=== PATIENT | male | born 1955 | race Caucasian/White ===

== ENCOUNTER 2018-05-26 16:55 | Emergency (ER) | payer OTHER, MEDICAID, SELFPAY ==
[2018-05-26 16:57] VITALS: BP 131/87; PULSE 85; RESP 20; O2SAT 97
--- NOTE | 2018-05-26 17:01 | DI.RAD.S_ITS ---
PROCEDURE: XR CHEST 1V INDICATIONS: chest tightness/soa TECHNIQUE: One view of the chest was acquired. COMPARISON: [facility], CHEST 2 VIEW, 10/19/2017, 10:49. [facility], CHEST 2 VIEW, 12/30/2017, 7:55. FINDINGS: Surgical changes and devices: None. Lungs and pleura: No pleural effusions or pneumothorax. Lungs are clear. Mediastinum: The cardiac contours are within normal limits. The aorta demonstrates calcification and tortuosity. Bones and chest wall: No suspicious bony lesions. Age-appropriate bony degenerative changes are seen. Overlying soft tissues appear unremarkable. IMPRESSION: Portable chest within normal limits. Dictated by: Quincy Peter M.D. on 05/26/2018 at 16:43 Approved by: Quincy Peter M.D. on 05/26/2018 at 16:45
[2018-05-26 17:19] LABS: Add Manual Diff / Slide Review NO; Basophils Percent Auto 0.8 % (0-2); Eosinophils Percent Auto 1.4 % (2-4); Hematocrit 42.6 % (41-53); Hemoglobin 14.8 g/dL (13.5-17.5); Lymphocytes Percent Auto 30.7 % (25-40); Mean Corpuscular HGB Conc 34.7 % (30-36); Mean Corpuscular Hemoglobin 30.8 PG (26-34); Mean Corpuscular Volume 88.8 fL (80-100); Monocytes Percent Auto 9.9 % (3-14); Neutrophils Absolute Auto 3000 /uL (3000-5900); Neutrophils Percent Auto 57.2 % (50-75); Platelet Count 190 X10^3/uL (150-400); Red Cell Distribution Width 14.5 % (11.6-14.8); White Blood Cell Count 5.3 X10^3/uL (4.5-11.0)
[2018-05-26 17:37] LABS: Alanine Aminotransferase 137 IU/L (21-72); Albumin 4.6 g/dL (3.5-5.0); Albumin Globulin Ratio 1.5 (1.0-2.8); Alkaline Phosphatase 37 U/L (38-126); Aspartate Aminotransferase 69 IU/L (17-59); BUN Creatinine Ratio 17.5 (6-22); Bilirubin Total 0.4 mg/dL (0.2-1.3); Blood Urea Nitrogen 14 mg/dL (9-20); Calcium 9.9 mg/dL (8.4-10.2); Carbon Dioxide 27 mmol/L (22-32); Chloride 103 mmol/L (98-107); Creatine Kinase 105 U/L (55-170); Estimated Glomerular Filt Rate > 60.0 mL/min (>60); Glucose 92 mg/dL (80-110); HEMOLYSIS 32 (0-50); Lipase 195 U/L (23-300); Potassium 4.5 mmol/L (3.4-5.1); Sodium 141 mmol/L (137-145); Total Protein 7.6 g/dL (6.3-8.2)
[2018-05-26 17:53] LABS: Troponin I < 0.012 ng/mL (0.01-0.034)
[2018-05-26 18:07] VITALS: BP 130/84; PULSE 84; RESP 18; O2SAT 96
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
[2018-05-26] MEDS: predniSONE 20 MG TABLET 60 MG PO (18:57)
[2018-05-26 19:02] VITALS: BP 136/81; PULSE 80; RESP 23; O2SAT 98
[2018-05-26 19:17] VITALS: BP 135/83
[2018-05-26 19:23] VITALS: BP 136/83; PULSE 82; RESP 15; TEMP 36.6; O2SAT 96
== END 2018-05-26 19:24 | disposition home or self-care (01) ==
PROVIDERS: Emergency Medicine; Emergency Provider Emergency Medicine; Family Provider Family Medicine; PCP Family Medicine
DX: J45.901 Unspecified asthma with (acute) exacerbation (principal)
CPT/HCPCS: 36591; 71045; 80053; 82550; 82553; 83690; 84484; 85025; 93005; 93010; 99283; 99285

== ENCOUNTER 2019-03-15 08:15 | Outpatient (RCR) | payer OTHER, MEDICAID, SELFPAY ==
--- NOTE | 2019-01-25 09:38 | PT.OIE ---
Current Diagnoses Unilateral primary osteoarthritis, unspecified knee (01/25/19) Past Medical History (Last Reviewed 06/02/18 @ 18:23 by Tiff Amaral MD) Flu (Resolved) Pneumonia (Resolved) Pulmonary nodule (Acute) Asthma with exacerbation (Inactive) Past Surgical History (Last Updated 06/02/18 @ 18:24 by Tiff Amaral MD) No pertinent past surgical history (Acute) Provider Visit Care Team Role Provider Type Alva Rogers MD Primary Care Provider Non-Staff Specialty: Medical Address: [address] [place] [address], [id number] Email: Nelson Thomas MD Attending Provider Physician Specialty: Orthopedic Surgery Address: [address] [place] [address], [id number] Email: [email or web address] [facility] Initial Evaluation PT-OP-A Visit Information Start: 01/25/19 08:59 Freq: Status: Active Protocol: Document 01/25/19 08:15 HH (Rec: 01/25/19 09:38 HH [email or web address]) Out-Patient Physical Therapy Visit Information Visit Information Visit Type Initial Evaluation Visit Start Time 08:15 Visit Stop Time 09:00 Total Visit Minutes 45 Visit Number 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 His pain got worse since 2017 and started to receive Hyaluronic acid injection for both knees 3 times every 5 months. He states it is very helpful to control his pain. Pt also partipated outpatient PT in [place] for overall strengthening and balance training but he was d/c early Oct, 2018. Pt's pain usually get worse with getting up from chair, getting up from floor, climbing ladder and descending from stairs. Pt used step over for ascend but step to pattern for decsend. He tends to feel better with ice and inactivity. 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 Prior Treatments and Tests Hyaluronic acid injection ( last shot in oct, 2018) Future Testing and Treatments Planned Hyaluronic acid injection Treatment Goals Patient/Caregiver Goals 1. To be able to get up and down from chair easier without discomfort 2. pain free for functional activities 3. use step over pattern for stair descending 4. Able to walk > 1mile without pain Prior Functional Status Baseline Function- ADL's Independent Baseline Function- Mobility Independent Current Functional Impairments (Reported) Functional Limitations- Mobility/Gait step to gait during stair descending Increased WB on LLE during gait PT-OP-C Subjective Start: 01/25/19 08:59 Freq: Status: Active Protocol: Document 01/25/19 08:15 HH (Rec: 01/25/19 09:11 HH [email or web address]) OP-PT Subjective Patient Comments Patient Comments My knee pain today is actually pretty good compared to most of the days. I am excited to start PT. Patient Questionnaires Lower Extremity Functional Scale LEFS Score 25 LEFS Impairment 60 to 79% Impaired (Score 17- 31) OP-PT Pain Assessment Location Bilateral knee Pain Location Details joint line Intensity 7 Scale Used Numeric (1 - 10) Description Aching Chronic Dull Frequency Frequent Pain Aggravating Factors ADL's Activity Exercise Standing Walking Stair Climbing Lifting Pain Alleviating Factors Cold Inactivity PT-OP-D Balance Start: 01/25/19 08:59 Freq: Status: Active Protocol: Document 01/25/19 08:15 HH (Rec: 01/25/19 09:38 [email or web address]) OP-PT Balance Assessment Sitting Balance Static Sitting Balance Ability Normal Dynamic Sitting Balance Ability Normal Standing Balance Static Standing Balance Ability Normal Dynamic Standing Balance Ability Normal Balance Tests Single Limb Standing Single Limb- Right 13 Single Limb- Left 15 Tandem Tandem Standing 20 Other Other Balance Tests Performed Single leg stance with EC= 2 s tandem with EC = 2 s Howard Fall Scale Copyright Permission Anita HARO, Anita RM, Saulo SJ. Development of a scale to identify the fall- prone patient. Can J Aging 1989;8;366-7. Nikky Howard (2009). Preventing patient falls. (2nd ed). [place]: [place]. PT-OP-E Functional Tests Start: 01/25/19 08:59 Freq: Status: Active Protocol: Document 01/25/19 08:15 HH (Rec: 01/25/19 09:38 [email or web address]) Functional Tests Five Times Sit to Stand Test Score 14 PT-OP-G Mobility & Gait Start: 01/25/19 08:59 Freq: Status: Active Protocol: Document 01/25/19 08:15 HH (Rec: 01/25/19 09:38 [email or web address]) OP Gait Assessment Gait Gait Assistance Required: Independent Assistive Devices Assistive Device None Gait Deviations General Gait Pattern Antalgic Decreased Stride Length Decreased Feet Clearance Wide Based Gait Factors Limiting Gait Function Factors Limiting Gait Function Decreased Activity Tolerance Decreased Strength Limited Range of Motion Pain Poor Balance Comments Gait Comments Monument R step length; increased WB on LLE (harder impact): WBOS Stair Climbing Evaluation Evaluation Level of Assist On Stairs Independent Technique/Endurance Stair Climbing Direction Ascend Stair Climbing Technique Step Over Step Step to Step Comments Stair Climbing Comments ascend= step over descend = step to PT-OP-J Posture/Palpation/Skin Start: 01/25/19 08:59 Freq: Status: Active Protocol: Document 01/25/19 08:15 HH (Rec: 01/25/19 09:38 [email or web address]) Posture Evaluation Position Standing Evaluation View Anterior Weight Distribution Weight Shifted Left Knee Posture (L) Ext. Tibial Torsion (R) Ext. Tibial Torsion (R) Excess Flexion Ankle/Foot Posture (L) Pronated (R) Pronated Palpation Assessment Location Medial knee joint line Palpation Findings Tenderness Palpation Details significant tenderness to touch and pressure and medial joint line PT-OP-K Range of Motion Start: 01/25/19 08:59 Freq: Status: Active Protocol: Document 01/25/19 08:15 HH (Rec: 01/25/19 09:38 [email or web address]) Knee Goniometric Range of Motion Knee Measured in Degrees Right Knee ROM WFL Yes Patient Position Supine Flexion Active (degrees) 120 Flexion Passive (degrees) 130 Extension Active (degrees) 7 Left Knee ROM WFL Yes Patient Position Supine Flexion Active (degrees) 130 Flexion Passive (degrees) 140 Extension Active (degrees) 2 PT-OP-L Special Tests Start: 01/25/19 08:59 Freq: Status: Active Protocol: Document 01/25/19 08:15 HH (Rec: 01/25/19 09:38 [email or web address]) Special Tests Knee Special Tests Apley's Compression Test Results -ve Faustino Test Test Results -ve Varus- 0 Degrees Test Results -ve Valgus- 25 Degrees Test Results +ve on R Varus- 25 Degrees Test Results +ve on R Valgus- 0 Degrees Test Results -ve PT-OP-M Strength Start: 01/25/19 08:59 Freq: Status: Active Protocol: Document 01/25/19 08:15 (Rec: 01/25/19 09:38 [email or web address]) Hip Strength Hip Manual Muscle Testing Right Flexion (L2) 5 Normal Extension (S1) 5 Normal Abduction 5 Normal Adduction 5 Normal Left Flexion (L2) 5 Normal Extension (S1) 4 Good Abduction 4 Good Adduction 4 Good Knee Strength Knee Manual Muscle Testing Right Flexion (S2) 4+ Good+ Extension (L3) 4+ Good+ Left Flexion (S2) 4- Good- Extension (L3) 4- Good- PT-OP-T Assessment and Plan Start: 01/25/19 08:59 Freq: Status: Active Protocol: Document 01/25/19 08:15 (Rec: 01/25/19 09:38 [email or web address]) Physical Therapy Assessment Rehab Potential Rehabilitation Potential Excellent Evaluation Complexity Number of Personal Factors/Comorbidities 1-2 Number of Body Systems Impaired 1-2 Clinical Presentation at Evaluation Stable Impairments Impairments Activity Tolerance Balance Functional Activities Functional Mobility Gait Pain Posture ROM Sensation Soft Tissue Mobility Strength Goals transfers Impairment increased time for sit to stand and floor recovery Halfway Goal (LTG) Pt will be able to complete 5x STS in 10 seconds without UE support and recover from floor independently. 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 LTG Duration 8 weeks Stair climbing Impairment pt uses step to pattern for descend Halfway Goal (LTG) Pt will be able to descend with step over pattern safely and independently. LTG Duration 8 weeks LEFS Impairment low score= 25 (60-79% impairment) Natural Fabricator Goal (LTG) Pt will score 20-39% bracket to improve his overall functional mobility and quality of life such as pain free for sit to stand, standing >1 hour, walk >1 hour etc. LTG Duration 8 weeks Assessment Summary Assessment Pt is a mod complexity due to his chronic B knee pain and balance deficits. Pt's currently does not have too much discomfort/pain due to his Hyaluronic acid injection. However, there's noticeable decreased knee ROM (R>L) and strength (L>R) upon assessment . Pt tends to amb with increase WB on L side along with shorted R step length possibly due to pain. 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 Pt performed 5 x STS = 14s ( average cut off =11.4s), has significant difficult time with eyes closed for balance activities. Pt will benefit from skilled PT to improve his overall knee ROM, B LE strengthening to optimize his functional mobility such as stair climbing and tolerance for walking and standing. Physical Therapy Plan Frequency and Duration Frequency of Treatment 2x/Week Duration of Treatment 8 weeks Plan of Care Start Date 01/25/19 Plan of Care End Date 03/27/19 Therapeutic Interventions Therapeutic Interventions Balance Training Gait Training Home Exercise Program Joint Mobilizations Manual Therapy Neuromuscular Re-education Patient/Caregiver Education Self-Care/Home Management Soft Tissue Mobilization Taping Therapeutic Activities Therapeutic Exercises Modalities Cold Pack/Ice Massage Electric Stimulation Hot Packs Infrared Therapy Ultrasound Next Visit Focus/Plan Next Note Type Treatment Note Next Visit Plan provide HEP start bike/ eliptical B TKE leg press focus on control and strength single leg stance , strengthening , control hip hinge
--- NOTE | 2019-01-25 09:38 | PT.OPPOC ---
Current Diagnoses Unilateral primary osteoarthritis, unspecified knee (01/25/19) Provider Visit Care Team Role Provider Type Alva Rogers MD Primary Care Provider Non-Staff Specialty: Medical Address: [address] [place] [address], [id number] Email: Nelson Thomas MD Attending Provider Physician Specialty: Orthopedic Surgery Address: [address] [place] [address], [id number] Email: [email or web address] Plan Of Care PT-OP-T Assessment and Plan Start: 01/25/19 08:59 Freq: Status: Active Protocol: Document 01/25/19 08:15 HH (Rec: 01/25/19 09:38 HH [email or web address]) Physical Therapy Assessment Rehab Potential Rehabilitation Potential Excellent Evaluation Complexity Number of Personal Factors/Comorbidities 1-2 Number of Body Systems Impaired 1-2 Clinical Presentation at Evaluation Stable Impairments Impairments Activity Tolerance Balance Functional Activities Functional Mobility Gait Pain Posture ROM Sensation Soft Tissue Mobility Strength Goals transfers Impairment increased time for sit to stand and floor recovery Assisted Goal (LTG) Pt will be able to complete 5x STS in 10 seconds without UE support and recover from floor independently. 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 LTG Duration 8 weeks Stair climbing Impairment pt uses step to pattern for descend Operating System Designer Goal (LTG) Pt will be able to descend with step over pattern safely and independently. LTG Duration 8 weeks LEFS Impairment low score= 25 (60-79% impairment) Operating System Designer Goal (LTG) Pt will score 20-39% bracket to improve his overall functional mobility and quality of life such as pain free for sit to stand, standing >1 hour, walk >1 hour etc. LTG Duration 8 weeks Assessment Summary Assessment Pt is a mod complexity due to his chronic B knee pain and balance deficits. Pt's currently does not have too much discomfort/pain due to his Hyaluronic acid injection. However, there's noticeable decreased knee ROM (R>L) and strength (L>R) upon assessment . Pt tends to amb with increase WB on L side along with shorted R step length possibly due to pain. 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 Pt performed 5 x STS = 14s ( average cut off =11.4s), has significant difficult time with eyes closed for balance activities. Pt will benefit from skilled PT to improve his overall knee ROM, B LE strengthening to optimize his functional mobility such as stair climbing and tolerance for walking and standing. Physical Therapy Plan Frequency and Duration Frequency of Treatment 2x/Week Duration of Treatment 8 weeks Plan of Care Start Date 01/25/19 Plan of Care End Date 03/27/19 Therapeutic Interventions Therapeutic Interventions Balance Training Gait Training Home Exercise Program Joint Mobilizations Manual Therapy Neuromuscular Re-education Patient/Caregiver Education Self-Care/Home Management Soft Tissue Mobilization Taping Therapeutic Activities Therapeutic Exercises Modalities Cold Pack/Ice Massage Electric Stimulation Hot Packs Infrared Therapy Ultrasound Next Visit Focus/Plan Next Note Type Treatment Note Next Visit Plan provide HEP start bike/ eliptical B TKE leg press focus on control and strength single leg stance , strengthening , control hip hinge Plan of Care Dates Plan of Care Start Date 01/25/19 Plan of Care End Date 03/27/19 Please Sign and Return: I have reviewed this Plan of Care and certify that the skilled therapy services above are required to meet the patient?s needs. Physician Signature Date Printed Name and Credentials Clinical Instructor Signature Printed Name and Credentials
--- NOTE | 2019-01-27 12:58 | PT.OTN ---
Current Diagnoses Unilateral primary osteoarthritis, unspecified knee (01/27/19) Physical Therapy Treatment Note PT-OP-A Visit Information Start: 01/25/19 08:59 Freq: Status: Active Protocol: Document 01/27/19 12:57 EA (Rec: 01/27/19 12:58 EA [id number]) Out-Patient Physical Therapy Visit Information Visit Information Visit Type Treatment Note Visit Start Time 12:15 Visit Stop Time 13:00 Total Visit Minutes 45 Visit Number 2 Number of OTOLARYNGOLOGY REP Visits 0 PT-OP-B Current Condition Start: 01/25/19 08:59 Freq: Status: Active Protocol: Document 01/25/19 08:15 HH (Rec: 01/25/19 09:11 HH [email or web address]) Current Condition History of Current Condition Onset Date >10 years ago Current Complaints B knee pain, impaired gait, decreased activity tolerance History of Current Condition Pt presents to clinic with c/o chronic B knee pain due to OA more than 10 years ago. His pain got worse since 2016 and started to receive Hyaluronic acid injection for both knees 3 times every 5 months. He states it is very helpful to control his pain. Pt also partipated outpatient PT in [place] for overall strengthening and balance training but he was d/c early Oct, 2018. Pt's pain usually get worse with getting up from chair, getting up from floor, climbing ladder and descending from stairs. Pt used step over for ascend but step to pattern for decsend. He tends to feel better with ice and inactivity. 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 Prior Treatments and Tests Hyaluronic acid injection ( last shot in oct, 2018) Future Testing and Treatments Planned Hyaluronic acid injection Treatment Goals Patient/Caregiver Goals 1. To be able to get up and down from chair easier without discomfort 2. pain free for functional activities 3. use step over pattern for stair descending 4. Able to walk > 1mile without pain Prior Functional Status Baseline Function- ADL's Independent Baseline Function- Mobility Independent Current Functional Impairments (Reported) Functional Limitations- Mobility/Gait step to gait during stair descending Increased WB on LLE during gait PT-OP-C Subjective Start: 01/25/19 08:59 Freq: Status: Active Protocol: Document 01/27/19 12:45 EA (Rec: 01/27/19 12:57 EA [id number]) OP-PT Subjective Patient Comments Patient Comments This is one of my bad days states unable to sleep last due to leg cramps. PT-OP-D Balance Start: 01/25/19 08:59 Freq: Status: Active Protocol: Document 01/25/19 08:15 HH (Rec: 01/25/19 09:38 HH [email or web address]) OP-PT Balance Assessment Sitting Balance Static Sitting Balance Ability Normal Dynamic Sitting Balance Ability Normal Standing Balance Static Standing Balance Ability Normal Dynamic Standing Balance Ability Normal Balance Tests Single Limb Standing Single Limb- Right 13 Single Limb- Left 15 Tandem Tandem Standing 20 Other Other Balance Tests Performed Single leg stance with EC= 2 s tandem with EC = 2 s Howard Fall Scale Copyright Permission Anita HARO, Anita RM, Saulo SJ. Development of a scale to identify the fall- prone patient. Can J Aging 1989;8;366-7. Nikky Howard (2009). Preventing patient falls. (2nd ed). [place]: [place]. PT-OP-E Functional Tests Start: 01/25/19 08:59 Freq: Status: Active Protocol: Document 01/25/19 08:15 HH (Rec: 01/25/19 09:38 HH [email or web address]) Functional Tests Five Times Sit to Stand Test Score 14 PT-OP-G Mobility & Gait Start: 01/25/19 08:59 Freq: Status: Active Protocol: Document 01/25/19 08:15 HH (Rec: 01/25/19 09:38 [email or web address]) OP Gait Assessment Gait Gait Assistance Required: Independent Assistive Devices Assistive Device None Gait Deviations General Gait Pattern Antalgic Decreased Stride Length Decreased Feet Clearance Wide Based Gait Factors Limiting Gait Function Factors Limiting Gait Function Decreased Activity Tolerance Decreased Strength Limited Range of Motion Pain Poor Balance Comments Gait Comments Stewart R step length; increased WB on LLE (harder impact): WBOS Stair Climbing Evaluation Evaluation Level of Assist On Stairs Independent Technique/Endurance Stair Climbing Direction Ascend Stair Climbing Technique Step Over Step Step to Step Comments Stair Climbing Comments ascend= step over descend = step to PT-OP-J Posture/Palpation/Skin Start: 01/25/19 08:59 Freq: Status: Active Protocol: Document 01/25/19 08:15 HH (Rec: 01/25/19 09:38 HH [email or web address]) Posture Evaluation Position Standing Evaluation View Anterior Weight Distribution Weight Shifted Left Knee Posture (L) Ext. Tibial Torsion (R) Ext. Tibial Torsion (R) Excess Flexion Ankle/Foot Posture (L) Pronated (R) Pronated Palpation Assessment Location Medial knee joint line Palpation Findings Tenderness Palpation Details significant tenderness to touch and pressure and medial joint line PT-OP-K Range of Motion Start: 01/25/19 08:59 Freq: Status: Active Protocol: Document 01/25/19 08:15 HH (Rec: 01/25/19 09:38 HH [email or web address]) Knee Goniometric Range of Motion Knee Measured in Degrees Right Knee ROM WFL Yes Patient Position Supine Flexion Active (degrees) 120 Flexion Passive (degrees) 130 Extension Active (degrees) 7 Left Knee ROM WFL Yes Patient Position Supine Flexion Active (degrees) 130 Flexion Passive (degrees) 140 Extension Active (degrees) 2 PT-OP-L Special Tests Start: 01/25/19 08:59 Freq: Status: Active Protocol: Document 01/25/19 08:15 HH (Rec: 01/25/19 09:38 HH [email or web address]) Special Tests Knee Special Tests Apley's Compression Test Results -ve Faustino Test Test Results -ve Varus- 0 Degrees Test Results -ve Valgus- 25 Degrees Test Results +ve on R Varus- 25 Degrees Test Results +ve on R Valgus- 0 Degrees Test Results -ve PT-OP-M Strength Start: 01/25/19 08:59 Freq: Status: Active Protocol: Document 01/25/19 08:15 HH (Rec: 01/25/19 09:38 HH [email or web address]) Hip Strength Hip Manual Muscle Testing Right Flexion (L2) 5 Normal Extension (S1) 5 Normal Abduction 5 Normal Adduction 5 Normal Left Flexion (L2) 5 Normal Extension (S1) 4 Good Abduction 4 Good Adduction 4 Good Knee Strength Knee Manual Muscle Testing Right Flexion (S2) 4+ Good+ Extension (L3) 4+ Good+ Left Flexion (S2) 4- Good- Extension (L3) 4- Good- PT-OP-Q Treatments Start: 01/25/19 08:59 Freq: Status: Active Protocol: Document 01/27/19 12:45 EA (Rec: 01/27/19 12:57 EA [id number]) Cardio Equipment Recumbent Elliptical (Ailvxing net) Duration (Minutes) 6 Resistance 3 Gym Equipment Shuttle Recovery Unilateral Squats Resistance 2 cords Shuttle Recovery Platform Stable Reps/Time x 12 reps x 2 set Bilateral Squats Details pain free range Resistance 4 cords Shuttle Recovery Platform Stable Reps/Time x 15 reps x 2 Therapeutic Exercises Supine Exercises 1 Supine Exercise Name hamstring stretch Side bilateral Reps/Minutes x 15 SH Sidelying Exercises 1 Sidelying Exercise Name qudas stretch Side bilateral Reps/Minutes x 15SH Standing Exercises 3 Standing Exercise Name 4 stairs descent and step back with both hand support Side right Reps/Minutes x 10 reps Comments left d/c due to pain 2 Standing Exercise Name terminal knee ext Side bilateral Equipment Used Lv 4 Reps/Minutes x 10 reps 1 Standing Exercise Name wall squats Side bilateral Reps/Minutes x 10 reps Self-Care/Home Management Treatment Education Patient Education Home Exercise Program Joint Protection Pain Management Other Education Home exercises given and educated with safety PT-OP-R Modalities Start: 01/25/19 08:59 Freq: Status: Active Protocol: Document 01/27/19 12:45 EA (Rec: 01/27/19 12:57 EA [email or web address]) Hot Pack/Cold Pack Treatment Cold Pack Patient Position Hooklying Treatment Duration (minutes) 15 Patient Tolerance Fair PT-OP-T Assessment and Plan Start: 01/25/19 08:59 Freq: Status: Active Protocol: Document 01/27/19 12:45 EA (Rec: 01/27/19 12:57 EA [id number]) Physical Therapy Assessment Assessment Summary Assessment Pt requires cues with squats and leg presses as both feet tends to move laterally. Patient shows decreased tolerance to all exercises and requires frequent rests. Physical Therapy Plan Next Visit Focus/Plan Next Note Type Treatment Note
--- NOTE | 2019-02-08 09:17 | PT.OTN ---
Current Diagnoses Unilateral primary osteoarthritis, unspecified knee (02/08/19) Physical Therapy Treatment Note PT-OP-A Visit Information Start: 01/25/19 08:59 Freq: Status: Active Protocol: Document 02/08/19 08:15 HH (Rec: 02/08/19 09:17 [email or web address]) Out-Patient Physical Therapy Visit Information Visit Information Visit Type Treatment Note Visit Start Time 08:15 Visit Stop Time 09:00 Total Visit Minutes 45 Visit Number 3 Number of MODULAR HOME CREW MEMBER Visits 0 PT-OP-B Current Condition Start: 01/25/19 08:59 Freq: Status: Active Protocol: Document 01/25/19 08:15 HH (Rec: 01/25/19 09:11 HH [email or web address]) Current Condition History of Current Condition Onset Date >10 years ago Current Complaints B knee pain, impaired gait, decreased activity tolerance History of Current Condition Pt presents to clinic with c/o chronic B knee pain due to OA more than 10 years ago. His pain got worse since 2016 and started to receive Hyaluronic acid injection for both knees 3 times every 5 months. He states it is very helpful to control his pain. Pt also partipated outpatient PT in [place] for overall strengthening and balance training but he was d/c early Oct, 2018. Pt's pain usually get worse with getting up from chair, getting up from floor, climbing ladder and descending from stairs. Pt used step over for ascend but step to pattern for decsend. He tends to feel better with ice and inactivity. 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 Prior Treatments and Tests Hyaluronic acid injection ( last shot in oct, 2018) Future Testing and Treatments Planned Hyaluronic acid injection Treatment Goals Patient/Caregiver Goals 1. To be able to get up and down from chair easier without discomfort 2. pain free for functional activities 3. use step over pattern for stair descending 4. Able to walk > 1mile without pain Prior Functional Status Baseline Function- ADL's Independent Baseline Function- Mobility Independent Current Functional Impairments (Reported) Functional Limitations- Mobility/Gait step to gait during stair descending Increased WB on LLE during gait PT-OP-C Subjective Start: 01/25/19 08:59 Freq: Status: Active Protocol: Document 02/08/19 08:15 HH (Rec: 02/08/19 09:17 [email or web address]) OP-PT Subjective Patient Comments Patient Comments The past couple days was bad. Working 12-15 hours a day makes my knee hurt. PT-OP-D Balance Start: 01/25/19 08:59 Freq: Status: Active Protocol: Document 01/25/19 08:15 HH (Rec: 01/25/19 09:38 HH [email or web address]) OP-PT Balance Assessment Sitting Balance Static Sitting Balance Ability Normal Dynamic Sitting Balance Ability Normal Standing Balance Static Standing Balance Ability Normal Dynamic Standing Balance Ability Normal Balance Tests Single Limb Standing Single Limb- Right 13 Single Limb- Left 15 Tandem Tandem Standing 20 Other Other Balance Tests Performed Single leg stance with EC= 2 s tandem with EC = 2 s Howard Fall Scale Copyright Permission Anita HARO, Anita RM, Saulo SJ. Development of a scale to identify the fall- prone patient. Can J Aging 1989;8;366-7. Nikky Howard (2009). Preventing patient falls. (2nd ed). [place]: [place]. PT-OP-E Functional Tests Start: 01/25/19 08:59 Freq: Status: Active Protocol: Document 01/25/19 08:15 HH (Rec: 01/25/19 09:38 HH [email or web address]) Functional Tests Five Times Sit to Stand Test Score 14 PT-OP-G Mobility & Gait Start: 01/25/19 08:59 Freq: Status: Active Protocol: Document 01/25/19 08:15 HH (Rec: 01/25/19 09:38 [email or web address]) OP Gait Assessment Gait Gait Assistance Required: Independent Assistive Devices Assistive Device None Gait Deviations General Gait Pattern Antalgic Decreased Stride Length Decreased Feet Clearance Wide Based Gait Factors Limiting Gait Function Factors Limiting Gait Function Decreased Activity Tolerance Decreased Strength Limited Range of Motion Pain Poor Balance Comments Gait Comments [place] R step length; increased WB on LLE (harder impact): WBOS Stair Climbing Evaluation Evaluation Level of Assist On Stairs Independent Technique/Endurance Stair Climbing Direction Ascend Stair Climbing Technique Step Over Step Step to Step Comments Stair Climbing Comments ascend= step over descend = step to PT-OP-J Posture/Palpation/Skin Start: 01/25/19 08:59 Freq: Status: Active Protocol: Document 01/25/19 08:15 HH (Rec: 01/25/19 09:38 HH [email or web address]) Posture Evaluation Position Standing Evaluation View Anterior Weight Distribution Weight Shifted Left Knee Posture (L) Ext. Tibial Torsion (R) Ext. Tibial Torsion (R) Excess Flexion Ankle/Foot Posture (L) Pronated (R) Pronated Palpation Assessment Location Medial knee joint line Palpation Findings Tenderness Palpation Details significant tenderness to touch and pressure and medial joint line PT-OP-K Range of Motion Start: 01/25/19 08:59 Freq: Status: Active Protocol: Document 01/25/19 08:15 HH (Rec: 01/25/19 09:38 [email or web address]) Knee Goniometric Range of Motion Knee Measured in Degrees Right Knee ROM WFL Yes Patient Position Supine Flexion Active (degrees) 120 Flexion Passive (degrees) 130 Extension Active (degrees) 7 Left Knee ROM WFL Yes Patient Position Supine Flexion Active (degrees) 130 Flexion Passive (degrees) 140 Extension Active (degrees) 2 PT-OP-L Special Tests Start: 01/25/19 08:59 Freq: Status: Active Protocol: Document 01/25/19 08:15 HH (Rec: 01/25/19 09:38 [email or web address]) Special Tests Knee Special Tests Apley's Compression Test Results -ve Faustino Test Test Results -ve Varus- 0 Degrees Test Results -ve Valgus- 25 Degrees Test Results +ve on R Varus- 25 Degrees Test Results +ve on R Valgus- 0 Degrees Test Results -ve PT-OP-M Strength Start: 01/25/19 08:59 Freq: Status: Active Protocol: Document 01/25/19 08:15 HH (Rec: 01/25/19 09:38 [email or web address]) Hip Strength Hip Manual Muscle Testing Right Flexion (L2) 5 Normal Extension (S1) 5 Normal Abduction 5 Normal Adduction 5 Normal Left Flexion (L2) 5 Normal Extension (S1) 4 Good Abduction 4 Good Adduction 4 Good Knee Strength Knee Manual Muscle Testing Right Flexion (S2) 4+ Good+ Extension (L3) 4+ Good+ Left Flexion (S2) 4- Good- Extension (L3) 4- Good- PT-OP-Q Treatments Start: 01/25/19 08:59 Freq: Status: Active Protocol: Document 02/08/19 08:15 HH (Rec: 02/08/19 09:17 HH [email or web address]) Gym Equipment Shuttle Recovery bilateral squats (feet at center) Resistance 3 cords Shuttle Recovery Platform Stable Reps/Time 15 reps x 2 Unilateral Squats Resistance 2 cords Shuttle Recovery Platform Stable Reps/Time x 12 reps x 2 set Bilateral Squats Details pain free range (feet towards top of platform) Resistance 3 cords Shuttle Recovery Platform Stable Reps/Time 15 reps x 2 Therapeutic Exercises Supine Exercises hip ER and tibial IR Side bilateral Equipment Used green band Reps/Minutes 8 mins Comments faciltiate hip ER Manual Therapy Treatment Joint Mobilizations PA mob Grade III Body Position Sitting Reps/Duration 5 mins B knee distraction Grade III Body Position Sitting Reps/Duration 5 mins Self-Care/Home Management Treatment Education Patient Education Home Exercise Program Joint Protection Pain Management Other Education HEP hip ER in supine Home exercises given and educated with safety PT-OP-R Modalities Start: 01/25/19 08:59 Freq: Status: Active Protocol: Document 01/27/19 12:45 EA (Rec: 01/27/19 12:57 EA [id number]) Hot Pack/Cold Pack Treatment Cold Pack Patient Position Hooklying Treatment Duration (minutes) 15 Patient Tolerance Fair PT-OP-T Assessment and Plan Start: 01/25/19 08:59 Freq: Status: Active Protocol: Document 02/08/19 08:15 HH (Rec: 02/08/19 09:17 HH [email or web address]) Physical Therapy Assessment Goals transfers Impairment increased time for sit to stand and floor recovery Correction Goal (LTG) Pt will be able to complete 5x STS in 10 seconds without UE support and recover from floor independently. 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 LTG Duration 8 weeks Stair climbing Impairment pt uses step to pattern for descend Correction Goal (LTG) Pt will be able to descend with step over pattern safely and independently. LTG Duration 8 weeks LEFS Impairment low score= 25 (60-79% impairment) Correction Goal (LTG) Pt will score 20-39% bracket to improve his overall functional mobility and quality of life such as pain free for sit to stand, standing >1 hour, walk >1 hour etc. LTG Duration 8 weeks Assessment Summary Assessment Pt denies pain during joint mob. pt was able to stand up from regular chair without discomfort but c/o pain during shuttle leg press with 3 cords (75#) which is somewhat inconsistent. He also often request for rest/ restroom break due to SOB/ reported pain. Educated pt the importance of increasing physical activities in pain free range for weight loss. Pt also states I will eventually get a surgery. Physical Therapy Plan Next Visit Focus/Plan Next Note Type Treatment Note Next Visit Plan pain free range of LLE strengthening <90-100 degrees bike/ eliptical ankle df, big toe df hip er, abductor stregnthening
--- NOTE | 2019-02-22 11:31 | PT.OTN ---
Current Diagnoses Unilateral primary osteoarthritis, unspecified knee (02/22/19) Physical Therapy Treatment Note PT-OP-A Visit Information Start: 01/25/19 08:59 Freq: Status: Active Protocol: Document 02/22/19 08:15 HH (Rec: 02/22/19 11:31 [email or web address]) Out-Patient Physical Therapy Visit Information Visit Information Visit Type Treatment Note Visit Start Time 08:15 Visit Stop Time 09:00 Total Visit Minutes 45 Visit Number 4 Number of SALES PROMOTION MANAGER Visits 0 PT-OP-B Current Condition Start: 01/25/19 08:59 Freq: Status: Active Protocol: Document 01/25/19 08:15 HH (Rec: 01/25/19 09:11 [email or web address]) Current Condition History of Current Condition Onset Date >10 years ago Current Complaints B knee pain, impaired gait, decreased activity tolerance History of Current Condition Pt presents to clinic with c/o chronic B knee pain due to OA more than 10 years ago. His pain got worse since 2016 and started to receive Hyaluronic acid injection for both knees 3 times every 5 months. He states it is very helpful to control his pain. Pt also partipated outpatient PT in [place] for overall strengthening and balance training but he was d/c early Oct, 2018. Pt's pain usually get worse with getting up from chair, getting up from floor, climbing ladder and descending from stairs. Pt used step over for ascend but step to pattern for decsend. He tends to feel better with ice and inactivity. 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 Prior Treatments and Tests Hyaluronic acid injection ( last shot in oct, 2018) Future Testing and Treatments Planned Hyaluronic acid injection Treatment Goals Patient/Caregiver Goals 1. To be able to get up and down from chair easier without discomfort 2. pain free for functional activities 3. use step over pattern for stair descending 4. Able to walk > 1mile without pain Prior Functional Status Baseline Function- ADL's Independent Baseline Function- Mobility Independent Current Functional Impairments (Reported) Functional Limitations- Mobility/Gait step to gait during stair descending Increased WB on LLE during gait PT-OP-C Subjective Start: 01/25/19 08:59 Freq: Status: Active Protocol: Document 02/22/19 08:15 HH (Rec: 02/22/19 11:31 [email or web address]) OP-PT Subjective Patient Comments Patient Comments It's been the same and my pain gets aggravated easily after working. I;ve been wearing my comfort shoes more often lately. PT-OP-D Balance Start: 01/25/19 08:59 Freq: Status: Active Protocol: Document 01/25/19 08:15 HH (Rec: 01/25/19 09:38 HH [email or web address]) OP-PT Balance Assessment Sitting Balance Static Sitting Balance Ability Normal Dynamic Sitting Balance Ability Normal Standing Balance Static Standing Balance Ability Normal Dynamic Standing Balance Ability Normal Balance Tests Single Limb Standing Single Limb- Right 13 Single Limb- Left 15 Tandem Tandem Standing 20 Other Other Balance Tests Performed Single leg stance with EC= 2 s tandem with EC = 2 s Howard Fall Scale Copyright Permission Anita HARO, Anita RM, Saulo SJ. Development of a scale to identify the fall- prone patient. Can J Aging 1989;8;366-7. Nikky Howard (2009). Preventing patient falls. (2nd ed). [place]: [place]. PT-OP-E Functional Tests Start: 01/25/19 08:59 Freq: Status: Active Protocol: Document 01/25/19 08:15 HH (Rec: 01/25/19 09:38 [email or web address]) Functional Tests Five Times Sit to Stand Test Score 14 PT-OP-G Mobility & Gait Start: 01/25/19 08:59 Freq: Status: Active Protocol: Document 01/25/19 08:15 HH (Rec: 01/25/19 09:38 [email or web address]) OP Gait Assessment Gait Gait Assistance Required: Independent Assistive Devices Assistive Device None Gait Deviations General Gait Pattern Antalgic Decreased Stride Length Decreased Feet Clearance Wide Based Gait Factors Limiting Gait Function Factors Limiting Gait Function Decreased Activity Tolerance Decreased Strength Limited Range of Motion Pain Poor Balance Comments Gait Comments [place] R step length; increased WB on LLE (harder impact): WBOS Stair Climbing Evaluation Evaluation Level of Assist On Stairs Independent Technique/Endurance Stair Climbing Direction Ascend Stair Climbing Technique Step Over Step Step to Step Comments Stair Climbing Comments ascend= step over descend = step to PT-OP-J Posture/Palpation/Skin Start: 01/25/19 08:59 Freq: Status: Active Protocol: Document 01/25/19 08:15 HH (Rec: 01/25/19 09:38 HH [email or web address]) Posture Evaluation Position Standing Evaluation View Anterior Weight Distribution Weight Shifted Left Knee Posture (L) Ext. Tibial Torsion (R) Ext. Tibial Torsion (R) Excess Flexion Ankle/Foot Posture (L) Pronated (R) Pronated Palpation Assessment Location Medial knee joint line Palpation Findings Tenderness Palpation Details significant tenderness to touch and pressure and medial joint line PT-OP-K Range of Motion Start: 01/25/19 08:59 Freq: Status: Active Protocol: Document 01/25/19 08:15 HH (Rec: 01/25/19 09:38 [email or web address]) Knee Goniometric Range of Motion Knee Measured in Degrees Right Knee ROM WFL Yes Patient Position Supine Flexion Active (degrees) 120 Flexion Passive (degrees) 130 Extension Active (degrees) 7 Left Knee ROM WFL Yes Patient Position Supine Flexion Active (degrees) 130 Flexion Passive (degrees) 140 Extension Active (degrees) 2 PT-OP-L Special Tests Start: 01/25/19 08:59 Freq: Status: Active Protocol: Document 01/25/19 08:15 HH (Rec: 01/25/19 09:38 [email or web address]) Special Tests Knee Special Tests Apley's Compression Test Results -ve Faustino Test Test Results -ve Varus- 0 Degrees Test Results -ve Valgus- 25 Degrees Test Results +ve on R Varus- 25 Degrees Test Results +ve on R Valgus- 0 Degrees Test Results -ve PT-OP-M Strength Start: 01/25/19 08:59 Freq: Status: Active Protocol: Document 01/25/19 08:15 HH (Rec: 01/25/19 09:38 [email or web address]) Hip Strength Hip Manual Muscle Testing Right Flexion (L2) 5 Normal Extension (S1) 5 Normal Abduction 5 Normal Adduction 5 Normal Left Flexion (L2) 5 Normal Extension (S1) 4 Good Abduction 4 Good Adduction 4 Good Knee Strength Knee Manual Muscle Testing Right Flexion (S2) 4+ Good+ Extension (L3) 4+ Good+ Left Flexion (S2) 4- Good- Extension (L3) 4- Good- PT-OP-Q Treatments Start: 01/25/19 08:59 Freq: Status: Active Protocol: Document 02/22/19 08:15 HH (Rec: 02/22/19 11:31 [email or web address]) Cardio Equipment Recumbent Stepper (Sci-Fit) Duration (Minutes) 5 Resistance 5 Recumbent Bicycle Duration (Minutes) 5 Resistance 5 Gym Equipment Cable Column (Body Solid) unilateral knee ext Resistance 20# Reps/Time 10 secs hold x 5 reps x 2 sets B knee ext Resistance 40# Reps/Time 10 secs hold x 5 reps x 2 sets Shuttle Recovery bilateral squats (feet at center) Resistance 3 cords Shuttle Recovery Platform Stable Reps/Time 15 reps x 2 Therapeutic Exercises Standing Exercises single leg stance Side bilateral Reps/Minutes 10 x 2 sets Comments L: 5 seconds, R: 3-5 seconds iso wall squat Side bilateral Reps/Minutes 20 s x 2 Comments knee angle at 120-140 degrees standing lunges on table Side bilateral Reps/Minutes 10 x 2 Comments lunges on table, knee drives pass toes PT-OP-R Modalities Start: 01/25/19 08:59 Freq: Status: Active Protocol: Document 01/27/19 12:45 EA (Rec: 01/27/19 12:57 EA [email or web address]) Hot Pack/Cold Pack Treatment Cold Pack Patient Position Hooklying Treatment Duration (minutes) 15 Patient Tolerance Fair PT-OP-T Assessment and Plan Start: 01/25/19 08:59 Freq: Status: Active Protocol: Document 02/22/19 08:15 HH (Rec: 02/22/19 11:31 HH [email or web address]) Physical Therapy Assessment Goals transfers Impairment increased time for sit to stand and floor recovery Mcc Goal (LTG) Pt will be able to complete 5x STS in 10 seconds without UE support and recover from floor independently. 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 LTG Duration 8 weeks Stair climbing Impairment pt uses step to pattern for descend Operations Manager Goal (LTG) Pt will be able to descend with step over pattern safely and independently. LTG Duration 8 weeks LEFS Impairment low score= 25 (60-79% impairment) Mcc Goal (LTG) Pt will score 20-39% bracket to improve his overall functional mobility and quality of life such as pain free for sit to stand, standing >1 hour, walk >1 hour etc. LTG Duration 8 weeks Progress Towards Goals Progress Towards Goals Slow Progress due to Activity Tolerance Slow Progress due to Noncompliance Assessment Summary Assessment Pt has not been session for 2 weeks. Arron session okay today without major c/o increase in pain. He was able to arron longer without requesting for rest. Focused on iso strengthening of knee extensors with iso wall squat and cable knee extension. Pt felt good with forward lunge on table for ROM exercise. Physical Therapy Plan Next Visit Focus/Plan Next Note Type Treatment Note Next Visit Plan pain free range of LLE ISO strengthening <90-100 degrees bike/ eliptical ankle df, big toe df hip er, abductor stregnthening
--- NOTE | 2019-03-01 12:16 | PT.OTN ---
Current Diagnoses Unilateral primary osteoarthritis, unspecified knee (03/01/19) Physical Therapy Treatment Note PT-OP-A Visit Information Start: 01/25/19 08:59 Freq: Status: Active Protocol: Document 03/01/19 08:15 HH (Rec: 03/01/19 12:16 [email or web address]) Out-Patient Physical Therapy Visit Information Visit Information Visit Type Treatment Note Visit Start Time 08:15 Visit Stop Time 09:00 Total Visit Minutes 45 Visit Number 5 Number of MILLINERY DESIGNER Visits 0 PT-OP-B Current Condition Start: 01/25/19 08:59 Freq: Status: Active Protocol: Document 01/25/19 08:15 HH (Rec: 01/25/19 09:11 [email or web address]) Current Condition History of Current Condition Onset Date >10 years ago Current Complaints B knee pain, impaired gait, decreased activity tolerance History of Current Condition Pt presents to clinic with c/o chronic B knee pain due to OA more than 10 years ago. His pain got worse since 2016 and started to receive Hyaluronic acid injection for both knees 3 times every 5 months. He states it is very helpful to control his pain. Pt also partipated outpatient PT in [place] for overall strengthening and balance training but he was d/c early Oct, 2018. Pt's pain usually get worse with getting up from chair, getting up from floor, climbing ladder and descending from stairs. Pt used step over for ascend but step to pattern for decsend. He tends to feel better with ice and inactivity. 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 Prior Treatments and Tests Hyaluronic acid injection ( last shot in oct, 2018) Future Testing and Treatments Planned Hyaluronic acid injection Treatment Goals Patient/Caregiver Goals 1. To be able to get up and down from chair easier without discomfort 2. pain free for functional activities 3. use step over pattern for stair descending 4. Able to walk > 1mile without pain Prior Functional Status Baseline Function- ADL's Independent Baseline Function- Mobility Independent Current Functional Impairments (Reported) Functional Limitations- Mobility/Gait step to gait during stair descending Increased WB on LLE during gait PT-OP-C Subjective Start: 01/25/19 08:59 Freq: Status: Active Protocol: Document 03/01/19 08:15 HH (Rec: 03/01/19 12:16 [email or web address]) OP-PT Subjective Patient Comments Patient Comments Its been pretty good lately and doesnt hurt so much for my knees. Patient Reported Progress Improving PT-OP-D Balance Start: 01/25/19 08:59 Freq: Status: Active Protocol: Document 01/25/19 08:15 HH (Rec: 01/25/19 09:38 [email or web address]) OP-PT Balance Assessment Sitting Balance Static Sitting Balance Ability Normal Dynamic Sitting Balance Ability Normal Standing Balance Static Standing Balance Ability Normal Dynamic Standing Balance Ability Normal Balance Tests Single Limb Standing Single Limb- Right 13 Single Limb- Left 15 Tandem Tandem Standing 20 Other Other Balance Tests Performed Single leg stance with EC= 2 s tandem with EC = 2 s Howard Fall Scale Copyright Permission Anita HARO, Anita RM, Saulo SJ. Development of a scale to identify the fall- prone patient. Can J Aging 1989;8;366-7. Nikky Howard (2009). Preventing patient falls. (2nd ed). [place]: [place]. PT-OP-E Functional Tests Start: 01/25/19 08:59 Freq: Status: Active Protocol: Document 01/25/19 08:15 HH (Rec: 01/25/19 09:38 [email or web address]) Functional Tests Five Times Sit to Stand Test Score 14 PT-OP-G Mobility & Gait Start: 01/25/19 08:59 Freq: Status: Active Protocol: Document 01/25/19 08:15 HH (Rec: 01/25/19 09:38 [email or web address]) OP Gait Assessment Gait Gait Assistance Required: Independent Assistive Devices Assistive Device None Gait Deviations General Gait Pattern Antalgic Decreased Stride Length Decreased Feet Clearance Wide Based Gait Factors Limiting Gait Function Factors Limiting Gait Function Decreased Activity Tolerance Decreased Strength Limited Range of Motion Pain Poor Balance Comments Gait Comments [place] R step length; increased WB on LLE (harder impact): WBOS Stair Climbing Evaluation Evaluation Level of Assist On Stairs Independent Technique/Endurance Stair Climbing Direction Ascend Stair Climbing Technique Step Over Step Step to Step Comments Stair Climbing Comments ascend= step over descend = step to PT-OP-J Posture/Palpation/Skin Start: 01/25/19 08:59 Freq: Status: Active Protocol: Document 01/25/19 08:15 HH (Rec: 01/25/19 09:38 HH [email or web address]) Posture Evaluation Position Standing Evaluation View Anterior Weight Distribution Weight Shifted Left Knee Posture (L) Ext. Tibial Torsion (R) Ext. Tibial Torsion (R) Excess Flexion Ankle/Foot Posture (L) Pronated (R) Pronated Palpation Assessment Location Medial knee joint line Palpation Findings Tenderness Palpation Details significant tenderness to touch and pressure and medial joint line PT-OP-K Range of Motion Start: 01/25/19 08:59 Freq: Status: Active Protocol: Document 01/25/19 08:15 HH (Rec: 01/25/19 09:38 [email or web address]) Knee Goniometric Range of Motion Knee Measured in Degrees Right Knee ROM WFL Yes Patient Position Supine Flexion Active (degrees) 120 Flexion Passive (degrees) 130 Extension Active (degrees) 7 Left Knee ROM WFL Yes Patient Position Supine Flexion Active (degrees) 130 Flexion Passive (degrees) 140 Extension Active (degrees) 2 PT-OP-L Special Tests Start: 01/25/19 08:59 Freq: Status: Active Protocol: Document 01/25/19 08:15 HH (Rec: 01/25/19 09:38 [email or web address]) Special Tests Knee Special Tests Apley's Compression Test Results -ve Faustino Test Test Results -ve Varus- 0 Degrees Test Results -ve Valgus- 25 Degrees Test Results +ve on R Varus- 25 Degrees Test Results +ve on R Valgus- 0 Degrees Test Results -ve PT-OP-M Strength Start: 01/25/19 08:59 Freq: Status: Active Protocol: Document 01/25/19 08:15 HH (Rec: 01/25/19 09:38 [email or web address]) Hip Strength Hip Manual Muscle Testing Right Flexion (L2) 5 Normal Extension (S1) 5 Normal Abduction 5 Normal Adduction 5 Normal Left Flexion (L2) 5 Normal Extension (S1) 4 Good Abduction 4 Good Adduction 4 Good Knee Strength Knee Manual Muscle Testing Right Flexion (S2) 4+ Good+ Extension (L3) 4+ Good+ Left Flexion (S2) 4- Good- Extension (L3) 4- Good- PT-OP-Q Treatments Start: 01/25/19 08:59 Freq: Status: Active Protocol: Document 03/01/19 08:15 HH (Rec: 03/01/19 12:16 HH [email or web address]) Cardio Equipment Recumbent Stepper (Sci-Fit) Duration (Minutes) 5 Resistance 5 Recumbent Bicycle Duration (Minutes) 5 Resistance 5 Gym Equipment Cable Column (Body Solid) unilateral knee ext Resistance 30# Reps/Time 5 secs hold x 5 reps x 2 sets B knee ext Resistance 50# Reps/Time 5 secs hold x 5 reps x 2 sets Shuttle Recovery bilateral squats (feet at center) Details center Resistance 150# Shuttle Recovery Platform Stable Reps/Time 10 x2, heels push off Bilateral Squats Details pain free range (feet towards top of platform) Resistance 150# Shuttle Recovery Platform Stable Reps/Time 10 x2 forefoot push off Therapeutic Exercises Standing Exercises hurdles walk Side bilateral Equipment Used 5inch hurdles, Reps/Minutes 8 laps within //bar hurdles Side bilateral Equipment Used 5inch hurdles, green and blue foam Reps/Minutes 8 laps within //bar single leg stance Side bilateral Reps/Minutes 10 x 2 sets Comments L: 5 seconds, R: 3-5 seconds standing lunges on table Side bilateral Reps/Minutes 10 x 2 Comments lunges on table, knee drives pass toes PT-OP-R Modalities Start: 01/25/19 08:59 Freq: Status: Active Protocol: Document 01/27/19 12:45 EA (Rec: 01/27/19 12:57 EA [email or web address]) Hot Pack/Cold Pack Treatment Cold Pack Patient Position Hooklying Treatment Duration (minutes) 15 Patient Tolerance Fair PT-OP-T Assessment and Plan Start: 01/25/19 08:59 Freq: Status: Active Protocol: Document 03/01/19 08:15 HH (Rec: 03/01/19 12:16 HH [email or web address]) Physical Therapy Assessment Goals transfers Impairment increased time for sit to stand and floor recovery Long-Term Goal (LTG) Pt will be able to complete 5x STS in 10 seconds without UE support and recover from floor independently. 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 LTG Duration 8 weeks Stair climbing Impairment pt uses step to pattern for descend Long-Term Goal (LTG) Pt will be able to descend with step over pattern safely and independently. LTG Duration 8 weeks LEFS Impairment low score= 25 (60-79% impairment) Long-Term Goal (LTG) Pt will score 20-39% bracket to improve his overall functional mobility and quality of life such as pain free for sit to stand, standing >1 hour, walk >1 hour etc. LTG Duration 8 weeks Assessment Summary Assessment Pt progressed well over the past week. Able to reach 150# for leg press today, improved single leg balance for hurdles walk with decreased c/o. Physical Therapy Plan Next Visit Focus/Plan Next Note Type Treatment Note Next Visit Plan single leg strengthening and balance pain free range of LLE strengthening <90-100 degrees bike/ eliptical ankle df, big toe df hip er, abductor stregnthening
--- NOTE | 2019-03-08 12:11 | PT.OTN ---
Current Diagnoses Unilateral primary osteoarthritis, unspecified knee (03/08/19) Physical Therapy Treatment Note PT-OP-A Visit Information Start: 01/25/19 08:59 Freq: Status: Active Protocol: Document 03/08/19 08:15 HH (Rec: 03/08/19 12:10 [email or web address]) Out-Patient Physical Therapy Visit Information Visit Information Visit Type Treatment Note Visit Start Time 08:15 Visit Stop Time 09:00 Total Visit Minutes 45 Visit Number 6 Number of JAILER CHIEF Visits 0 PT-OP-B Current Condition Start: 01/25/19 08:59 Freq: Status: Active Protocol: Document 01/25/19 08:15 HH (Rec: 01/25/19 09:11 [email or web address]) Current Condition History of Current Condition Onset Date >10 years ago Current Complaints B knee pain, impaired gait, decreased activity tolerance History of Current Condition Pt presents to clinic with c/o chronic B knee pain due to OA more than 10 years ago. His pain got worse since 2016 and started to receive Hyaluronic acid injection for both knees 3 times every 5 months. He states it is very helpful to control his pain. Pt also partipated outpatient PT in [place] for overall strengthening and balance training but he was d/c early Oct, 2018. Pt's pain usually get worse with getting up from chair, getting up from floor, climbing ladder and descending from stairs. Pt used step over for ascend but step to pattern for decsend. He tends to feel better with ice and inactivity. 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 Prior Treatments and Tests Hyaluronic acid injection ( last shot in oct, 2018) Future Testing and Treatments Planned Hyaluronic acid injection Treatment Goals Patient/Caregiver Goals 1. To be able to get up and down from chair easier without discomfort 2. pain free for functional activities 3. use step over pattern for stair descending 4. Able to walk > 1mile without pain Prior Functional Status Baseline Function- ADL's Independent Baseline Function- Mobility Independent Current Functional Impairments (Reported) Functional Limitations- Mobility/Gait step to gait during stair descending Increased WB on LLE during gait PT-OP-C Subjective Start: 01/25/19 08:59 Freq: Status: Active Protocol: Document 03/08/19 08:15 HH (Rec: 03/08/19 12:10 [email or web address]) OP-PT Subjective Patient Comments Patient Comments Im a littel bit stiff after staying on the boat a lot last week. But overall less pain and getting better Patient Reported Progress Improving PT-OP-D Balance Start: 01/25/19 08:59 Freq: Status: Active Protocol: Document 01/25/19 08:15 HH (Rec: 01/25/19 09:38 [email or web address]) OP-PT Balance Assessment Sitting Balance Static Sitting Balance Ability Normal Dynamic Sitting Balance Ability Normal Standing Balance Static Standing Balance Ability Normal Dynamic Standing Balance Ability Normal Balance Tests Single Limb Standing Single Limb- Right 13 Single Limb- Left 15 Tandem Tandem Standing 20 Other Other Balance Tests Performed Single leg stance with EC= 2 s tandem with EC = 2 s Howard Fall Scale Copyright Permission PT-OP-E Functional Tests Start: 01/25/19 08:59 Freq: Status: Active Protocol: Document 01/25/19 08:15 HH (Rec: 01/25/19 09:38 [email or web address]) Functional Tests Five Times Sit to Stand Test Score 14 PT-OP-G Mobility & Gait Start: 01/25/19 08:59 Freq: Status: Active Protocol: Document 01/25/19 08:15 HH (Rec: 01/25/19 09:38 [email or web address]) OP Gait Assessment Gait Gait Assistance Required: Independent Assistive Devices Assistive Device None Gait Deviations General Gait Pattern Antalgic Decreased Stride Length Decreased Feet Clearance Wide Based Gait Factors Limiting Gait Function Factors Limiting Gait Function Decreased Activity Tolerance Decreased Strength Limited Range of Motion Pain Poor Balance Comments Gait Comments [place] R step length; increased WB on LLE (harder impact): WBOS Stair Climbing Evaluation Evaluation Level of Assist On Stairs Independent Technique/Endurance Stair Climbing Direction Ascend Stair Climbing Technique Step Over Step Step to Step Comments Stair Climbing Comments ascend= step over descend = step to PT-OP-J Posture/Palpation/Skin Start: 01/25/19 08:59 Freq: Status: Active Protocol: Document 01/25/19 08:15 HH (Rec: 01/25/19 09:38 [email or web address]) Posture Evaluation Position Standing Evaluation View Anterior Weight Distribution Weight Shifted Left Knee Posture (L) Ext. Tibial Torsion (R) Ext. Tibial Torsion (R) Excess Flexion Ankle/Foot Posture (L) Pronated (R) Pronated Palpation Assessment Location Medial knee joint line Palpation Findings Tenderness Palpation Details significant tenderness to touch and pressure and medial joint line PT-OP-K Range of Motion Start: 01/25/19 08:59 Freq: Status: Active Protocol: Document 01/25/19 08:15 HH (Rec: 01/25/19 09:38 HH [email or web address]) Knee Goniometric Range of Motion Knee Right Knee ROM WFL Yes Patient Position Supine Flexion Active (degrees) 120 Flexion Passive (degrees) 130 Extension Active (degrees) 7 Left Knee ROM WFL Yes Patient Position Supine Flexion Active (degrees) 130 Flexion Passive (degrees) 140 Extension Active (degrees) 2 PT-OP-L Special Tests Start: 01/25/19 08:59 Freq: Status: Active Protocol: Document 01/25/19 08:15 HH (Rec: 01/25/19 09:38 [email or web address]) Special Tests Knee Special Tests Apley's Compression Test Results -ve Faustino Test Test Results -ve Varus- 0 Degrees Test Results -ve Valgus- 25 Degrees Test Results +ve on R Varus- 25 Degrees Test Results +ve on R Valgus- 0 Degrees Test Results -ve PT-OP-M Strength Start: 01/25/19 08:59 Freq: Status: Active Protocol: Document 01/25/19 08:15 HH (Rec: 01/25/19 09:38 [email or web address]) Hip Strength Hip Manual Muscle Testing Right Flexion (L2) 5 Normal Extension (S1) 5 Normal Abduction 5 Normal Adduction 5 Normal Left Flexion (L2) 5 Normal Extension (S1) 4 Good Abduction 4 Good Adduction 4 Good Knee Strength Knee Manual Muscle Testing Right Flexion (S2) 4+ Good+ Extension (L3) 4+ Good+ Left Flexion (S2) 4- Good- Extension (L3) 4- Good- PT-OP-Q Treatments Start: 01/25/19 08:59 Freq: Status: Active Protocol: Document 03/08/19 08:15 HH (Rec: 03/08/19 12:10 HH [email or web address]) Cardio Equipment Recumbent Stepper (Sci-Fit) Duration (Minutes) 8 Resistance 5 Recumbent Bicycle Duration (Minutes) 5 Resistance 5 Bicycle (Upright) Duration (Minutes) 5 Resistance 8 Gym Equipment Shuttle Recovery bilateral squats (feet at center) Details center Resistance 187# Shuttle Recovery Platform Stable Reps/Time 10 x2, heels push off Bilateral Squats Details pain free range (feet towards top of platform) Resistance 187# Shuttle Recovery Platform Stable Reps/Time 10 x2 forefoot push off Therapeutic Exercises Standing Exercises calf raise Side bilateral Equipment Used on stair Reps/Minutes 8 x2 Comments full range hurdles walk Side bilateral Equipment Used 5inch hurdles, Reps/Minutes 5 laps Comments center of the room, no UE support hurdles Standing Exercise Name side step Side bilateral Equipment Used 5inch hurdles, green and blue foam Reps/Minutes 5 laps Comments center of the room, no UE support single leg stance Side bilateral Reps/Minutes 10 x 2 sets Comments L: 5 seconds, R: 5 seconds standing lunges on table Side bilateral Reps/Minutes 10 x 2 Comments lunges on table, knee drives pass toes Self-Care/Home Management Treatment Education Patient Education Pain Management Other Education education on injection need for pain management PT-OP-R Modalities Start: 01/25/19 08:59 Freq: Status: Active Protocol: Document 01/27/19 12:45 EA (Rec: 01/27/19 12:57 EA [id number]) Hot Pack/Cold Pack Treatment Cold Pack Patient Position Hooklying Treatment Duration (minutes) 15 Patient Tolerance Fair PT-OP-T Assessment and Plan Start: 01/25/19 08:59 Freq: Status: Active Protocol: Document 03/08/19 08:15 HH (Rec: 03/08/19 12:10 HH [email or web address]) Physical Therapy Assessment Goals transfers Impairment increased time for sit to stand and floor recovery Entomology Teacher Goal (LTG) Pt will be able to complete 5x STS in 10 seconds without UE support and recover from floor independently. 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 LTG Duration 8 weeks Stair climbing Impairment pt uses step to pattern for descend Entomology Teacher Goal (LTG) Pt will be able to descend with step over pattern safely and independently. LTG Duration 8 weeks LEFS Impairment low score= 25 (60-79% impairment) Entomology Teacher Goal (LTG) Pt will score 20-39% bracket to improve his overall functional mobility and quality of life such as pain free for sit to stand, standing >1 hour, walk >1 hour etc. LTG Duration 8 weeks Assessment Summary Assessment Pt cont progress with improve B LE strength up to #187 for leg press. Improved single leg balance today who is able to perform hurdles in the middle of the open area without support. Educated to put steroid injection for B knee pain since he has been improving. Physical Therapy Plan Next Visit Focus/Plan Next Note Type Treatment Note Next Visit Plan single leg strengthening and balance pain free range of LLE strengthening <90-100 degrees bike/ eliptical ankle df, big toe df hip er, abductor stregnthening
--- NOTE | 2019-03-15 10:31 | PT.OTN ---
Current Diagnoses Unilateral primary osteoarthritis, unspecified knee (03/15/19) Physical Therapy Treatment Note PT-OP-A Visit Information Start: 01/25/19 08:59 Freq: Status: Active Protocol: Document 03/15/19 08:58 EA (Rec: 03/15/19 09:04 EA [id number]) Out-Patient Physical Therapy Visit Information Visit Information Visit Type Treatment Note Visit Start Time 08:30 Visit Stop Time 09:10 Total Visit Minutes 40 Visit Number 7 Number of TESTER ROCKET ENGINE Visits 0 PT-OP-B Current Condition Start: 01/25/19 08:59 Freq: Status: Active Protocol: Document 01/25/19 08:15 HH (Rec: 01/25/19 09:11 HH [email or web address]) Current Condition History of Current Condition Onset Date >10 years ago Current Complaints B knee pain, impaired gait, decreased activity tolerance History of Current Condition Pt presents to clinic with c/o chronic B knee pain due to OA more than 10 years ago. His pain got worse since 2016 and started to receive Hyaluronic acid injection for both knees 3 times every 5 months. He states it is very helpful to control his pain. Pt also partipated outpatient PT in [place] for overall strengthening and balance training but he was d/c early Oct, 2018. Pt's pain usually get worse with getting up from chair, getting up from floor, climbing ladder and descending from stairs. Pt used step over for ascend but step to pattern for decsend. He tends to feel better with ice and inactivity. 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 Prior Treatments and Tests Hyaluronic acid injection ( last shot in oct, 2018) Future Testing and Treatments Planned Hyaluronic acid injection Treatment Goals Patient/Caregiver Goals 1. To be able to get up and down from chair easier without discomfort 2. pain free for functional activities 3. use step over pattern for stair descending 4. Able to walk > 1mile without pain Prior Functional Status Baseline Function- ADL's Independent Baseline Function- Mobility Independent Current Functional Impairments (Reported) Functional Limitations- Mobility/Gait step to gait during stair descending Increased WB on LLE during gait PT-OP-C Subjective Start: 01/25/19 08:59 Freq: Status: Active Protocol: Document 03/15/19 08:58 EA (Rec: 03/15/19 09:04 EA [id number]) OP-PT Subjective Patient Comments Patient Comments Pt reports able to work on his knees; states feels injection and PT is working. Patient Reported Progress Improving PT-OP-D Balance Start: 01/25/19 08:59 Freq: Status: Active Protocol: Document 01/25/19 08:15 HH (Rec: 01/25/19 09:38 [email or web address]) OP-PT Balance Assessment Sitting Balance Static Sitting Balance Ability Normal Dynamic Sitting Balance Ability Normal Standing Balance Static Standing Balance Ability Normal Dynamic Standing Balance Ability Normal Balance Tests Single Limb Standing Single Limb- Right 13 Single Limb- Left 15 Tandem Tandem Standing 20 Other Other Balance Tests Performed Single leg stance with EC= 2 s tandem with EC = 2 s Howard Fall Scale Copyright Permission PT-OP-E Functional Tests Start: 01/25/19 08:59 Freq: Status: Active Protocol: Document 01/25/19 08:15 HH (Rec: 01/25/19 09:38 [email or web address]) Functional Tests Five Times Sit to Stand Test Score 14 PT-OP-G Mobility & Gait Start: 01/25/19 08:59 Freq: Status: Active Protocol: Document 01/25/19 08:15 HH (Rec: 01/25/19 09:38 [email or web address]) OP Gait Assessment Gait Gait Assistance Required: Independent Assistive Devices Assistive Device None Gait Deviations General Gait Pattern Antalgic Decreased Stride Length Decreased Feet Clearance Wide Based Gait Factors Limiting Gait Function Factors Limiting Gait Function Decreased Activity Tolerance Decreased Strength Limited Range of Motion Pain Poor Balance Comments Gait Comments [place] R step length; increased WB on LLE (harder impact): WBOS Stair Climbing Evaluation Evaluation Level of Assist On Stairs Independent Technique/Endurance Stair Climbing Direction Ascend Stair Climbing Technique Step Over Step Step to Step Comments Stair Climbing Comments ascend= step over descend = step to PT-OP-J Posture/Palpation/Skin Start: 01/25/19 08:59 Freq: Status: Active Protocol: Document 01/25/19 08:15 HH (Rec: 01/25/19 09:38 [email or web address]) Posture Evaluation Position Standing Evaluation View Anterior Weight Distribution Weight Shifted Left Knee Posture (L) Ext. Tibial Torsion (R) Ext. Tibial Torsion (R) Excess Flexion Ankle/Foot Posture (L) Pronated (R) Pronated Palpation Assessment Location Medial knee joint line Palpation Findings Tenderness Palpation Details significant tenderness to touch and pressure and medial joint line PT-OP-K Range of Motion Start: 01/25/19 08:59 Freq: Status: Active Protocol: Document 01/25/19 08:15 HH (Rec: 01/25/19 09:38 HH [email or web address]) Knee Goniometric Range of Motion Knee Right Knee ROM WFL Yes Patient Position Supine Flexion Active (degrees) 120 Flexion Passive (degrees) 130 Extension Active (degrees) 7 Left Knee ROM WFL Yes Patient Position Supine Flexion Active (degrees) 130 Flexion Passive (degrees) 140 Extension Active (degrees) 2 PT-OP-L Special Tests Start: 01/25/19 08:59 Freq: Status: Active Protocol: Document 01/25/19 08:15 HH (Rec: 01/25/19 09:38 HH [email or web address]) Special Tests Knee Special Tests Apley's Compression Test Results -ve Faustino Test Test Results -ve Varus- 0 Degrees Test Results -ve Valgus- 25 Degrees Test Results +ve on R Varus- 25 Degrees Test Results +ve on R Valgus- 0 Degrees Test Results -ve PT-OP-M Strength Start: 01/25/19 08:59 Freq: Status: Active Protocol: Document 01/25/19 08:15 HH (Rec: 01/25/19 09:38 HH [email or web address]) Hip Strength Hip Manual Muscle Testing Right Flexion (L2) 5 Normal Extension (S1) 5 Normal Abduction 5 Normal Adduction 5 Normal Left Flexion (L2) 5 Normal Extension (S1) 4 Good Abduction 4 Good Adduction 4 Good Knee Strength Knee Manual Muscle Testing Right Flexion (S2) 4+ Good+ Extension (L3) 4+ Good+ Left Flexion (S2) 4- Good- Extension (L3) 4- Good- PT-OP-Q Treatments Start: 01/25/19 08:59 Freq: Status: Active Protocol: Document 03/15/19 08:58 EA (Rec: 03/15/19 09:04 EA [id number]) Cardio Equipment Recumbent Bicycle Duration (Minutes) 5 Resistance 5 Gym Equipment Cable Column (Body Solid) unilateral knee ext Resistance 75# Reps/Time 5 secs hold x 5 reps x 2 sets B knee ext Resistance 50# Reps/Time 5 secs hold x 5 reps x 2 sets Shuttle Recovery Bilateral Heel Raises Resistance 75# Reps/Time 15 reps x 2 bilateral squats (feet at center) Details center Resistance 175# Shuttle Recovery Platform Stable Reps/Time 10 x2, heels push off Therapeutic Exercises Supine Exercises hip ER and tibial IR Side bilateral 1 Supine Exercise Name Ham[place]ring and quads stretch Reps/Minutes x 15SH x 2 reps Standing Exercises hurdles Standing Exercise Name side step Side bilateral Equipment Used 5inch hurdles, green and blue foam Reps/Minutes 5 laps Comments center of the room, no UE support single leg stance Side bilateral Reps/Minutes 10 x 2 sets Comments L: 5 seconds, R: 5 seconds standing lunges on table Side bilateral Reps/Minutes 10 x 2 Comments lunges on table, knee drives pass toes PT-OP-R Modalities Start: 01/25/19 08:59 Freq: Status: Active Protocol: Document 03/15/19 08:58 EA (Rec: 03/15/19 09:04 EA [email or web address]) Hot Pack/Cold Pack Treatment Cold Pack Location both knees and left ankle Patient Position Hooklying Treatment Duration (minutes) 15 Patient Tolerance Fair PT-OP-T Assessment and Plan Start: 01/25/19 08:59 Freq: Status: Active Protocol: Document 03/15/19 08:58 EA (Rec: 03/15/19 09:04 EA [id number]) Physical Therapy Assessment Assessment Summary Assessment Tolerated treatment well. Physical Therapy Plan Next Visit Focus/Plan Next Note Type Treatment Note Next Visit Plan single leg strengthening and balance pain free range of LLE strengthening <90-100 degrees bike/ eliptical ankle df, big toe df hip er, abductor stregnthening
--- NOTE | 2019-05-10 14:13 | PT.OPDS ---
Current Diagnoses Unilateral primary osteoarthritis, unspecified knee (03/15/19) Provider Visit Care Team Role Provider Type Alva Rogers MD Primary Care Provider Non-Staff Specialty: Medical Address: [place], [address] Email: Nelson Thomas MD Attending Provider Physician Specialty: Orthopedic Surgery Address: [address] [place] [address], [id number] Email: [email or web address] Visit Number Visit Number 7 Discharge Summary PT-OP-B Current Condition Start: 01/25/19 08:59 Freq: Status: Active Protocol: Document 01/25/19 08:15 HH (Rec: 01/25/19 09:11 [email or web address]) Current Condition History of Current Condition Onset Date >10 years ago Current Complaints B knee pain, impaired gait, decreased activity tolerance History of Current Condition Pt presents to clinic with c/o chronic B knee pain due to OA more than 10 years ago. His pain got worse since 2016 and started to receive Hyaluronic acid injection for both knees 3 times every 5 months. He states it is very helpful to control his pain. Pt also partipated outpatient PT in [place] for overall strengthening and balance training but he was d/c early Oct, 2018. Pt's pain usually get worse with getting up from chair, getting up from floor, climbing ladder and descending from stairs. Pt used step over for ascend but step to pattern for decsend. He tends to feel better with ice and inactivity. 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 Prior Treatments and Tests Hyaluronic acid injection ( last shot in oct, 2018) Future Testing and Treatments Planned Hyaluronic acid injection Treatment Goals Patient/Caregiver Goals 1. To be able to get up and down from chair easier without discomfort 2. pain free for functional activities 3. use step over pattern for stair descending 4. Able to walk > 1mile without pain Prior Functional Status Baseline Function- ADL's Independent Baseline Function- Mobility Independent Current Functional Impairments (Reported) Functional Limitations- Mobility/Gait step to gait during stair descending Increased WB on LLE during gait PT-OP-C Subjective Start: 01/25/19 08:59 Freq: Status: Active Protocol: Document 03/15/19 08:58 EA (Rec: 03/15/19 09:04 EA [email or web address]) OP-PT Subjective Patient Comments Patient Comments Pt reports able to work on his knees; states feels injection and PT is working. Patient Reported Progress Improving PT-OP-D Balance Start: 01/25/19 08:59 Freq: Status: Active Protocol: Document 01/25/19 08:15 HH (Rec: 01/25/19 09:38 HH [email or web address]) OP-PT Balance Assessment Sitting Balance Static Sitting Balance Ability Normal Dynamic Sitting Balance Ability Normal Standing Balance Static Standing Balance Ability Normal Dynamic Standing Balance Ability Normal Balance Tests Single Limb Standing Single Limb- Right 13 Single Limb- Left 15 Tandem Tandem Standing 20 Other Other Balance Tests Performed Single leg stance with EC= 2 s tandem with EC = 2 s Howard Fall Scale Copyright Permission PT-OP-E Functional Tests Start: 01/25/19 08:59 Freq: Status: Active Protocol: Document 01/25/19 08:15 HH (Rec: 01/25/19 09:38 HH [email or web address]) Functional Tests Five Times Sit to Stand Test Score 14 PT-OP-G Mobility & Gait Start: 01/25/19 08:59 Freq: Status: Active Protocol: Document 01/25/19 08:15 HH (Rec: 01/25/19 09:38 HH [email or web address]) OP Gait Assessment Gait Gait Assistance Required: Independent Assistive Devices Assistive Device None Gait Deviations General Gait Pattern Antalgic Decreased Stride Length Decreased Feet Clearance Wide Based Gait Factors Limiting Gait Function Factors Limiting Gait Function Decreased Activity Tolerance Decreased Strength Limited Range of Motion Pain Poor Balance Comments Gait Comments [place] R step length; increased WB on LLE (harder impact): WBOS Stair Climbing Evaluation Evaluation Level of Assist On Stairs Independent Technique/Endurance Stair Climbing Direction Ascend Stair Climbing Technique Step Over Step Step to Step Comments Stair Climbing Comments ascend= step over descend = step to PT-OP-J Posture/Palpation/Skin Start: 01/25/19 08:59 Freq: Status: Active Protocol: Document 01/25/19 08:15 HH (Rec: 01/25/19 09:38 HH [email or web address]) Posture Evaluation Position Standing Evaluation View Anterior Weight Distribution Weight Shifted Left Knee Posture (L) Ext. Tibial Torsion (R) Ext. Tibial Torsion (R) Excess Flexion Ankle/Foot Posture (L) Pronated (R) Pronated Palpation Assessment Location Medial knee joint line Palpation Findings Tenderness Palpation Details significant tenderness to touch and pressure and medial joint line PT-OP-K Range of Motion Start: 01/25/19 08:59 Freq: Status: Active Protocol: Document 01/25/19 08:15 HH (Rec: 01/25/19 09:38 [email or web address]) Knee Goniometric Range of Motion Knee Right Knee ROM WFL Yes Patient Position Supine Flexion Active (degrees) 120 Flexion Passive (degrees) 130 Extension Active (degrees) 7 Left Knee ROM WFL Yes Patient Position Supine Flexion Active (degrees) 130 Flexion Passive (degrees) 140 Extension Active (degrees) 2 PT-OP-L Special Tests Start: 01/25/19 08:59 Freq: Status: Active Protocol: Document 01/25/19 08:15 HH (Rec: 01/25/19 09:38 [email or web address]) Special Tests Knee Special Tests Apley's Compression Test Results -ve Faustino Test Test Results -ve Varus- 0 Degrees Test Results -ve Valgus- 25 Degrees Test Results +ve on R Varus- 25 Degrees Test Results +ve on R Valgus- 0 Degrees Test Results -ve PT-OP-M Strength Start: 01/25/19 08:59 Freq: Status: Active Protocol: Document 01/25/19 08:15 HH (Rec: 01/25/19 09:38 [email or web address]) Hip Strength Hip Manual Muscle Testing Right Flexion (L2) 5 Normal Extension (S1) 5 Normal Abduction 5 Normal Adduction 5 Normal Left Flexion (L2) 5 Normal Extension (S1) 4 Good Abduction 4 Good Adduction 4 Good Knee Strength Knee Manual Muscle Testing Right Flexion (S2) 4+ Good+ Extension (L3) 4+ Good+ Left Flexion (S2) 4- Good- Extension (L3) 4- Good- PT-OP-T Assessment and Plan Start: 01/25/19 08:59 Freq: Status: Active Protocol: Document 05/10/19 14:11 HH (Rec: 05/10/19 14:13 [email or web address]) Physical Therapy Plan Discharge Physical Therapy Discharge Reasons No Longer Attending PT Discharge Comments Pt has not attended PT since late February but he was progressing very well and returned to [facility]. Attempted to reach out to pt regarding D/C but unsuccessful. D/C from PT today.
== END 2019-05-13 11:08 | disposition home or self-care (01) ==
LOC: PHYS 08:15
PROVIDERS: PCP Family Medicine; Visit Provider Orthopaedic Surgery
DX: M17.10 Unilateral primary osteoarthritis, unspecified knee (principal)
CPT/HCPCS: 97010; 97110; 97140; 97162; 97535

== ENCOUNTER 2019-04-28 17:19 | Emergency (ER) | payer OTHER, MEDICAID, SELFPAY ==
[2019-04-28 17:34] VITALS: BP 164/101; PULSE 90; RESP 20; TEMP 37.3; O2SAT 97; BMI 37.2
[2019-04-28 18:16] LABS: Add Manual Diff / Slide Review NO; Basophils Absolute Auto 100 /uL (0-100); Basophils Percent Auto 0.7 % (0-2); Eosinophils Absolute Auto 200 /uL (0-450); Eosinophils Percent Auto 2.6 % (2-4); Hematocrit 40.7 % (41-53); Lymphocytes Absolute Auto 1500 /uL (1100-4500); Lymphocytes Percent Auto 18.2 % (25-40); Mean Corpuscular HGB Conc 34.4 % (30-36); Mean Corpuscular Volume 90.2 fL (80-100); Monocytes Absolute Auto 800 /uL (0-900); Neutrophils Absolute Auto 5800 /uL (1500-7000); Neutrophils Percent Auto 68.5 % (50-75); Platelet Count 226 X10^3/uL (150-400); Red Blood Cell Count 4.51 X10^6/uL (4.5-5.9); Red Cell Distribution Width 13.3 % (11.6-14.8); White Blood Cell Count 8.5 X10^3/uL (4.5-11.0)
[2019-04-28 18:21] LABS: Prothrombin Time 11.6 SECONDS (10.1-12.7)
[2019-04-28 18:23] LABS: Alanine Aminotransferase 67 IU/L (21-72); Albumin 4.4 g/dL (3.5-5.0); Albumin Globulin Ratio 1.2 (1.0-2.8); Alkaline Phosphatase 46 U/L (38-126); Aspartate Aminotransferase 42 IU/L (17-59); BUN Creatinine Ratio 17.1 (6-22); Bilirubin Total 0.5 mg/dL (0.2-1.3); Blood Urea Nitrogen 12 mg/dL (9-20); Calcium 9.5 mg/dL (8.4-10.2); Carbon Dioxide 27 mmol/L (22-32); Chloride 100 mmol/L (98-107); Estimated Glomerular Filt Rate > 60.0 mL/min (>60); Globulin 3.6 g/dL (1.7-4.1); Glucose 102 mg/dL (80-110); HEMOLYSIS < 15 (0-50); Lipase 106 U/L (23-300); Potassium 4.4 mmol/L (3.4-5.1); Sodium 136 mmol/L (137-145)
[2019-04-28 18:24] LABS: PTT Partial Thromboplastin Tim 29 SECONDS (26.4-36.2)
--- NOTE | 2019-04-28 19:22 | ED_ITS ---
HPI - Abdominal Pain General Chief Complaint: Abdominal Pain Stated Complaint: stomach pain Time Seen by Provider: 04/28/19 19:17 Source: patient Mode of arrival: ambulatory Limitations: no limitations History of Present Illness HPI narrative: 63-year-old male here for evaluation of left lower quadrant abdominal pain. Patient states that has been going on for the past couple days but is really worsened over the past several hours. He states that it is left lower quadrant and suprapubic. He states that it has episodes where it becomes more intense with a cramping sensation in then seems to ease off somewhat. No urinary symptoms. No change in bowel movements. No diarrhea. No vomiting. He states he has had diverticulitis in the past but that was approximately 15 years ago. He states this feels somewhat like that. Has had some subjective low- grade fevers. Has not tried anything for symptoms prior to arrival patient also states that he has had a cough for approximately 1 week which seems to make his symptoms worse. Related Data Home Medications Medication Instructions Recorded Confirmed albuterol sulfate [Proventil HFA] 1 puff INH PRN PRN #0 10/19/17 05/26/18 lisinopril 20 mg PO DAILY #0 10/19/17 04/28/19 gabapentin 800 mg PO TID 05/26/18 04/28/19 fluticasone propionate 1 spray INTRANASAL DAILY PRN 04/28/19 04/28/19 meloxicam 15 mg PO DAILY 04/28/19 04/28/19 Previous Rx's Medication Instructions Recorded ipratropium-albuterol [Combivent 1 puff INHALATION Q6H #4 gram 05/26/18 Respimat] ciprofloxacin HCl 500 mg PO BID 10 Days #20 tab 04/28/19 metronidazole [Flagyl] 500 mg PO TID 10 Days #30 tab 04/28/19 Allergies Allergy/AdvReac Type Severity Reaction Status Date / Time Opioids - Morphine Analogues Allergy Intermediate Unverified 12/30/17 12:50 [OPIOIDS - MORPHINE ANALOGUES] tramadol [TRAMADOL] Allergy Intermediate Unverified 12/30/17 12:50 Review of Systems Constitutional Reports fever(s) Cardiovascular Denies chest pain and Denies dyspnea Respiratory Reports cough and Denies dyspnea Gastrointestinal Gastrointestinal: Reports abdominal pain, Denies change in stool character, Reports nausea and Denies vomiting Genitourinary Denies dysuria Musculoskeletal Denies myalgias and Denies arthralgias Integumentary/Breasts Denies lesions, Denies new lesions and Denies rash Neurologic Denies behavioral changes Psychiatric Denies behavioral changes Hematologic/Lymphatic Denies easy bleeding and Denies easy bruising Allergic/Immunologic Denies urticaria [facility] Medical History (Updated 04/29/19 @ 02:34 by Jose Espinoza DO) Flu (Resolved) Pneumonia (Resolved) Pulmonary nodule (Acute) Diverticulitis (Acute) Asthma with exacerbation (Inactive) Surgical History (Updated 06/02/18 @ 18:24 by Tiff Amaral MD) No pertinent past surgical history (Acute) Social History Smoking Status: Former smoker Social History Smoking Status: Former smoker Exam Initial Vital Signs Initial Vital Signs: Vital Signs Temperature 99.1 F 04/28/19 17:34 Pulse Rate 90 04/28/19 17:34 Respiratory Rate 20 04/28/19 17:34 Blood Pressure 164/101 H 04/28/19 17:34 Pulse Oximetry 97 04/28/19 17:34 Const General: cooperative, well developed, well groomed and No acute distress Orientation: alert and awake HENTN Head: normal to inspection and normocephalic Resp Effort & Inspection: normal respiratory effort Auscultation: clear to auscultation bilaterally Cardio Rate: regular rate Rhythm: regular rhythm GI Inspection: non-distended Palpation: soft, No firm and tender (Left lower quadrant suprapubic) Back/Spine/Pelvis Back: No CVA tenderness Skin Lesions: no lesions Rashes: no rashes Neuro General: alert and awake Cognition: normal cognition Speech: speech normal Extrem General: normal to inspection and capillary refill normal Psych Appearance: grossly normal and well kempt Course Orders Ordered: ED Orders 04/28/19 18:00 Complete Blood Count AUTO DIFF Stat Comprehensive Metabolic Panel Stat Lipase Stat Partial Thromboplastin Time Stat Prothrombin Time INR Stat 04/28/19 19:23 CT abdomen pelvis w con Stat XR chest 1V Stat Discontinued Medications Sodium Chloride (Normal Saline 0.9%) 1,000 mls @ 1,000 mls/hr IV BOLUS ONE Stop: 04/28/19 20:21 Last Infusion: 04/28/19 21:34 Dose: 0 mls/hr Admin: 04/28/19 20:12 Dose: 1,000 mls/hr Ceftriaxone Sodium/Dextrose (Rocephin) 2 gm in 50 mls @ 100 mls/hr IV NOW ONE Stop: 04/28/19 20:57 Last Infusion: 04/28/19 21:15 Dose: 0 mls/hr Admin: 04/28/19 20:42 Dose: 100 mls/hr Vital Signs - 8 hr 04/28/19 21:44 Pulse Rate 99 H Blood Pressure 161/92 H Pulse Oximetry 97 MDM - Abdominal Pain Lab Data Attestation: I reviewed the patient's lab results. Result diagrams: 04/28/19 18:00 04/28/19 18:00 Lab Results 04/28/19 04/28/19 04/28/19 Range/Units 18:00 18:00 18:00 WBC 8.5 (4.5-11.0) X10^3/uL RBC 4.51 (4.5-5.9) X10^6/uL Hgb 14.0 (13.5-17.5) g/dL Hct 40.7 L (41-53) % MCV 90.2 (80-100) fL MCH 31.0 (26-34) PG MCHC 34.4 (30-36) % RDW 13.3 (11.6-14.8) % Plt Count 226 (150-400) X10^3/uL Neut % (Auto) 68.5 (50-75) % Lymph % (Auto) 18.2 L (25-40) % [place] % (Auto) 10.0 (3-14) % Eos % (Auto) 2.6 (2-4) % Baso % (Auto) 0.7 (0-2) % Neut # (Auto) 5800 (5022-9883) /uL Lymph # (Auto) 1500 (1456-2558) /uL [place] # (Auto) 800 (0-900) /uL Eos # (Auto) 200 (0-450) /uL Baso # (Auto) 100 (0-100) /uL PT 11.6 (10.1-12.7) SECONDS INR 1.0 (0.9-1.3) APTT 29 (26.4-36.2) SECONDS Sodium 136 L (137-145) mmol/L Potassium 4.4 (3.4-5.1) mmol/L Chloride 100 (98-107) mmol/L Carbon Dioxide 27 (22-32) mmol/L BUN 12 (9-20) mg/dL Creatinine 0.70 (0.66-1.25) mg/dL Estimated GFR > 60.0 (>60) mL/min BUN/Creatinine Ratio 17.1 (6-22) Glucose 102 (80-110) mg/dL Calcium 9.5 (8.4-10.2) mg/dL Total Bilirubin 0.5 (0.2-1.3) mg/dL AST 42 (17-59) IU/L ALT 67 (21-72) IU/L Alkaline Phosphatase 46 (38-126) U/L Total Protein 8.0 (6.3-8.2) g/dL Albumin 4.4 (3.5-5.0) g/dL Globulin 3.6 (1.7-4.1) g/dL Albumin/Globulin Ratio 1.2 (1.0-2.8) Lipase 106 (23-300) U/L Point of care testing: Urine Dip Bedside Urine Glucose Negative Bedside Urine Bilirubin - Negative Bedside Urine Ketone +/- 5 Urine Specific [place] 1.010 Bedside Urine Occult Blood - Negative Bedside Urine pH 6.5 Bedside Urine Protein +/- 15 Bedside Urine Urobilinogen +/- 1mg Bedside Urine Nitrite - Negative Bedside Urine Leukocytes - Negative Esterase Imaging Data Chest x-ray: Radiologist's impression: [address] [address] XRay Report Signed Patient: oLnnie Finch [facility]#: [id number] : 5Acct:[id number] Age/Sex: 63 / MDate of Service: 04/28/19 Loc: ED Accession Number: [id number] Procedure: XR chest 1V Ordering Provider: Jose Espinoza D.O. PROCEDURE: XR CHEST 1V INDICATIONS: cough TECHNIQUE: One view of the chest was acquired. COMPARISON: [facility], CR, XR CHEST 1V, 05/26/2018, 17:22. FINDINGS: Surgical changes and devices: None. Lungs and pleura: Lungs are clear. No pleural effusions or pneumothorax. Mediastinum: Mediastinal contours appear normal. Heart size is normal. Bones and chest wall: No suspicious bony lesions. Overlying soft tissues appear unremarkable. IMPRESSION: No acute cardiopulmonary process. Dictated by: Edgardo Toledo M.D. on 04/28/2019 at 19:44 Approved by: Edgardo Toledo M.D. on 04/28/2019 at 19:45 CT scan - abdomen: Radiologist's impression: Lonnie Finch 63 M [address] [place] [address] CT Scan Report Signed Patient: Lonnie Finch [facility]#: [id number] : 5Acct:[id number] Age/Sex: 63 / MDate of Service: 04/28/19 Loc: ED Accession Number: [id number] Procedure: CT abdomen pelvis w con Ordering Provider: Jose Espinoza D.O. PROCEDURE: CT ABDOMEN PELVIS W CON INDICATIONS: Left-sided abdominal pain TECHNIQUE: After the administration of intravenous contrast, 5 mm thick sections acquired from the diaphragm to the symphysis. 5 mm coronal and sagittal reformats were acquired. For radiation dose reduction, the following was used: automated exposure control, adjustment of mA and/or kV according to patient size. COMPARISON: None. FINDINGS: Image quality: Excellent. ABDOMEN: Lung bases: Mild bibasilar atelectasis. Heart size is normal. Solid organs: Liver is normal in size and enhancement. Gallbladder is decompressed and otherwise unremarkable. Biliary system is non dilated. Pancreas enhances normally. Spleen is normal in size and enhancement. No adrenal nodules. Kidneys demonstrate normal size and enhancement, without hydronephrosis. There are a few peripelvic left renal cysts. Peritoneum and bowel: Scattered colonic diverticula disease with moderate peridiverticular inflammatory changes involving the distal descending colon and proximal sigmoid colon. Findings are most pronounced in the sigmoid colon. There is suggestion of contained microperforation of the antimesenteric side of the sigmoid colon best seen on axial image 69, series 2. No evidence for abscess formation. No evidence for bowel obstruction. Bowel loops demonstrate normal wall thickness and caliber. No free fluid or air. Nodes and vessels: No retroperitoneal or mesenteric adenopathy by size criteria. Aorta and inferior vena cava are normal in size. Miscellaneous: Small fat containing umbilical hernia without acute inflammation. PELVIS: Genitourinary: Bladder wall thickness is normal. Miscellaneous: No pelvic adenopathy. Bilateral fat-containing inguinal hernias. Bones: No suspicious bony lesions. No acute vertebral body compression fractures. Multilevel spondylosis of the imaged spine. IMPRESSION: 1. Colonic diverticulosis with moderate acute diverticulitis involving the distal descending colon and proximal sigmoid colon with suggestion of contained microperforation of the sigmoid colon. No evidence for abscess formation. 2. Other chronic findings as above. Findings were discussed with Dr. Espinoza of the emergency department staff at 2007 hrs. Dictated by: Edgardo Toledo M.D. on 04/28/2019 at 20:01 Approved by: Edgardo Toledo M.D. on 04/28/2019 at 20:10 [facility] Narrative Medical decision making narrative: Patient is nontoxic appearing. He is afebrile. Chest x-ray is negative. No signs of pneumonia. He does have diverticulitis on the CT scan there is concern for a micro perforation. There is no signs of abscess. He does have a relatively benign abdominal exam. I did discuss the case with Dr. Rayomnd which General surgery who recommended giving the patient a dose of IV antibiotics that would last 24 hours. He was given Rocephin. Will send home with a prescription for Cipro and Flagyl. Patient states he has had issues with Levaquin in the past but he has taken Cipro without any issues. The patient was given return precautions and follow-up instructions expressed understanding and agreement plan. Discharge Plan Departure Patient Disposition: Home Clinical Impression: Diverticulitis Discharge Date/Time: 04/28/19 21:44 Interventions: ED Discharge Assessment Last Done: 04/28/19 21:44 Instructions: DI for Diverticulitis Activity Restrictions/Additional Instructions: Filled the prescriptions in start taking the antibiotics as directed tomorrow morning. Tomorrow you can contact her primary care provider for a follow-up next week or you can contact the [place] surgeon group here in and [place] at [phone] for a follow-up. Return to the emergency department for any new or worsening symptoms Prescriptions: New metronidazole [Flagyl] 500 mg tablet 500 mg PO TID 10 Days Qty: 30 RF: 0 ciprofloxacin HCl 500 mg tablet 500 mg PO BID 10 Days Qty: 20 RF: 0 No Action albuterol sulfate [Proventil HFA] 90 MCG/PUFF HFA aerosol inhaler 1 puff INH PRN PRN (Reason: Shortness Of Breath) Qty: 0 RF: 0 lisinopril 20 MG tablet 20 mg PO DAILY Qty: 0 RF: 0 gabapentin 800 mg tablet 800 mg PO TID RF: 0 Combivent Respimat 20-100 mcg/actuation mist 1 puff INHALATION Q6H Qty: 4 RF: 0 meloxicam 15 mg tablet 15 mg PO DAILY RF: 0 fluticasone propionate 50 mcg/actuation spray,suspension 1 spray intranasal DAILY PRN (Reason: Allergy Symptoms) RF: 0 Referrals: Alva Rogers MD [Primary Care Provider] -
--- NOTE | 2019-04-28 19:42 | PC.NURSE ---
Attempted PIV placement, unsuccessful. Primary RN to attempt placement
[2019-04-28] MEDS: SODIUM CHLORIDE 0.9% 1,000 ML 1000 ML IV (20:12)
[2019-04-28] MEDS: CEFTRIAXONE 2 GM/50 ML FROZ.PIGGY IV (20:42)
[2019-04-28 21:44] VITALS: BP 161/92; PULSE 99; O2SAT 97
== END 2019-04-28 21:44 | disposition home or self-care (01) ==
PROVIDERS: Emergency Medicine; Emergency Provider Emergency Medicine; PCP Family Medicine
DX: K57.92 Diverticulitis of intestine, part unspecified, without perforation or abscess without bleeding (principal)
CPT/HCPCS: 36415; 71045; 74177; 80053; 81003; 83690; 85025; 85610; 85730; 96365; 99283; 99284; J0696; Q9967

== ENCOUNTER 2019-08-11 11:56 | Emergency (ER) | payer OTHER, MEDICAID, SELFPAY ==
[2019-08-11 12:05] VITALS: BP 152/92; PULSE 108; RESP 16; TEMP 38.7; O2SAT 97
--- NOTE | 2019-08-11 13:01 | DI.RAD.S_ITS ---
PROCEDURE: XR CHEST 1V INDICATIONS: fever TECHNIQUE: One view of the chest was acquired. COMPARISON: [facility], CR, XR CHEST 1V, 04/28/2019, 19:26. FINDINGS: Surgical changes and devices: None. Lungs and pleura: Lungs are clear. No pleural effusions or pneumothorax. Mediastinum: Mediastinal contours appear normal. Heart size is normal. Bones and chest wall: No suspicious bony lesions. Overlying soft tissues appear unremarkable. IMPRESSION: No acute disease Dictated by: Kam Fajardo M.D. on 08/11/2019 at 13:26 Approved by: Kam Fajardo M.D. on 08/11/2019 at 13:27
--- NOTE | 2019-08-11 13:06 | DI.CT.S_ITS ---
PROCEDURE: CT ABDOMEN PELVIS W CON INDICATIONS: llq pain hx of diverticulitis TECHNIQUE: After the administration of intravenous contrast, 5 mm thick sections acquired from the diaphragm to the symphysis. 5 mm coronal and sagittal reformats were acquired. For radiation dose reduction, the following was used: automated exposure control, adjustment of mA and/or kV according to patient size. COMPARISON: [facility], CT, CT ABDOMEN PELVIS W CON, 04/28/2019, 19:46. FINDINGS: Image quality: Excellent. ABDOMEN: Lung bases: There is mild dependent atelectasis bilaterally. There is a small pulmonary nodule within the visualized right middle lobe measuring up to approximately 4 mm on series 3 image 3 not included on the prior study. Heart size is normal. Solid organs: Evaluation of the liver demonstrates no focal hepatic lesions. The gallbladder appears within normal limits without calcified gallstones. Biliary system is non-dilated. Pancreas enhances normally. No peripancreatic fat stranding or fluid collections. No pancreatic duct dilatation. The spleen is normal in size. No adrenal nodules. Kidneys demonstrate no hydronephrosis. They're multiple left parapelvic renal cysts. Peritoneum and bowel: Small bowel loops demonstrate normal wall thickness and caliber. There is colonic diverticulosis with associated diverticular wall thickening and segmental colonic wall thickening in the proximal sigmoid colon as well as adjacent inflammatory fat stranding and minimal free fluid. Findings are consistent with acute diverticulitis. No discrete diverticular abscess or macroscopic free air. More distally, within the rectum, there is an oval lobulated enhancing intraluminal pedunculated mass measuring approximately 4.2 x 2.8 x 2.4 cm. No definite extramural extension on CT. No enlarged pericolonic lymph nodes by size criteria. Nodes and vessels: No retroperitoneal or mesenteric adenopathy by size criteria. Aorta and inferior vena cava are normal in size. Miscellaneous: No ventral hernias. PELVIS: Genitourinary: There is concentric bladder wall thickening with partial distention of the urinary bladder. Miscellaneous: No inguinal hernias or adenopathy. Bones: No suspicious bony lesions. No vertebral body compression fractures. IMPRESSION: 1. Sigmoid diverticulitis without evidence of abscess or macroscopic free air. 2. Intraluminal pedunculated enhancing mass in the rectum highly suspicious for rectal carcinoma. This appears increased in size and degree of enhancement compared to the prior study on which it was obscured by adjacent stool in the rectum. No definite extramural extension identified on CT. Recommend correlation with colonoscopy and a rectal protocol pelvic MRI for staging if clinically indicated. 3. No definite lymphadenopathy within the pelvis by size criteria. Findings discussed with Dr. Caballero on 08/11/19 at 3:20 p.m. Dictated by: Nelson Nava M.D. on 08/11/2019 at 15:15 Approved by: Nelson Nava M.D. on 08/11/2019 at 15:24
--- NOTE | 2019-08-11 13:17 | ED.ABDPAIN ---
HPI - Abdominal Pain General Chief Complaint: Abdominal Pain Stated Complaint: intestinal infection Time Seen by Provider: 08/11/19 13:01 Source: patient Mode of arrival: Ambulatory History of Present Illness HPI narrative: Patient is a 64-year-old male with history of diverticulitis presenting with fever and left lower quadrant pain ongoing for last 4 days. He said it pain started about 4 days ago, the fever started today. He has no nausea vomiting or diarrhea he feels like his stomach is bloated. He also has a dry nonproductive cough but no chest pain shortness of breath or heart palpitations. He has not had any change in bowel habits. He says he does have pain over last few days when he has a bowel movement but not prior to that he denies any blood in his stool. MD complaint: abdominal pain Onset (ago): day(s) (4) Pain Consistency: constant Severity: mild Related Data Home Medications Medication Instructions Recorded Confirmed lisinopril 20 mg PO DAILY #0 10/19/17 08/11/19 Previous Rx's Medication Instructions Recorded amoxicillin-pot clavulanate 1 tab PO Q12H #20 tab 08/11/19 [Augmentin] ketorolac 10 mg PO Q6H PRN #14 tab 08/11/19 Allergies Allergy/AdvReac Type Severity Reaction Status Date / Time Opioids - Morphine Analogues AdvReac Severe Unconscious Verified 08/11/19 12:09 [OPIOIDS - MORPHINE ANALOGUES] tramadol [TRAMADOL] AdvReac Severe Unconscious Verified 08/11/19 12:09 levofloxacin [From Levaquin] AdvReac Intermediate Numbness Verified 08/11/19 12:11 metronidazole [From Flagyl] AdvReac Intermediate Vomiting Verified 08/11/19 12:10 Review of Systems Review of Systems Narrative: GENERAL: + fever Denies chills, fatigue, malaise,, sweats, travel HEENT: Denies sinus pain, ear pain, sore throat, difficulty swallowing, neck pain RESPIRATORY: Denies dyspnea, cough, wheezing, hemoptysis, sputum. CARDIOVASCULAR: Denies chest pain, palpitations, orthopnea, edema GASTROINTESTINAL: See HPI : Denies dysuria, frequency, incontinence, hematuria, urinary retention, flank pain. MUSCULOSKELETAL: Denies weakness, joint pain, or bony pain SKIN: No rash, no erythema, no pruritus NEUROLOGIC: Denies weakness, dizziness, headache, numbness, change in speech, confusion PSYCHIATRIC: No concerning psychosocial issues. 12 point review of systems is negative except for those stated above and HPI Patient History Medical History Asthma with exacerbation (Inactive) Diverticulitis (Acute) Flu (Resolved) Pneumonia (Resolved) Pulmonary nodule (Acute) Surgical History No pertinent past surgical history (Acute) Social History Smoking Status: Former smoker alcohol intake frequency: 0-2 drinks per day Substance Use Type: does not use Exam Initial Vital Signs Initial Vital Signs: Vital Signs Temperature 101.6 F H 08/11/19 12:05 Pulse Rate 108 H 08/11/19 12:05 Respiratory Rate 16 08/11/19 12:05 Blood Pressure 152/92 H 08/11/19 12:05 Pulse Oximetry 97 08/11/19 12:05 GENERAL: Alert pleasant well-appearing middle-aged male no acute distress HEENT: Head atraumatic,EOMI, pupils reactive, face symmetric, moist mucous membranes CARDIOVASCULAR: Regular rate and rhythm without murmurs, rubs or gallops. RESPIRATORY: Breath sounds equal bilaterally, no wheezes rales or rhonchi. ABDOMEN: Soft, tender left lower quadrant no guarding no rebound EXTREMITIES: Normal range of motion, no clubbing or edema. Neurovascularly intact NEUROLOGICAL: Alert and oriented x4.Normal gait and speech. Cranial nerves II through XII grossly intact. SKIN: Warm, dry, no laceration, no petechiae, no rashes or lesions. Course Orders Ordered: ED Orders 08/11/19 13:01 XR chest 1V Stat 08/11/19 13:06 CT abdomen pelvis w con Stat 08/11/19 13:45 Complete Blood Count AUTO DIFF Stat Comprehensive Metabolic Panel Stat Lactate (Lactic Acid) Stat Lipase Stat Partial Thromboplastin Time Stat Procalcitonin Stat Prothrombin Time INR Stat 08/11/19 14:10 Blood Culture Stat 08/11/19 14:40 Urine Culture Stat Urine Microscopic Stat Discontinued Medications Sodium Chloride (Normal Saline 0.9%) 1,000 mls @ 200 mls/hr IV CONT MORGAN Last Infusion: 08/11/19 16:03 Dose: 0 mls/hr Documented by: Admin: 08/11/19 13:41 Dose: 200 mls/hr Documented by: REMY Ketorolac Tromethamine (Toradol) 30 mg IV NOW ONE Stop: 08/11/19 13:07 Last Admin: 08/11/19 13:41 Dose: 30 mg Documented by: REMY Vital Signs Vital signs: Vital Signs - 8 hr 08/11/19 12:05 08/11/19 13:41 08/11/19 14:53 Temperature 101.6 F H 101.6 F H 98.5 F Pulse Rate 108 H 67 Respiratory Rate 16 16 Blood Pressure 152/92 H Blood Pressure [Left Arm] 170/69 H Pulse Oximetry 97 98 08/11/19 15:08 08/11/19 16:02 Temperature Pulse Rate 92 H 76 Respiratory Rate 16 16 Blood Pressure 186/96 H Blood Pressure [Left Arm] 168/97 H Pulse Oximetry 98 99 MDM - Abdominal Pain Lab Data Attestation: I reviewed the patient's lab results. Result diagrams: 08/11/19 13:45 08/11/19 13:45 Labs: Lab Results 08/11/19 08/11/19 08/11/19 Range/Units 13:45 13:45 13:45 WBC 9.1 (4.5-11.0) X10^3/uL RBC 4.99 (4.5-5.9) X10^6/uL Hgb 15.2 (13.5-17.5) g/dL Hct 44.4 (41-53) % MCV 89.0 (80-100) fL MCH 30.5 (26-34) PG MCHC 34.2 (30-36) % RDW 14.7 (11.6-14.8) % Plt Count 204 (150-400) X10^3/uL Neut % (Auto) 81.1 H (50-75) % Lymph % (Auto) 10.6 L (25-40) % [place] % (Auto) 7.6 (3-14) % Eos % (Auto) 0.5 L (2-4) % Baso % (Auto) 0.2 (0-2) % Neut # (Auto) 7400 H (1891-5878) /uL Lymph # (Auto) 1000 L (9225-4144) /uL [place] # (Auto) 700 (0-900) /uL Eos # (Auto) 0 (0-450) /uL Baso # (Auto) 0 (0-100) /uL PT 11.3 (10.1-12.7) SECONDS INR 1.0 (0.9-1.3) APTT 30 (26.4-36.2) SECONDS Sodium (137-145) mmol/L Potassium (3.4-5.1) mmol/L Chloride (98-107) mmol/L Carbon Dioxide (22-32) mmol/L BUN (9-20) mg/dL Creatinine (0.66-1.25) mg/dL Estimated GFR (>60) mL/min BUN/Creatinine Ratio (6-22) Glucose (80-110) mg/dL Lactate (0.7-2.1) mmol/L Calcium (8.4-10.2) mg/dL Total Bilirubin (0.2-1.3) mg/dL AST (17-59) IU/L ALT (<50) IU/L Alkaline Phosphatase (38-126) U/L Total Protein (6.3-8.2) g/dL Albumin (3.5-5.0) g/dL Globulin (1.7-4.1) g/dL Albumin/Globulin Ratio (1.0-2.8) Lipase (23-300) U/L Procalcitonin 0.06 (<0.5) ng/mL Urine RBC (0-5/HPF) Urine WBC (0-5/HPF) Ur Squamous Epith Cells (0-5/HPF) Amorphous Sediment Urine Bacteria (None) Urine Mucus (Negative) Ur Culture Indicated? 08/11/19 08/11/19 08/11/19 Range/Units 13:45 13:45 14:40 WBC (4.5-11.0) X10^3/uL RBC (4.5-5.9) X10^6/uL Hgb (13.5-17.5) g/dL Hct (41-53) % MCV (80-100) fL MCH (26-34) PG MCHC (30-36) % RDW (11.6-14.8) % Plt Count (150-400) X10^3/uL Neut % (Auto) (50-75) % Lymph % (Auto) (25-40) % [place] % (Auto) (3-14) % Eos % (Auto) (2-4) % Baso % (Auto) (0-2) % Neut # (Auto) (6637-4918) /uL Lymph # (Auto) (8470-7129) /uL [place] # (Auto) (0-900) /uL Eos # (Auto) (0-450) /uL Baso # (Auto) (0-100) /uL PT (10.1-12.7) SECONDS INR (0.9-1.3) APTT (26.4-36.2) SECONDS Sodium 137 (137-145) mmol/L Potassium 4.5 (3.4-5.1) mmol/L Chloride 100 (98-107) mmol/L Carbon Dioxide 26 (22-32) mmol/L BUN 15 (9-20) mg/dL Creatinine 0.80 (0.66-1.25) mg/dL Estimated GFR > 60.0 (>60) mL/min BUN/Creatinine Ratio 18.8 (6-22) Glucose 112 H (80-110) mg/dL Lactate 1.1 (0.7-2.1) mmol/L Calcium 9.7 (8.4-10.2) mg/dL Total Bilirubin 0.7 (0.2-1.3) mg/dL AST 62 H (17-59) IU/L ALT 116 H (<50) IU/L Alkaline Phosphatase 46 (38-126) U/L Total Protein 8.0 (6.3-8.2) g/dL Albumin 4.8 (3.5-5.0) g/dL Globulin 3.2 (1.7-4.1) g/dL Albumin/Globulin Ratio 1.5 (1.0-2.8) Lipase 132 (23-300) U/L Procalcitonin (<0.5) ng/mL Urine RBC None seen (0-5/HPF) Urine WBC 0-1/hpf (0-5/HPF) Ur Squamous Epith Cells 0-1 /hpf (0-5/HPF) Amorphous Sediment 1+ Urine Bacteria Occasional (0-1) (None) Urine Mucus 1+ H (Negative) Ur Culture Indicated? Specimen cultured Point of care testing: Urine Dip Bedside Urine Glucose Negative Bedside Urine Bilirubin - Negative Bedside Urine Ketone - Negative Urine Specific [place] 1.020 Bedside Urine Occult Blood - Negative Bedside Urine pH 6.0 Bedside Urine Protein +/- 15 Bedside Urine Urobilinogen - Negative Bedside Urine Nitrite - Negative Bedside Urine Leukocytes + [address] scan - abdomen: Radiologist's impression: PROCEDURE: CT ABDOMEN PELVIS W CON INDICATIONS: llq pain hx of diverticulitis TECHNIQUE: After the administration of intravenous contrast, 5 mm thick sections acquired from the diaphragm to the symphysis. 5 mm coronal and sagittal reformats were acquired. For radiation dose reduction, the following was used: automated exposure control, adjustment of mA and/or kV according to patient size. COMPARISON: [facility], CT, CT ABDOMEN PELVIS W CON, 04/28/2019, 19:46. FINDINGS: Image quality: Excellent. ABDOMEN: Lung bases: There is mild dependent atelectasis bilaterally. There is a small pulmonary nodule within the visualized right middle lobe measuring up to approximately 4 mm on series 3 image 3 not included on the prior study. Heart size is normal. Solid organs: Evaluation of the liver demonstrates no focal hepatic lesions. The gallbladder appears within normal limits without calcified gallstones. Biliary system is non-dilated. Pancreas enhances normally. No peripancreatic fat stranding or fluid collections. No pancreatic duct dilatation. The spleen is normal in size. No adrenal nodules. Kidneys demonstrate no hydronephrosis. They're multiple left parapelvic renal cysts. Peritoneum and bowel: Small bowel loops demonstrate normal wall thickness and caliber. There is colonic diverticulosis with associated diverticular wall thickening and segmental colonic wall thickening in the proximal sigmoid colon as well as adjacent inflammatory fat stranding and minimal free fluid. Findings are consistent with acute diverticulitis. No discrete diverticular abscess or macroscopic free air. More distally, within the rectum, there is an oval lobulated enhancing intraluminal pedunculated mass measuring approximately 4.2 x 2.8 x 2.4 cm. No definite extramural extension on CT. No enlarged pericolonic lymph nodes by size criteria. Nodes and vessels: No retroperitoneal or mesenteric adenopathy by size criteria. Aorta and inferior vena cava are normal in size. Miscellaneous: No ventral hernias. PELVIS: Genitourinary: There is concentric bladder wall thickening with partial distention of the urinary bladder. Miscellaneous: No inguinal hernias or adenopathy. Bones: No suspicious bony lesions. No vertebral body compression fractures. IMPRESSION: 1. Sigmoid diverticulitis without evidence of abscess or macroscopic free air. 2. Intraluminal pedunculated enhancing mass in the rectum highly suspicious for rectal carcinoma. This appears increased in size and degree of enhancement compared to the prior study on which it was obscured by adjacent stool in the rectum. No definite extramural extension identified on CT. Recommend correlation with colonoscopy and a rectal protocol pelvic MRI for staging if clinically indicated. 3. No definite lymphadenopathy within the pelvis by size criteria. Findings discussed with Dr. Caballero on 08/11/19 at 3:20 p.m. Dictated by: Nelson Nava M.D. on 08/11/2019 at 15:15 Approved by: Nelson Nava M.D. on 08/11/2019 at 15:24 MDM Narrative Medical decision making narrative: HAVE DISCUSSED AT LENGTH WITH PATIENT about his CT results including likely colorectal cancer and diverticulitis. Discussed with him the urgent need to have a colonoscopy. He denies any change in bowel habits no blood. He says he is only having pain with bowel movements id the left lower quadrant due to the diverticulitis. He said last week he was doing okay. He says he cannot take Levaquin or Flagyl for diverticulitis he has not had any issues with Augmentin. I called and spoke with a at [facility] on-call for his PCP Dr. Rogers, updated her on CT results recommended urgent follow-up need for colonoscopy. Discharge Plan Departure Patient Disposition: Home Clinical Impression: Diverticulitis, Mass in rectum Discharge Date/Time: 08/11/19 16:05 Instructions: DI for Diverticulitis, DI for Colorectal Cancer Activity Restrictions/Additional Instructions: *You have been diagnosed with diverticulitis, mass in rectum *What to do: You do have diverticulitis which he will be placed on antibiotics for. However there is a mass in her rectum highly concerning for colorectal cancer. You need an urgent colonoscopy with a biopsy for a definitive answer. I have contacted your PCP Dr. Rogers's office personally. *Continue to take medications as directed Augmentin 875 mg twice a day for 10 days Ketorolac 10 mg every 8 hours if needed for [id number] pain *Follow up with Dr. Rogers, as soon as possible *Return to ER if you should have increased abdominal pain, persistent vomiting, fever not controlled or any new, worsening or concerning symptoms Prescriptions: New amoxicillin-pot clavulanate [Augmentin] 875-125 mg tablet 1 tab PO Q12H Qty: 20 RF: 0 ketorolac 10 mg tablet 10 mg PO Q6H PRN (Reason: pain) Qty: 14 RF: 0 No Action lisinopril 20 MG tablet 20 mg PO DAILY Qty: 0 RF: 0 Referrals: Alva Rogers MD [Primary Care Provider] -
[2019-08-11 13:41] VITALS: TEMP 38.7
[2019-08-11] MEDS: SODIUM CHLORIDE 0.9% 1,000 ML 200 ML IV (13:41)
[2019-08-11] MEDS: KETOROLAC 60 MG/2 ML VIAL 30 MG IV (13:41)
[2019-08-11 14:17] LABS: Add Manual Diff / Slide Review NO; Basophils Absolute Auto 0 /uL (0-100); Basophils Percent Auto 0.2 % (0-2); Eosinophils Absolute Auto 0 /uL (0-450); Eosinophils Percent Auto 0.5 % (2-4); Hematocrit 44.4 % (41-53); Hemoglobin 15.2 g/dL (13.5-17.5); Lymphocytes Absolute Auto 1000 /uL (1100-4500); Lymphocytes Percent Auto 10.6 % (25-40); Mean Corpuscular HGB Conc 34.2 % (30-36); Mean Corpuscular Hemoglobin 30.5 PG (26-34); Monocytes Absolute Auto 700 /uL (0-900); Monocytes Percent Auto 7.6 % (3-14); Neutrophils Absolute Auto 7400 /uL (1500-7000); Neutrophils Percent Auto 81.1 % (50-75); Platelet Count 204 X10^3/uL (150-400); Red Blood Cell Count 4.99 X10^6/uL (4.5-5.9); Red Cell Distribution Width 14.7 % (11.6-14.8); White Blood Cell Count 9.1 X10^3/uL (4.5-11.0)
[2019-08-11 14:23] LABS: Prothrombin Time 11.3 SECONDS (10.1-12.7)
[2019-08-11 14:25] LABS: PTT Partial Thromboplastin Tim 30 SECONDS (26.4-36.2)
[2019-08-11 14:28] LABS: Lactate (Lactic Acid) 1.1 mmol/L (0.7-2.1)
[2019-08-11 14:29] LABS: Alanine Aminotransferase 116 IU/L (<50); Albumin 4.8 g/dL (3.5-5.0); Albumin Globulin Ratio 1.5 (1.0-2.8); Alkaline Phosphatase 46 U/L (38-126); Aspartate Aminotransferase 62 IU/L (17-59); BUN Creatinine Ratio 18.8 (6-22); Bilirubin Total 0.7 mg/dL (0.2-1.3); Blood Urea Nitrogen 15 mg/dL (9-20); Calcium 9.7 mg/dL (8.4-10.2); Carbon Dioxide 26 mmol/L (22-32); Chloride 100 mmol/L (98-107); Estimated Glomerular Filt Rate > 60.0 mL/min (>60); Globulin 3.2 g/dL (1.7-4.1); Glucose 112 mg/dL (80-110); HEMOLYSIS < 15 (0-50); Lipase 132 U/L (23-300); Potassium 4.5 mmol/L (3.4-5.1); Sodium 137 mmol/L (137-145)
--- NOTE | 2019-08-11 14:30 | PC.NURSE ---
ambulating to bathroom, steady gait
[2019-08-11 14:44] LABS: Procalcitonin 0.06 ng/mL (<0.5)
[2019-08-11 14:53] VITALS: BP 170/69; PULSE 67; RESP 16; TEMP 36.9; O2SAT 98
[2019-08-11 15:00] LABS: RBC Urine None Seen (0-5/HPF)
[2019-08-11 15:08] VITALS: BP 168/97; PULSE 92; RESP 16; O2SAT 98
[2019-08-11 15:08] LABS: Squamous Epithelial Cell Urine 0-1 /HPF (0-5/HPF); WBC Urine 0-1/HPF (0-5/HPF)
[2019-08-11 15:09] LABS: Amorphous Sediment Urine 1+; Bacteria Urine Occasional (0-1); Culture Indicated Urine Specimen Cultured; Mucus Urine 1+ (Negative)
[2019-08-11 16:02] VITALS: BP 186/96; PULSE 76; RESP 16; O2SAT 99
== END 2019-08-11 16:05 | disposition home or self-care (01) ==
PROVIDERS: Emergency Provider Emergency Medicine; PCP Family Medicine
DX: K57.92 Diverticulitis of intestine, part unspecified, without perforation or abscess without bleeding (principal); K62.89 Other specified diseases of anus and rectum
CPT/HCPCS: 36415; 71045; 74177; 80053; 81003; 81015; 83605; 83690; 84145; 85025; 85610; 85730; 87040; 87086; 96361; 96374; 99283; 99284; J1885; Q9967

== ENCOUNTER 2019-08-22 08:10 | Day surgery (SDC) | payer OTHER, MEDICAID, SELFPAY ==
[2019-08-22] VITALS (9 sets, daily range): BP systolic 141–185; BP diastolic 86–129; PULSE 65–89; RESP 15–23; TEMP 36–36.7; O2SAT 93–97; BMI 37.2
--- NOTE | 2019-08-22 | PATH_ITS ---
[facility] Accession Number: [id number] . 01 Material submitted: . PART A: colon - RIGHT COLON BIOPSIES PART B: rectum - RECTAL MASS . 02 Diagnosis: A. Right Colon, Biopsies: Colonic mucosa with no diagnostic abnormality. Negative for active, chronic, and microscopic colitis. Negative for dysplasia and malignancy. . B. Rectal Mass, Biopsy: Traditional serrated adenoma, fragmented; please see comment. Negative for high-grade dysplasia or malignancy. MRV 08/23/2019 0939 Local . 02 Comment: B. A traditional serrated adenoma is considered an advanced adenoma. As such, assurance of complete removal of the lesion and a shortened surveillance interval are recommended. . 02 Electronically signed: . Lloyd Royal MD, PhD, Pathologist NPI- [id number] . 01 Gross description: . Part A: RIGHT COLON BIOPSIES: Received in formalin are multiple fragment(s) of almonte, soft tissue measuring 0.1 x 0.1 x 0.1 cm to 0.3 x 0.2 x 0.1 cm submitted entirely in 1 cassette(s) Part B: RECTAL MASS: Received in formalin are multiple fragment(s) of almonte, soft tissue measuring 0.1 x 0.1 x 0.1 cm to 1.3 x 1.2 x 1.2 cm which are sectioned and submitted entirely in 4 cassette(s) [place] [place]/22/2019 1927 Local . 02 Pathologist provided ICD-10: K62.89, D12.8 . 02 CPT . 610200, 618276 Performed at: [address] [facility], [place], [place] [id number] MD Nelson Mckinley MD Phone: [phone] Performed at: 02 [facility] [place] [address] [place] [id number] MD Melissa Daigle MD Phone: [phone]
[2019-08-22] MEDS: SODIUM CHLORIDE 0.9% 1,000 ML 200 ML IV (08:52)
--- NOTE | 2019-08-22 09:39 | PM.PREOP ---
Pre-operative Note Interval Note History & Physical reviewed/Exam performed by Physician: Yes Changes to H&P: No
[2019-08-22] MEDS: METOPROLOL TARTRATE 5 MG/5 ML INJ IV (10:26)
[2019-08-22] MEDS: fentaNYL 250 MCG/5 ML INJ IV (10:44)
[2019-08-22] MEDS: MIDAZOLAM 5 MG/5 ML VIAL IV (10:45)
--- NOTE | 2019-08-22 10:59 | PM.OP.ENDO ---
Operative Date/Time/Diagnoses Date of procedure: 08/22/19 Time of procedure: 10:59 Pre-op diagnosis: Rectal mass Post-op diagnosis: same Procedure & Clinicians Study performed: Colonoscopy Same procedure as scheduled: Yes Indications: This is a 64-year-old male who was found to have a incidental rectal mass on CT who presents for a diagnostic colonoscopy. No previous colonoscopy or history of malignancy Surgeon: Brandon Reyna Procedure Notes SCOAP/Timeout: Performed Procedure in detail: Patient placed in left lateral decubitus position. Time out was performed. Procedural sedation was administered with Versed and Fentanyl. A rectal exam demonstrated no external hemorrhoids no internal masses. Colonoscopy scope was placed into the rectum and advanced through the colon to the cecum. The ileocecal valve was identified. The scope was then slowly withdrawn examining colon thoroughly in all directions. The colonoscopy was notable for the following 1. Diffuse colitis within the right colon. There were clots with the right colon no active bleeding and no clear source. Random biopsies of the right colon were taken with jumbo forceps 2. Diverticulosis within the sigmoid colon 3. 4 cm rectal mass at 10 cm from the anal verge. tatoo with methylene blue. Removed approximately 75% of the mass in pieces with hot snare. Hemostasis was observed. 4. Quality of the prep-fair Scope withdrawal time: 20 Sedation minutes: 44 Findings: colitis, diverticulosis and polyp Specimen(s): other (rectal mass, random right colon biopsies) Complications: none Impression: Rectal mass Colitis Post-procedure Plan for aftercare: Follow up with surgical office in 2 weeks time. Follow up: weeks (2 weeks) Disposition: same day surgery
--- NOTE | 2019-08-22 11:26 | SUR.PHASEII ---
Assumed care from IDALIA Freeman. Pt in PHase 2 . Bed low and call leal placed with in pt's reach. Pt still sleepy but easily arousable. Asking appropriate questions. BP high, Dr. Reyna aware. Pt aware to take BP meds when he gets home.
--- NOTE | 2019-08-22 11:40 | SUR.PHASEII ---
Report to Helen, girlfriend brought in, discussed d/c instructions, she voiced an understanding. VS, BP better.
--- NOTE | 2019-08-22 12:20 | SUR.PHASEII ---
Awake now, ate crackers with water, VS still stable. Significant other assisted pt to dress, pt left when ready and left in stable condition.
== END 2019-08-22 12:22 | disposition home or self-care (01) ==
PROVIDERS: PCP Family Medicine; Visit Provider Surgery
PROC: 0DJD8ZZ Inspection of Lower Intestinal Tract, Via Natural or Artificial Opening Endoscopic (ICD-10-PCS; CPT 45378; principal; 2019-08-22 09:45)
DX: D12.8 Benign neoplasm of rectum (principal); K57.30 Diverticulosis of large intestine without perforation or abscess without bleeding
CPT/HCPCS: 45385; 45381; 45380; 99152; 99153; J2250; J3010

== ENCOUNTER 2019-11-28 23:52 | Emergency (ER) | payer OTHER, MEDICAID, SELFPAY ==
[2019-11-29] VITALS (9 sets, daily range): BP systolic 88–106; BP diastolic 52–68; PULSE 70–101; RESP 14–22; TEMP 36.6–36.9; O2SAT 96–99
--- NOTE | 2019-11-29 00:03 | DI.CT.S_ITS ---
PROCEDURE: CT ABDOMEN PELVIS W CON INDICATIONS: had polyp removal and fissure surgery today,rectal bleeding, dizziness TECHNIQUE: After the administration of intravenous contrast, 5 mm thick sections acquired from the diaphragm to the symphysis. 5 mm coronal and sagittal reformats were acquired. For radiation dose reduction, the following was used: automated exposure control, adjustment of mA and/or kV according to patient size. COMPARISON: [facility], CT, CT ABDOMEN PELVIS W CON, 04/28/2019, 19:46. [facility], CT, CT ABDOMEN PELVIS W CON, 08/11/2019, 14:36. FINDINGS: Image quality: Excellent. ABDOMEN: Lung bases: There is mild dependent atelectasis. In addition, a small pleural-based nodule is demonstrated posteriorly in the right lower lobe on series 3 image 2 measuring up to 5 mm this appears new from the prior study and may represent focal atelectasis. In addition, there is a small 3 mm nodule on image 8 which appears similar to the prior studies on which it was obscured by adjacent atelectasis. Heart size is normal. Solid organs: Evaluation of the liver demonstrates no focal hepatic lesions. The gallbladder appears within normal limits without calcified gallstones. Biliary system is non-dilated. Pancreas enhances normally. No peripancreatic fat stranding or fluid collections. No pancreatic duct dilatation. The spleen is normal in size. No adrenal nodules. Kidneys demonstrate no hydronephrosis. There are bilateral parapelvic renal cysts. Peritoneum and bowel: Small bowel loops demonstrate normal wall thickness and caliber. There is luminal fluid throughout the colon with air-fluid levels. There is irregularity of the bowel wall in the rectum with adjacent mild fat stranding. There is also associated extensive gas demonstrated along the sigmoid mesocolon contiguous with a small amount of pneumoperitoneum and pneumoretroperitoneum. There is minimal presacral free fluid. The findings are compatible with bowel perforation in the rectosigmoid colon. Colonic diverticulosis is redemonstrated without acute diverticulitis. Nodes and vessels: No retroperitoneal or mesenteric adenopathy by size criteria. Aorta and inferior vena cava are normal in size. Miscellaneous: No ventral hernias. PELVIS: Genitourinary: Bladder wall thickness is normal. Miscellaneous: No inguinal adenopathy. There are small fat-containing inguinal hernias. Bones: No suspicious bony lesions. No vertebral body compression fractures. IMPRESSION: 1. Irregularity of the bowel wall in the rectosigmoid colon with adjacent mild fat stranding, minimal free fluid, and extensive gas within the sigmoid mesocolon contiguous with a small amount of pneumoperitoneum and the retroperitoneum. The findings are consistent with a perforation of the rectosigmoid colon. Findings reported to Dr. Hernandez on 11/29/19 at 2:02 AM by [facility] radiology services. 2. Small bony nodules in the right lung base. Although the larger nodule likely represents focal atelectasis, a followup chest CT is recommended in 6 months to demonstrate resolution or stability. Dictated by: Nelson Nava M.D. on 11/29/2019 at 9:13 Approved by: Nelson Nava M.D. on 11/29/2019 at 9:26
--- NOTE | 2019-11-29 00:04 | ED_ITS ---
HPI - Abdominal Pain General Chief Complaint: GI Bleed Stated Complaint: Dizziness Time Seen by Provider: 11/28/19 23:56 Source: patient and EMS Mode of arrival: EMS Limitations: no limitations History of Present Illness HPI narrative: This is a 64-year-old male comes in with complaint of dizziness and rectal bleeding. Patient states he had colonoscopy and had a portion of polyp removed as well as surgery for fissure earlier today with Dr. Ramirez in [place]. Patient states he had a portion of the [place] room by Dr. Reyna here but then had to have some additional intervention by the other surgeon. Patient states that he went through about 5 or 6 pads bleeding rectally today. He felt very dizzy and lightheaded. He feels better lying flat at this time. Denies any chest pain or shortness of breath. Denies any abdominal pain. He does have rectal discomfort. Patient states he did have a bowel movement today but he did not look in the toilet afterwards. He did not appreciate any clots on the pads. He has not had any urinary issues. He has not had any fevers. He has not any blood thinners he does take medication for blood pressure, as well as chronic pain in the form of gabapentin. He states opiates can make him feel dizzy and shaky and he did receive some earlier today. Related Data Home Medications Medication Instructions Recorded Confirmed lisinopril 20 mg PO DAILY #0 10/19/17 08/22/19 Previous Rx's Medication Instructions Recorded amoxicillin-pot clavulanate 1 tab PO Q12H #20 tab 08/11/19 [Augmentin] peg 3350-electrolytes 236 240 ml PO Q10M #4000 ml 08/15/19 gram-22.74 gram-6.74 gram-5.86 gram solution Allergies Allergy/AdvReac Type Severity Reaction Status Date / Time Opioids - Morphine Analogues AdvReac Severe very sick Verified 08/22/19 08:35 [OPIOIDS - MORPHINE ANALOGUES] tramadol [TRAMADOL] AdvReac Severe Weakness Verified 08/22/19 08:35 levofloxacin [From Levaquin] AdvReac Intermediate Numbness Verified 08/22/19 08:35 metronidazole [From Flagyl] AdvReac Intermediate Vomiting Verified 08/22/19 08 :35 Review of Systems Review of Systems ROS Unobtainable: All systems reviewed & are unremarkable except as noted in HPI and below Patient History Social History marital status: household members: children occupational status: previously employed Smoking Status: Former smoker alcohol intake: never substance use type: does not use Smoking Status: Former smoker alcohol intake frequency: 0-2 drinks per day Substance Use Type: does not use Exam Narrative Exam Narrative: GENERAL: Alert and oriented x three, moderately obese male in mild distress. HEENT: Head normocephalic, atraumatic, EOMI, slightly pale conjunctiva, pupils reactive, face symmetric, moist mucous membranes NECK: Supple, full range of motion CARDIOVASCULAR: Tachycardic but regular rate and rhythm without murmurs, rubs or gallops. RESPIRATORY: Breath sounds equal bilaterally, no wheezes rales or rhonchi. ABDOMEN: Soft, nontender. Nondistended. Normoactive bowel sounds all 4 quadrants. No guarding or rebound, rigidity, no mass. Rectal exam shows small external hemorrhoids, no active bleeding. Small amount of dried red blood at the rectum. Digital exam deferred as patient had rectal surgery today. : No CVA tenderness EXTREMITIES: Normal range of motion, no clubbing or edema. Neurovascularly intact NEUROLOGICAL: Cranial nerves II through XII grossly intact. Moving all extremities SKIN: Warm, dry, no petechiae, no rashes or lesions. Initial Vital Signs Initial Vital Signs: Vital Signs Temperature 97.9 F 11/29/19 00:09 Pulse Rate 101 H 11/29/19 00:09 Respiratory Rate 22 11/29/19 00:09 Blood Pressure 89/52 L 11/29/19 00:09 Pulse Oximetry 98 11/29/19 00:09 Course Orders Ordered: ED Orders 11/29/19 00:01 Complete Blood Count AUTO DIFF Stat Type and Screen Stat 11/29/19 00:03 CT abdomen pelvis w con Stat 11/29/19 00:20 Comprehensive Metabolic Panel Stat Lipase Stat 11/29/19 03:09 Hemoglobin and Hematocrit Stat 11/29/19 03:30 Packed Cells Stat Sodium Chloride (Normal Saline 0.9%) 1,000 mls @ 100 mls/hr IV CONT MORGAN Last Infusion: 11/29/19 06:54 Dose: 100 mls/hr Documented by: Infusion: 11/29/19 04:40 Dose: 0 mls/hr Documented by: Admin: 11/29/19 02:52 Dose: 100 mls/hr Documented by: MEGA Discontinued Medications Sodium Chloride (Normal Saline 0.9%) 1,000 mls @ 1,000 mls/hr IV BOLUS ONE Stop: 11/29/19 01:02 Last Infusion: 11/29/19 02:52 Dose: 0 mls/hr Documented by: Admin: 11/29/19 00:16 Dose: 1,000 mls/hr Documented by: MATHIEU Piperacillin/Tazobactam/Dextrose (Zosyn) 4.5 gm in 100 mls @ 200 mls/hr IV NOW ONE Stop: 11/29/19 03:27 Last Admin: 11/29/19 06:54 Dose: 200 mls/hr Documented by: ALPHONSO Vital Signs Vital signs: Vital Signs - 8 hr 11/29/19 00:09 11/29/19 01:31 11/29/19 03:53 Temperature 97.9 F 98.1 F Pulse Rate 101 H 88 84 Respiratory Rate 22 15 Blood Pressure 89/52 L Blood Pressure [Right Arm] 102/59 L 88/54 L Pulse Oximetry 98 97 11/29/19 04:15 11/29/19 04:19 11/29/19 04:33 Temperature 97.8 F 98.5 F Pulse Rate 82 81 80 Respiratory Rate 16 14 Blood Pressure 95/62 92/52 L Blood Pressure [Right Arm] 95/62 Pulse Oximetry 98 11/29/19 05:53 11/29/19 06:14 Temperature 97.8 F Pulse Rate 73 70 Respiratory Rate 18 21 Blood Pressure Blood Pressure [Right Arm] 106/64 98/65 Pulse Oximetry 96 98 MDM - Abdominal Pain Lab Data Attestation: I reviewed the patient's lab results. Result diagrams: 11/29/19 03:09 11/29/19 00:20 Labs: Lab Results 11/28/19 11/28/19 11/29/19 Range/Units 23:59 23:59 00:20 WBC 13.0 H (4.5-11.0) X10^3/uL RBC 4.04 L (4.5-5.9) X10^6/uL Hgb 12.0 L (13.5-17.5) g/dL Hct 35.7 L (41-53) % MCV 88.5 (80-100) fL MCH 29.6 (26-34) PG MCHC 33.5 (30-36) % RDW 14.3 (11.6-14.8) % Plt Count 197 (150-400) X10^3/uL Neut % (Auto) 85.4 H (50-75) % Lymph % (Auto) 8.4 L (25-40) % [place] % (Auto) 5.8 (3-14) % Eos % (Auto) 0.0 L (2-4) % Baso % (Auto) 0.4 (0-2) % Neut # (Auto) 79393 H (3272-0283) /uL Lymph # (Auto) 1100 (4058-0317) /uL [place] # (Auto) 800 (0-900) /uL Eos # (Auto) 0 (0-450) /uL Baso # (Auto) 100 (0-100) /uL Sodium 132 L (137-145) mmol/L Potassium 4.7 (3.4-5.1) mmol/L Chloride 103 (98-107) mmol/L Carbon Dioxide 23 (22-32) mmol/L BUN 15 (9-20) mg/dL Creatinine 1.07 (0.66-1.25) mg/dL Estimated GFR > 60.0 (>60) mL/min BUN/Creatinine Ratio 14.0 (6-22) Glucose 160 H (80-110) mg/dL Calcium 8.4 (8.4-10.2) mg/dL Total Bilirubin 0.4 (0.2-1.3) mg/dL AST 51 (17-59) IU/L ALT 96 H (<50) IU/L Alkaline Phosphatase 26 L (38-126) U/L Total Protein 6.0 L (6.3-8.2) g/dL Albumin 3.5 (3.5-5.0) g/dL Globulin 2.5 (1.7-4.1) g/dL Albumin/Globulin Ratio 1.4 (1.0-2.8) Lipase 79 (23-300) U/L Blood Type B Positive Antibody Screen Negative Crossmatch See Detail 11/29/19 Range/Units 03:09 WBC (4.5-11.0) X10^3/uL RBC (4.5-5.9) X10^6/uL Hgb 10.9 L (13.5-17.5) g/dL Hct 31.4 L (41-53) % MCV (80-100) fL MCH (26-34) PG MCHC (30-36) % RDW (11.6-14.8) % Plt Count (150-400) X10^3/uL Neut % (Auto) (50-75) % Lymph % (Auto) (25-40) % [place] % (Auto) (3-14) % Eos % (Auto) (2-4) % Baso % (Auto) (0-2) % Neut # (Auto) (9892-0738) /uL Lymph # (Auto) (2613-3019) /uL [place] # (Auto) (0-900) /uL Eos # (Auto) (0-450) /uL Baso # (Auto) (0-100) /uL Sodium (137-145) mmol/L Potassium (3.4-5.1) mmol/L Chloride (98-107) mmol/L Carbon Dioxide (22-32) mmol/L BUN (9-20) mg/dL Creatinine (0.66-1.25) mg/dL Estimated GFR (>60) mL/min BUN/Creatinine Ratio (6-22) Glucose (80-110) mg/dL Calcium (8.4-10.2) mg/dL Total Bilirubin (0.2-1.3) mg/dL AST (17-59) IU/L ALT (<50) IU/L Alkaline Phosphatase (38-126) U/L Total Protein (6.3-8.2) g/dL Albumin (3.5-5.0) g/dL Globulin (1.7-4.1) g/dL Albumin/Globulin Ratio (1.0-2.8) Lipase (23-300) U/L Blood Type Antibody Screen Crossmatch Imaging Data CT scan - abdomen/pelvis: Radiologist's Impression: Extensive soft tissue gas in the rectosigmoid mesocolon, also small amount of pneumo retroperitoneum noted along with small amount pneumoperitoneum. Trace dependent free fluid in the presacral space. Left parapelvic renal cysts. Bilateral inguinal hernias containing fat unchanged. MDM Narrative Medical decision making narrative: Patient's heart rate has improved, his blood pressure is a systolic of 100 which patient states is normal for him. He does have a decrease in his hemoglobin of 15-12 since July of 2019. He has a white count of 13, sodium is 132 with a glucose of 160 and otherwise normal labs. CT shows extensive soft tissue gas in the rectosigmoid mesocolon with pneumo retroperitoneum and pneumoperitoneum and minimal presacral fluid. No acute intra-abdominal bleeding noted. Discussed with Radiology who states that this seems to be more gas than expected if patient had a endoscopic polyp removal. Patient's blood pressure has improved to the 100 systolic range after fluids and his heart rate is in the 80s, prior visits show he tends to run hypertensive in the 150 range although patient states this is his normal systolic blood pressure and he is feeling much better. Discussed with the on- call surgeon for Dr. Gunn patient's surgeon, Dr. Valenzuela. Case was discussed including patient's vitals, labs and presentation today. He is unable to get patient's imaging tonight and states that they would be happy to accept for Dr. Ramirez for transfer for evaluation. Discussed with patient and he is comfortable with this plan. Patient transfer is delayed there is no transportation available until 6am. repeat hemoglobin ordered and patient had Zosyn ordered for possible perforation. Patient BP has continued to be around 90-100 systolic regularly. He is currently asymptomatic, no rectal bleeding in the department at 0300. Patient's repeat hemoglobin is 10.9 down from 12.9 three hours after initial hgb. Patient's hgb was 15 on 08/11/19. There may be a dilutional component as he has received 1L of fluids. His blood pressures have been consistent and not dropping but have been in the 80s to 100 range and prior visits show a systolic in the 150 range more consistently, 2 units PRBCs were ordered and started with patient's consent. Patient has had some blood per rectum that is dark red around 0500 approximately 200mL total so far. Patient has been asymptomatic during this time otherwise with no dizziness, chest pain, shortness of breath. Patient transport is pending for 0800. Signed out to Dr. Feldman while awaiting transfer in the next 30 minutes. Patient HR has continued to remain stable, approximately 300mL total blood per rectum. Received Zosyn, PRBCs and IV fluids in department. Discharge Plan Departure Patient Disposition: [facility] Clinical Impression: Bright red rectal bleeding, Acute hypotension, Perforation of sigmoid colon Prescriptions: No Action lisinopril 20 MG tablet 20 mg PO DAILY Qty: 0 RF: 0 peg 3350-electrolytes [Golytely] 236-22.74-6.74 -5.86 gram recon soln 240 ml PO Q10M Qty: 4000 RF: 0 amoxicillin-pot clavulanate [Augmentin] 875-125 mg tablet 1 tab PO Q12H Qty: 20 RF: 0 Referrals: Alva Rogers MD [Primary Care Provider] -
[2019-11-29] MEDS: SODIUM CHLORIDE 0.9% 1,000 ML 1000 ML IV (00:16)
[2019-11-29 00:21] LABS: Add Manual Diff / Slide Review NO; Basophils Absolute Auto 100 /uL (0-100); Basophils Percent Auto 0.4 % (0-2); Eosinophils Absolute Auto 0 /uL (0-450); Hematocrit 35.7 % (41-53); Lymphocytes Absolute Auto 1100 /uL (1100-4500); Lymphocytes Percent Auto 8.4 % (25-40); Mean Corpuscular HGB Conc 33.5 % (30-36); Mean Corpuscular Hemoglobin 29.6 PG (26-34); Mean Corpuscular Volume 88.5 fL (80-100); Monocytes Absolute Auto 800 /uL (0-900); Monocytes Percent Auto 5.8 % (3-14); Neutrophils Absolute Auto 11100 /uL (1500-7000); Neutrophils Percent Auto 85.4 % (50-75); Platelet Count 197 X10^3/uL (150-400); Red Blood Cell Count 4.04 X10^6/uL (4.5-5.9); Red Cell Distribution Width 14.3 % (11.6-14.8)
[2019-11-29 00:41] LABS: Alanine Aminotransferase 96 IU/L (<50); Albumin 3.5 g/dL (3.5-5.0); Albumin Globulin Ratio 1.4 (1.0-2.8); Alkaline Phosphatase 26 U/L (38-126); Aspartate Aminotransferase 51 IU/L (17-59); Bilirubin Total 0.4 mg/dL (0.2-1.3); Blood Urea Nitrogen 15 mg/dL (9-20); Calcium 8.4 mg/dL (8.4-10.2); Carbon Dioxide 23 mmol/L (22-32); Chloride 103 mmol/L (98-107); Estimated Glomerular Filt Rate > 60.0 mL/min (>60); Globulin 2.5 g/dL (1.7-4.1); Glucose 160 mg/dL (80-110); HEMOLYSIS < 15 (0-50); Lipase 79 U/L (23-300); Potassium 4.7 mmol/L (3.4-5.1); Sodium 132 mmol/L (137-145)
--- NOTE | 2019-11-29 01:16 | PC.NURSE ---
reports recent procedure, having bright red blood discharge from anus now. reports feeling light headed and dizzy which is what caused him to call medics. He states his surgeon reccomended using menstral pads. He states he soaked more that one pad an hour for the last few hours.
[2019-11-29] MEDS: SODIUM CHLORIDE 0.9% 1,000 ML 100 ML IV (02:52)
[2019-11-29 03:20] LABS: Hematocrit 31.4 % (41-53); Hemoglobin 10.9 g/dL (13.5-17.5)
[2019-11-29] MEDS: PIPERACILLIN-TAZO 4.5 GM/100 ML FROZ.PIGGY IV (06:54)
--- NOTE | 2019-11-29 08:01 | PC.NURSE ---
normal saline to continue in transport
== END 2019-11-29 08:04 | disposition short-term general hospital (02) ==
PROVIDERS: Emergency Provider Emergency Medicine; PCP Family Medicine
DX: K62.5 Hemorrhage of anus and rectum (principal); I95.9 Hypotension, unspecified; K63.1 Perforation of intestine (nontraumatic); R79.89 Other specified abnormal findings of blood chemistry; E66.9 Obesity, unspecified
CPT/HCPCS: 36415; 36430; 74177; 80053; 83690; 85014; 85018; 85025; 86850; 86900; 86901; 96361; 96365; 99284; P9016; J2543

== ENCOUNTER 2020-04-03 08:56 | Outpatient (RCR) | payer OTHER, MEDICAID, SELFPAY ==
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
--- NOTE | 2020-04-03 11:31 | PT.OPPOC ---
Physical, Occupational & Speech Therapy At [facility] Current Diagnoses Bilateral primary osteoarthritis of knee (04/03/20) Unilateral primary osteoarthritis, right knee (04/03/20) Difficulty in walking, not elsewhere classified (04/03/20) Weakness (04/03/20) Visit Care Team Role Provider Type Alva Rogers MD Primary Care Provider Non-Staff Specialty: Medical Address: [address] [place] [address], [id number] Email: Nelson Thomas MD Attending Provider Physician Referring Provider Specialty: Orthopedic Surgery Address: [address] [place] [address], [id number] Email: [email or web address] Plan Of Care PT-OP-T Assessment and Plan Start: 04/02/20 16:45 Freq: Status: Active Protocol: Document 04/03/20 09:05 [facility] (Rec: 04/03/20 10:27 [facility] [id number]) Physical Therapy Assessment Rehab Potential Rehabilitation Potential Good Evaluation Complexity Number of Personal Factors/Comorbidities 1-2 Number of Body Systems Impaired 3 Clinical Presentation at Evaluation Stable Impairments Impairments Activity Tolerance,Pain,ROM, Strength Goals balance Impairment single leg stance right leg 4 sec Ramp Boss Goal (LTG) Improve safe mobility as evidenced by improved SLS to 10 sec right LE LTG Duration 06/02/20 Strength and ROM Impairment strength and ROM impairments bilateral LE's right greater than left Intermediate Goal (LTG) Patient will be independent and compliant for [facility] 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 LTG Duration 06/02/20 Stair climbing Impairment pt uses step to pattern for descend Ramp Boss Goal (LTG) Pt will be able to descend with step over pattern safely and independently. LTG Duration 06/02/20 LEFS Impairment low score= 34% Intermediate Goal (LTG) Pt will score at least 60% to improve his overall functional mobility and quality of life such as pain free for sit to stand, standing >1 hour, walk >1 hour etc. LTG Duration 06/02/20 Assessment Summary Assessment Patient presents with function -limiting pain bilateral knees limiting his mobility and activity tolerance. Impairments include decreased strength, ROM, flexibility, balance dysfunction. Signs and symptoms indicative of arthritis. Feel he would benefit fromn PT to improve his strength, ROM, flexibility , and balance and help return him to a more active and pain- free level of function. Discussed POC and patient agreed. Physical Therapy Plan Frequency and Duration Frequency of Treatment 2x/Week Duration of Treatment 8 weeks Plan of Care Start Date 04/03/20 Plan of Care End Date 06/02/20 Therapeutic Interventions Therapeutic Interventions Aquatic Therapy,Balance Training Modalities Cold Pack/Ice Massage,Electric Stimulation,Ultrasound Next Visit Focus/Plan Next Note Type Treatment Note Next Visit Plan Review HEP, progress with therapeutic exercise for strengthening, ROM, flexibility, and balance. Plan of Care Dates Plan of Care Start Date 04/03/20 Plan of Care End Date 06/02/20 Electronically Signed by: Jessica Bills, PT 04/03/20 [id number] Please Sign and Return: I have reviewed this Plan of Care and certify that the skilled therapy services above are required to meet the patient?s needs. Physician Signature Date Printed Name and Credentials Clinical Instructor Signature Printed Name and Credentials
--- NOTE | 2020-04-04 08:22 | PT-OP ANOTE ---
patient cancelled PT appointment
--- NOTE | 2020-04-13 10:45 | PT-OP ANOTE ---
Pt no showed today's appt, left a message regarding and no more appts scheduled but noted that cancelled 2 previous appts (knee hurting and televox resonse). Emailed primary PT, Jessica Bills, jose david.
--- NOTE | 2020-05-21 11:56 | PT-OP ANOTE ---
no PT visit; PT made phone call to patient to discuss options for PT. At evaluation patient reported he was not able to wear a mask to PT due to anxiety when wearing mask, hospital risk tech Janice Richmond and health care law specialist Xiomara Valencia spoke with patient to discuss our hospital policy requiring masks to work out solution. At that time patient reported having a face covering he could wear, though subsequently has stated he can't tolerate anything due to anxiety. He had a in the family and I hadn't talked with him again until today. He again stated he can't wear a mask but wants to do PT at our clinic. Stated he has already sued [facility] over this issue [facility] Notified Janice Richmond and Xiomara Valencia regarding contacting this patient further.
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
== END 2021-01-25 08:56 | disposition home or self-care (01) ==
LOC: PHYS 08:56
PROVIDERS: PCP Family Medicine; Referring Provider Orthopaedic Surgery; Visit Provider Orthopaedic Surgery
DX: M17.0 Bilateral primary osteoarthritis of knee (principal); R53.1 Weakness; R26.2 Difficulty in walking, not elsewhere classified
CPT/HCPCS: 97161; 97535

== ENCOUNTER 2020-06-21 13:15 | Emergency (ER) | payer OTHER, MEDICAID, SELFPAY ==
[2020-06-21 13:29] VITALS: BP 188/97; PULSE 82; RESP 17; TEMP 37; O2SAT 97; BMI 35.9
--- NOTE | 2020-06-21 13:30 | DI.RAD.S_ITS ---
PROCEDURE: XR FOOT LT MIN 3V INDICATIONS: left foot pain after felt a crunch TECHNIQUE: 3 views of the foot were acquired. COMPARISON: None. FINDINGS: Bones: No fractures or dislocations. No suspicious bony lesions. Well-defined dorsal calcaneal enthesophyte is seen. Soft tissues: No tibiotalar joint effusion. Achilles tendon appears normal. IMPRESSION: No gross acute left foot fracture or dislocation. Dorsal calcaneal enthesophyte. Dictated by: Clay Guy M.D. on 06/21/2020 at 13:30 Approved by: Clay Guy M.D. on 06/21/2020 at 13:37
--- NOTE | 2020-06-21 14:00 | ED.LOWEXIN ---
HPI - Extremity Injury (Lower) <DORIAN Huffman - Last Filed: 06/21/20 18:25> General Chief Complaint: Extremity Injury, Lower Stated Complaint: says he cant breath Time Seen by Provider: 06/21/20 13:32 Source: patient Mode of arrival: Ambulatory Limitations: no limitations History of Present Illness HPI Narrative: The patient is a 64-year-old male former smoker with history of asthma presents with a chief complaint of left-sided foot pain. He states he took a step on concrete on Thursday felt a crunch in his foot. Since then he has been in a lot of pain, especially when he gets up to use the bathroom at night. He states that he felt a crunch on the outside of his left foot. He has been using Motrin for pain. He denies any previous injuries to his feet, though notes that he has significant neuropathy. Denies any other injury from his episode on Thursday, did not have, denies any neck or back pain. States he has only in the emergency department for his foot. Related Data Home Medications Medication Instructions Recorded Confirmed lisinopril 20 mg PO DAILY #0 10/19/17 06/21/20 gabapentin 800 mg PO 06/21/20 Allergies Allergy/AdvReac Type Severity Reaction Status Date / Time Opioids - Morphine Analogues AdvReac Severe very sick Verified 08/22/19 08:35 [OPIOIDS - MORPHINE ANALOGUES] tramadol [TRAMADOL] AdvReac Severe Weakness Verified 08/22/19 08:35 levofloxacin [From Levaquin] AdvReac Intermediate Numbness Verified 08/22/19 08:35 metronidazole [From Flagyl] AdvReac Intermediate Vomiting Verified 08/22/19 08:35 Review of Systems <DORIAN Huffman - Last Filed: 06/21/20 18:25> Review of Systems Narrative: GENERAL: Denies chills, fatigue, malaise, fever, sweats. HEENT: Denies sinus pain, ear pain, sore throat, difficulty swallowing, dizziness. RESPIRATORY: Denies dyspnea, cough, wheezing, hemoptysis, sputum. CARDIOVASCULAR: Denies chest pain, palpitations, orthopnea, edema, GASTROINTESTINAL: Denies nausea, vomiting, abdominal pain, diarrhea, constipation, melena. : Denies dysuria, frequency, incontinence, hematuria, urinary retention. MUSCULOSKELETAL: See HPI SKIN: Denies rash, skin lesions, or other NEUROLOGIC: Denies weakness, headache, numbness, change in speech, confusion, seizures, incoordination. PSYCHIATRIC: No concerning psychosocial issues. 12 point review of systems is negative except for those stated above Patient History <DORIAN Huffman - Last Filed: 06/21/20 18:25> Medical History Asthma with exacerbation (Inactive) Diverticulitis (Acute) Flu (Resolved) Pneumonia (Resolved) Pulmonary nodule (Acute) Surgical History History of back surgery (Acute) Hx of arthroscopic knee surgery (Acute) No pertinent past surgical history (Acute) Social History marital status: household members: children occupational status: previously employed Smoking Status: Former smoker alcohol intake: never substance use type: does not use Smoking Status: Former smoker alcohol intake frequency: other Substance Use Type: does not use Exam <DORIAN Huffman - Last Filed: 06/21/20 18:25> Narrative Exam Narrative: GENERAL: This is a well-nourished, well-developed patient, in no acute distress HEAD: Atraumatic. Normocephalic. No temporal or scalp tenderness. EYES: Pupils equal round and reactive. Extraocular motions intact. No scleral icterus. No injection or drainage. ENT: Nose without bleeding, purulent drainage or septal hematoma. Throat without erythema, tonsillar hypertrophy or exudate. Uvula midline. Airway patent. NECK: Trachea midline. No JVD or lymphadenopathy. Supple, nontender, no meningeal signs. CARDIOVASCULAR: Regular rate and rhythm RESPIRATORY: No cough. No increased respiratory effort. No accessory muscle use. EXTREMITIES: Pain to palpation lateral left foot distal to 5th toe, cap refill less than 2 seconds all toes of left foot. Positive pedal pulses left foot. Able to flex and extend fully, no pain to palpation left ankle. BACK: Nontender without deformity or crepitance. No flank tenderness. NEURO: AOx3. SKIN: No rash or erythema on visible skin. No erythema ecchymosis laceration or abrasion noted on left foot. Initial Vital Signs Initial Vital Signs: Vital Signs Temperature 98.6 F 06/21/20 13:29 Pulse Rate 82 06/21/20 13:29 Respiratory Rate 17 06/21/20 13:29 Blood Pressure 188/97 H 06/21/20 13:29 Pulse Oximetry 97 06/21/20 13:29 <Elidia Segovia MD - Last Filed: 06/22/20 10:24> Initial Vital Signs Initial Vital Signs: Vital Signs Temperature 98.6 F 06/21/20 13:29 Pulse Rate 82 06/21/20 13:29 Respiratory Rate 17 06/21/20 13:29 Blood Pressure 188/97 H 06/21/20 13:29 Pulse Oximetry 97 06/21/20 13:29 Scores <DORIAN Huffman - Last Filed: 06/21/20 18:25> GCS [place] coma scale eye opening: Spontaneous Jazmin coma scale verbal response: Orientated [place] coma scale motor response: Obey commands [place] coma scale total score: 15 Course <DORIAN Huffman - Last Filed: 06/21/20 18:25> Orders Ordered: ED Orders 06/21/20 13:30 XR foot LT min 3V Stat Vital Signs Vital signs: Vital Signs - 8 hr 06/21/20 13:29 06/21/20 14:12 06/21/20 14:58 Temperature 98.6 F Pulse Rate 82 75 Pulse Rate [Left Dorsalis Pedis] 80 Respiratory Rate 17 Blood Pressure 188/97 H 184/107 H Pulse Oximetry 97 97 <Elidia Segovia MD - Last Filed: 06/22/20 10:24> Orders Ordered: ED Orders 06/21/20 13:30 XR foot LT min 3V Stat Vital Signs Vital signs: Vital Signs - 8 hr 06/21/20 13:29 06/21/20 14:12 06/21/20 14:58 Temperature 98.6 F Pulse Rate 82 75 Pulse Rate [Left Dorsalis Pedis] 80 Respiratory Rate 17 Blood Pressure 188/97 H 184/107 H Pulse Oximetry 97 97 MDM - Extremity Injury (Lower) <DORIAN Huffman - Last Filed: 06/21/20 18:25> Imaging Data Extremity x-ray #1: Radiologist's Impression: [address] [place] [id number] XRay Report Signed Patient: Lonnie Finch MMR#: [id number] : 5Acct:[id number] Age/Sex: 64 / MDate of Service: 06/21/20 Loc: ED Accession Number: [id number] Procedure: XR foot LT min 3V Ordering Provider: Elidia Segovia MD PROCEDURE: XR FOOT LT MIN 3V INDICATIONS: left foot pain after felt a crunch TECHNIQUE: 3 views of the foot were acquired. COMPARISON: None. FINDINGS: Bones: No fractures or dislocations. No suspicious bony lesions. Well-defined dorsal calcaneal enthesophyte is seen. Soft tissues: No tibiotalar joint effusion. Achilles tendon appears normal. IMPRESSION: No gross acute left foot fracture or dislocation. Dorsal calcaneal enthesophyte. Dictated by: Clay Guy M.D. on 06/21/2020 at 13:30 Approved by: Clay Guy M.D. on 06/21/2020 at 13:37 [facility] Narrative Medical decision making narrative: The patient is a 64-year-old male who presents with a chief complaint of left foot pain since he felt a crunch in his foot on Thursday. He is neurovascularly intact, has a negative x-ray. I offered the patient a postoperative shoe for support, which she declined. Offered pain medications which she declined. Offered ice packs which he declined. I did discuss the possibility of occult fracture, that x-ray does not rule out soft tissue injury, encouraged follow-up with primary care provider in the next few days. Patient has no questions or concerns upon discharge states understanding return precautions as well as follow-up care. Discharge Plan Departure Patient Disposition: Home Clinical Impression: Right foot strain Qualifiers: Encounter type: initial encounter Qualified Code(s): S96.911A - Strain of unspecified muscle and tendon at ankle and foot level, right foot, initial encounter Discharge Date/Time: 06/21/20 14:59 Instructions: How To Perform RICE (Rest, Ice, Compress, Elevate), DI for Foot Pain, DI for Foot Sprain Activity Restrictions/Additional Instructions: As I discussed, your x-ray shows no acute fracture. This does not rule out a soft tissue injury such as a ligament or tendon injury. It is important that you follow up with primary care provider, especially if worsening or no improvement. There can be fractures that did not show up on initial x-ray. Please use rest ice compression elevation as well as zlzy-owi-vnlmozz medications as needed and able. Please come back to emergency department for any acute concerns. Please follow-up with primary care provider next 48-72 hours. Prescriptions: No Action lisinopril 20 MG tablet 20 mg PO DAILY Qty: 0 RF: 0 gabapentin 800 mg tablet 800 mg PO RF: 0 Referrals: Alva Rogers MD [Primary Care Provider] - <Elidia Segovia MD - Last Filed: 06/22/20 10:24> Cosign ED Attending Cosignature Attestation: I was immediately available in the department for consultation throughout this patient's visit. I agree with documentation as above. Elidia Segovia MD
[2020-06-21 14:12] VITALS: PULSE 80
[2020-06-21 14:58] VITALS: BP 184/107; PULSE 75; O2SAT 97
== END 2020-06-21 14:59 | disposition home or self-care (01) ==
PROVIDERS: Emergency Provider Nurse Practitioner Family; PCP Family Medicine
DX: S96.911A Strain of unspecified muscle and tendon at ankle and foot level, right foot, initial encounter (principal); Y93.01 Activity, walking, marching and hiking; X58.XXXA Exposure to other specified factors, initial encounter
CPT/HCPCS: 73630; 99281; 99283

== ENCOUNTER 2020-08-09 10:16 | Emergency (ER) | payer MEDICARE, MEDICAID, SELFPAY ==
[2020-08-09 10:27] VITALS: BP 186/96; PULSE 85; RESP 18; O2SAT 96
--- NOTE | 2020-08-09 10:28 | ED.UPPEXIN ---
HPI - Extremity Injury (Upper) General Chief Complaint: Extremity Injury, Upper Stated Complaint: torn up left shoulder Time Seen by Provider: 08/09/20 10:28 Source: patient Mode of arrival: Ambulatory Limitations: no limitations History of Present Illness HPI narrative: Patient is a 65-year-old male with history of hypertension and arthritis presenting today with left shoulder pain. He says he has a history of frozen shoulder already. He said yesterday his knee gave out on him and he fell landing on his face. There was no loss of consciousness he screamed. Today he is having increasing shoulder pain but did not actually land on his left shoulder. He has no numbness tingling or weakness. He is currently refusing to wear a mask he says he has trouble breathing although he is agreeing to wear 1 while sitting just not whilel ambulating. He has no respiratory symptoms and no signs of respiratory distress. MD complaint: injury to: left Related Data Home Medications Medication Instructions Recorded Confirmed lisinopril 20 mg PO DAILY #0 10/19/17 06/21/20 gabapentin 800 mg PO 06/21/20 Allergies Allergy/AdvReac Type Severity Reaction Status Date / Time Opioids - Morphine Analogues AdvReac Severe very sick Verified 08/09/20 10:33 [OPIOIDS - MORPHINE ANALOGUES] tramadol [TRAMADOL] AdvReac Severe Weakness Verified 08/09/20 10:33 levofloxacin [From Levaquin] AdvReac Intermediate Numbness Verified 08/09/20 10:33 metronidazole [From Flagyl] AdvReac Intermediate Vomiting Verified 08/09/20 10:33 Review of Systems Review of Systems Narrative: GENERAL: Denies chills, fatigue, malaise, fever, sweats, travel HEENT: Denies sinus pain, ear pain, sore throat, difficulty swallowing, neck pain RESPIRATORY: Denies cough, wheezing, hemoptysis, sputum. CARDIOVASCULAR: Denies chest pain, palpitations, orthopnea, edema GASTROINTESTINAL: Denies nausea, vomiting, abdominal pain, diarrhea, constipation, melena. : Denies dysuria, frequency, incontinence, hematuria, urinary retention, flank pain. MUSCULOSKELETAL: See HPI SKIN: No rash, no erythema, no pruritus NEUROLOGIC: Denies weakness, dizziness, headache, numbness, change in speech, confusion PSYCHIATRIC: No concerning psychosocial issues. 12 point review of systems is negative except for those stated above and HPI Patient History Medical History (Updated 11/19/20 @ 11:09 by Soniya Caballero DO) Asthma with exacerbation Diverticulitis Flu Pneumonia Pulmonary nodule Surgical History History of back surgery Hx of arthroscopic knee surgery No pertinent past surgical history Social History marital status: household members: children occupational status: previously employed Smoking Status: Former smoker alcohol intake: never substance use type: does not use Smoking Status: Former smoker alcohol intake frequency: other Substance Use Type: does not use Exam Initial Vital Signs Initial Vital Signs: Vital Signs Pulse Rate 85 08/09/20 10:27 Respiratory Rate 18 08/09/20 10:27 Blood Pressure 186/96 H 08/09/20 10:27 Pulse Oximetry 96 08/09/20 10:27 GENERAL: Well-appearing, well-nourished and in no acute distress. HEENT: Head atraumatic,EOMI, pupils reactive, face symmetric, moist mucous membranes CARDIOVASCULAR: Regular rate and rhythm without murmurs, rubs or gallops. RESPIRATORY: Breath sounds equal bilaterally, no wheezes rales or rhonchi. Speaks in full sentences without any difficulty EXTREMITIES: Normal range of motion, no clubbing or edema. Neurovascularly intact. Left shoulder no clavicle step-offs able to abduct shoulder completely with hand above his head without any difficulty. Radial median and ulnar nerve intact. NEUROLOGICAL: Alert and oriented x4. SKIN: Warm, dry, no laceration, no petechiae, no rashes or lesions. Course Orders Ordered: ED Orders 08/09/20 10:36 XR shoulder LT min 2V Stat Discontinued Medications Ketorolac Tromethamine (Ketorolac 60 Mg/2 Ml Vial) 30 mg IM NOW ONE Stop: 08/09/20 10:37 Last Admin: 08/09/20 10:40 Dose: 30 mg Documented by: LISA Vital Signs Vital signs: Vital Signs - 8 hr 08/09/20 11:27 Temperature 97.6 F Pulse Rate 75 Respiratory Rate 16 Blood Pressure 171/94 H Pulse Oximetry 99 MDM - Extremity Injury (Upper) Imaging Data Extremity x-ray #1: Radiologist's Impression: PROCEDURE: XR SHOULDER LT MIN 2V INDICATIONS: fall pain TECHNIQUE: 3 views of the shoulder were acquired. COMPARISON: None. FINDINGS: Bones: No fracture or dislocation. There are degenerative changes of the acromioclavicular joint. The glenohumeral joint has minimal degenerative changes. Soft tissues: No suspicious soft tissue calcifications. IMPRESSION: No acute abnormality of the left shoulder. Dictated by: Leland Davalos M.D. on 08/09/2020 at 11:05 MDM Narrative Medical decision making narrative: Patient initially said he was exam from wearing his mask because it made it difficult for him to breathe however he was agreeable to wear well sitting. Discharge Plan Departure Patient Disposition: Home Clinical Impression: Other sprain of left shoulder joint, initial encounter Instructions: DI for Shoulder Sprain Activity Restrictions/Additional Instructions: *You have been diagnosed with left shoulder sprain *What to do: At this time there is no fracture. He may require an outpatient MRI if you continue to have symptoms however no indication for that today. Continue to increased movement as tolerated *Continue to take medications as directed Ibuprofen 600 mg every 6-8 hours if needed for zcby-lz-hgoltcww pain Tylenol 650 mg every 4-6 hours if needed for fmun-ih-lsmmcdig pain *Follow up with your primary care provider in 2-3 days *Return to ER if you should have increasing pain numbness tingling weakness or any new, worsening or concerning symptoms Prescriptions: No Action lisinopril 20 MG tablet 20 mg PO DAILY Qty: 0 RF: 0 gabapentin 800 mg tablet 800 mg PO RF: 0 Referrals: Alva Rogers MD [Primary Care Provider] -
--- NOTE | 2020-08-09 10:36 | DI.RAD.S_ITS ---
PROCEDURE: XR SHOULDER LT MIN 2V INDICATIONS: fall pain TECHNIQUE: 3 views of the shoulder were acquired. COMPARISON: None. FINDINGS: Bones: No fracture or dislocation. There are degenerative changes of the acromioclavicular joint. The glenohumeral joint has minimal degenerative changes. Soft tissues: No suspicious soft tissue calcifications. IMPRESSION: No acute abnormality of the left shoulder. Dictated by: Leland Davalos M.D. on 08/09/2020 at 11:05 Approved by: Leland Davalos M.D. on 08/09/2020 at 11:07
[2020-08-09] MEDS: KETOROLAC 60 MG/2 ML VIAL 30 MG IM (10:40)
[2020-08-09 10:45] VITALS: TEMP 36.3
[2020-08-09 11:27] VITALS: BP 171/94; PULSE 75; RESP 16; TEMP 36.4; O2SAT 99
== END 2020-08-09 11:30 | disposition home or self-care (01) ==
LOC: ED 11:32
PROVIDERS: Emergency Provider Emergency Medicine; PCP Family Medicine
DX: S43.402A Unspecified sprain of left shoulder joint, initial encounter (principal); W19.XXXA Unspecified fall, initial encounter
CPT/HCPCS: 73030; 96372; 99283; STOP; J1885

== ENCOUNTER 2020-08-14 11:14 | Emergency (ER) | payer MEDICARE, MEDICAID, SELFPAY ==
[2020-08-14 11:24] VITALS: BP 164/106; PULSE 93; PULSE 95; RESP 18; TEMP 36.2; O2SAT 97
[2020-08-14 11:30] VITALS: PULSE 90; O2SAT 96
[2020-08-14 11:31] VITALS: BP 156/71; PULSE 90; O2SAT 95
--- NOTE | 2020-08-14 11:42 | ED.GENADULT ---
HPI - General Adult General Chief complaint: Abdominal Pain Stated complaint: something buldging out of abdomen Time Seen by Provider: 08/14/20 11:28 Source: patient Mode of arrival: Ambulatory Related Data Home Medications Medication Instructions Recorded Confirmed lisinopril 20 mg PO DAILY #0 10/19/17 06/21/20 gabapentin 800 mg PO 06/21/20 Allergies Allergy/AdvReac Type Severity Reaction Status Date / Time Opioids - Morphine Analogues AdvReac Severe very sick Verified 08/09/20 10:33 [OPIOIDS - MORPHINE ANALOGUES] tramadol [TRAMADOL] AdvReac Severe Weakness Verified 08/09/20 10:33 levofloxacin [From Levaquin] AdvReac Intermediate Numbness Verified 08/09/20 10:33 metronidazole [From Flagyl] AdvReac Intermediate Vomiting Verified 08/09/20 10:33 Patient History Medical History (Updated 08/09/20 @ 11:09 by Soniya Caballero DO) Asthma with exacerbation Diverticulitis Flu Pneumonia Pulmonary nodule Surgical History History of back surgery Hx of arthroscopic knee surgery No pertinent past surgical history Social History marital status: household members: children occupational status: previously employed Smoking Status: Former smoker alcohol intake: never substance use type: does not use Smoking Status: Former smoker alcohol intake frequency: other Substance Use Type: does not use Exam Initial Vital Signs Initial Vital Signs: Vital Signs Temperature 97.1 F L 08/14/20 11:24 Pulse Rate 93 H 08/14/20 11:24 Respiratory Rate 18 08/14/20 11:24 Blood Pressure 164/106 H 08/14/20 11:24 Pulse Oximetry 97 08/14/20 11:24 Course Vital Signs Vital signs: Vital Signs - 8 hr 08/14/20 11:24 Temperature 97.1 F L Pulse Rate 93 H Respiratory Rate 18 Blood Pressure 164/106 H Pulse Oximetry 97 Discharge Plan Departure Prescriptions: No Action lisinopril 20 MG tablet 20 mg PO DAILY Qty: 0 RF: 0 gabapentin 800 mg tablet 800 mg PO RF: 0
--- NOTE | 2020-08-14 11:47 | ED.GENADULT ---
HPI - General Adult General Chief complaint: Abdominal Pain Stated complaint: something buldging out of abdomen Time Seen by Provider: 08/14/20 11:28 Source: patient Mode of arrival: Ambulatory Limitations: no limitations History of Present Illness HPI narrative: Patient is a 65-year-old male who was seen here in the emergency department a couple days ago with left shoulder pain. He states that since then he has noticed a bulge in his upper abdomen. Mostly when he uses his ABS to sit up because he is no longer allowed to push himself up with his left arm. No fevers. No vomiting. Has some discomfort but states fairly minimal. No bowel changes or constipation. Does have a history of diverticulitis. Related Data Home Medications Medication Instructions Recorded Confirmed lisinopril 20 mg PO DAILY #0 10/19/17 06/21/20 gabapentin 800 mg PO 06/21/20 Allergies Allergy/AdvReac Type Severity Reaction Status Date / Time Opioids - Morphine Analogues AdvReac Severe very sick Verified 08/09/20 10:33 [OPIOIDS - MORPHINE ANALOGUES] tramadol [TRAMADOL] AdvReac Severe Weakness Verified 08/09/20 10:33 levofloxacin [From Levaquin] AdvReac Intermediate Numbness Verified 08/09/20 10:33 metronidazole [From Flagyl] AdvReac Intermediate Vomiting Verified 08/09/20 10:33 Review of Systems Constitutional Constitutional: Denies fever(s) Cardiovascular Cardiovascular: Denies chest pain and Denies dyspnea Respiratory Respiratory: Denies dyspnea Gastrointestinal Gastrointestinal: Reports abdominal pain, Denies change in bowel habits, Denies nausea and Denies vomiting Comments: Bulging med abdomen Genitourinary Genitourinary: Denies dysuria Genitourinary: Denies dysuria Musculoskeletal Musculoskeletal: Denies arthralgias and Denies myalgias Integumentary/Breasts Skin/Breast: Denies rash Neurologic Neurologic: Denies behavioral changes Psychiatric Psychiatric: Denies behavioral changes Hematologic/Lymphatic Hematologic/Lymphatic: Denies easy bleeding and Denies easy bruising Patient History Medical History (Updated 08/14/20 @ 14:10 by Jose Espinoza DO) Asthma with exacerbation Diverticulitis Flu Pneumonia Pulmonary nodule Surgical History History of back surgery Hx of arthroscopic knee surgery No pertinent past surgical history Social History (Reviewed 08/14/20 @ 11:50 by ROB Cabrales marital status: household members: children occupational status: previously employed Smoking Status: Former smoker alcohol intake: never substance use type: does not use Smoking Status: Former smoker alcohol intake frequency: other Substance Use Type: does not use Exam Initial Vital Signs Initial Vital Signs: Vital Signs Temperature 97.1 F L 08/14/20 11:24 Pulse Rate 93 H 08/14/20 11:24 Respiratory Rate 18 08/14/20 11:24 Blood Pressure 164/106 H 08/14/20 11:24 Pulse Oximetry 97 08/14/20 11:24 Const General: cooperative and comfortable Limitations: mental status not altered HENMT Head: normal to inspection and normocephalic Resp Effort & Inspection: normal respiratory effort GI Inspection: non-distended Palpation: soft Other: Does have a easily reducible umbilical hernia. Has a bulging specially with flexion of his abdomen between his umbilicus and his epigastrium. There is no deficits specifically felt in the abdominal wall. Skin Lesions: no lesions Rashes: no rashes Neuro General: patient alert and patient awake Cognition: normal cognition Speech: speech normal Extrem General: normal to inspection and capillary refill normal Psych Appearance: grossly normal and well kempt Course Orders Ordered: ED Orders 08/14/20 12:45 Basic Metabolic Panel Stat Complete Blood Count AUTO DIFF Stat 08/14/20 13:21 CT abdomen pelvis w con Stat Discontinued Medications Sodium Chloride (Normal Saline 0.9%) 1,000 mls @ 1,000 mls/hr IV BOLUS ONE Stop: 08/14/20 12:46 Vital Signs Vital signs: Vital Signs - 8 hr 08/14/20 11:24 08/14/20 11:30 08/14/20 11:31 Temperature 97.1 F L Pulse Rate 95 H 90 90 Respiratory Rate 18 Blood Pressure 164/106 H 156/71 H Pulse Oximetry 97 96 95 08/14/20 12:00 08/14/20 12:01 Temperature Pulse Rate 88 89 Respiratory Rate Blood Pressure 169/93 H Pulse Oximetry 96 96 Medical Decision Making Lab Data Lab results reviewed: Yes I reviewed the patient's lab results. Result diagrams: 08/14/20 12:45 08/14/20 12:45 Labs: Lab Results 08/14/20 08/14/20 Range/Units 12:45 12:45 WBC 5.5 (4.5-11.0) X10^3/uL RBC 4.96 (4.5-5.9) X10^6/uL Hgb 15.1 (13.5-17.5) g/dL Hct 43.5 (41-53) % MCV 87.8 (80-100) fL MCH 30.4 (26-34) PG MCHC 34.6 (30-36) % RDW 14.6 (11.6-14.8) % Plt Count 197 (150-400) X10^3/uL Neut % (Auto) 61.5 (50-75) % Lymph % (Auto) 26.9 (25-40) % [place] % (Auto) 8.5 (3-14) % Eos % (Auto) 2.3 (2-4) % Baso % (Auto) 0.8 (0-2) % Neut # (Auto) 3400 (9533-4439) /uL Lymph # (Auto) 1500 (9840-3747) /uL [place] # (Auto) 500 (0-900) /uL Eos # (Auto) 100 (0-450) /uL Baso # (Auto) 0 (0-100) /uL Sodium 134 L (137-145) mmol/L Potassium 4.3 (3.4-5.1) mmol/L Chloride 101 (98-107) mmol/L Carbon Dioxide 27 (22-32) mmol/L BUN 16 (9-20) mg/dL Creatinine 0.72 (0.66-1.25) mg/dL Estimated GFR > 60.0 (>60) mL/min BUN/Creatinine Ratio 22.2 H (6-22) Glucose 103 (80-110) mg/dL Calcium 9.4 (8.4-10.2) mg/dL Imaging Data CT scan - abdomen/pelvis: Radiologist's Impression: [address] [id number] Scan ReportSigned Patient: Lonnie Finch MMR#: [id number]: 5Acct:[id number]/Sex: 65 / MDate of Service: 08/14/20Loc: EDAccession Number: [id number] Procedure: CT abdomen pelvis w con Ordering Provider: Jose Espinoza D.O. PROCEDURE: CT ABDOMEN PELVIS W CON INDICATIONS: Concern for ventral hernia between epigastrium and umbilicus TECHNIQUE: After the administration of intravenous contrast, 5 mm thick sections acquired from the diaphragm to the symphysis. 5 mm coronal and sagittal reformats were acquired. For radiation dose reduction, the following was used: automated exposure control, adjustment of mA and/or kV according to patient size. COMPARISON: [facility], CT, CT ABDOMEN PELVIS W CON, 11/29/2019, 0:03. FINDINGS: Image quality: Excellent. ABDOMEN: Lung bases: Lung bases are clear. Heart size is normal. Solid organs: Liver is normal in size and enhancement. Gallbladder is unremarkable. Biliary system is non dilated. Pancreas enhances normally. Spleen is normal in size and enhancement. No adrenal nodules. Kidneys demonstrate normal size and enhancement, without hydronephrosis. Multiple left peripelvic renal cysts. Peritoneum and bowel: Bowel loops demonstrate normal wall thickness and caliber. No free fluid or air. Sigmoid diverticulosis without evidence of diverticulitis. Nodes and vessels: No retroperitoneal or mesenteric adenopathy by size criteria. Aorta and inferior vena cava are normal in size. Miscellaneous: Ventral abdominal wall rectus diastasis with associated small periumbilical hernia. The hernia contains fat only. PELVIS: Genitourinary: Bladder wall thickness is normal. Miscellaneous: Bilateral inguinal hernias containing fat. Bones: No suspicious bony lesions. No vertebral body compression fractures. IMPRESSION: 1. No evidence acute abdominal process. 2. Sigmoid diverticulosis. 3. Rectus diastasis with small associated periumbilical hernia. 4. Bilateral inguinal hernias containing fat. Dictated by: Garret Mojica M.D. on 08/14/2020 at 13:53 Approved by: Garret Mojica M.D. on 08/14/2020 at 13:58 [facility] Narrative Medical decision making narrative: I did have discussion with the patient regarding his symptoms and forming him that we could potentially just discharge him from the emergency department have him follow up with General surgery to see if they thought that he needed CT scan is I told him that even if he did have a ventral hernia it was not incarcerated or strangulated. He opted to have the CT scan done here in the emergency department. Does show a diastasis recti an umbilical hernia. The umbilical hernia is easily reducible. I did discuss with him the findings of the CT scan. Discussed return precautions and follow-up instructions. He expressed understanding and agreement. Discharge Plan Departure Patient Disposition: Home Clinical Impression: Hernia, umbilical, Diastasis recti Activity Restrictions/Additional Instructions: Recommend you contact your primary provider for a follow-up. Return to the emergency department for any new or worsening symptoms Prescriptions: No Action lisinopril 20 MG tablet 20 mg PO DAILY Qty: 0 RF: 0 gabapentin 800 mg tablet 800 mg PO RF: 0 Referrals: Alva Rogers MD [Primary Care Provider] -
[2020-08-14 12:00] VITALS: PULSE 88; O2SAT 96
[2020-08-14 12:01] VITALS: BP 169/93; PULSE 89; O2SAT 96
[2020-08-14 12:59] LABS: Add Manual Diff / Slide Review NO; Basophils Absolute Auto 0 /uL (0-100); Basophils Percent Auto 0.8 % (0-2); Eosinophils Absolute Auto 100 /uL (0-450); Eosinophils Percent Auto 2.3 % (2-4); Hematocrit 43.5 % (41-53); Hemoglobin 15.1 g/dL (13.5-17.5); Lymphocytes Absolute Auto 1500 /uL (1100-4500); Lymphocytes Percent Auto 26.9 % (25-40); Mean Corpuscular HGB Conc 34.6 % (30-36); Mean Corpuscular Hemoglobin 30.4 PG (26-34); Mean Corpuscular Volume 87.8 fL (80-100); Monocytes Absolute Auto 500 /uL (0-900); Monocytes Percent Auto 8.5 % (3-14); Neutrophils Absolute Auto 3400 /uL (1500-7000); Neutrophils Percent Auto 61.5 % (50-75); Platelet Count 197 X10^3/uL (150-400); Red Blood Cell Count 4.96 X10^6/uL (4.5-5.9); Red Cell Distribution Width 14.6 % (11.6-14.8); White Blood Cell Count 5.5 X10^3/uL (4.5-11.0)
[2020-08-14 13:14] LABS: BUN Creatinine Ratio 22.2 (6-22); Blood Urea Nitrogen 16 mg/dL (9-20); Calcium 9.4 mg/dL (8.4-10.2); Carbon Dioxide 27 mmol/L (22-32); Chloride 101 mmol/L (98-107); Estimated Glomerular Filt Rate > 60.0 mL/min (>60); Glucose 103 mg/dL (80-110); HEMOLYSIS 39 (0-50); Potassium 4.3 mmol/L (3.4-5.1); Sodium 134 mmol/L (137-145)
--- NOTE | 2020-08-14 13:21 | DI.CT.S_ITS ---
PROCEDURE: CT ABDOMEN PELVIS W CON INDICATIONS: Concern for ventral hernia between epigastrium and umbilicus TECHNIQUE: After the administration of intravenous contrast, 5 mm thick sections acquired from the diaphragm to the symphysis. 5 mm coronal and sagittal reformats were acquired. For radiation dose reduction, the following was used: automated exposure control, adjustment of mA and/or kV according to patient size. COMPARISON: [facility], CT, CT ABDOMEN PELVIS W CON, 11/29/2019, 0:03. FINDINGS: Image quality: Excellent. ABDOMEN: Lung bases: Lung bases are clear. Heart size is normal. Solid organs: Liver is normal in size and enhancement. Gallbladder is unremarkable. Biliary system is non dilated. Pancreas enhances normally. Spleen is normal in size and enhancement. No adrenal nodules. Kidneys demonstrate normal size and enhancement, without hydronephrosis. Multiple left peripelvic renal cysts. Peritoneum and bowel: Bowel loops demonstrate normal wall thickness and caliber. No free fluid or air. Sigmoid diverticulosis without evidence of diverticulitis. Nodes and vessels: No retroperitoneal or mesenteric adenopathy by size criteria. Aorta and inferior vena cava are normal in size. Miscellaneous: Ventral abdominal wall rectus diastasis with associated small periumbilical hernia. The hernia contains fat only. PELVIS: Genitourinary: Bladder wall thickness is normal. Miscellaneous: Bilateral inguinal hernias containing fat. Bones: No suspicious bony lesions. No vertebral body compression fractures. IMPRESSION: 1. No evidence acute abdominal process. 2. Sigmoid diverticulosis. 3. Rectus diastasis with small associated periumbilical hernia. 4. Bilateral inguinal hernias containing fat. Dictated by: Garret Mojica M.D. on 08/14/2020 at 13:53 Approved by: Garret Mojica M.D. on 08/14/2020 at 13:58
[2020-08-14 14:30] VITALS: BP 149/76; PULSE 76; RESP 17; O2SAT 99
== END 2020-08-14 14:31 | disposition home or self-care (01) ==
PROVIDERS: Emergency Provider Emergency Medicine; PCP Family Medicine
DX: K42.9 Umbilical hernia without obstruction or gangrene (principal); M62.08 Separation of muscle (nontraumatic), other site; R10.9 Unspecified abdominal pain; M25.512 Pain in left shoulder
CPT/HCPCS: 36415; 74177; 80048; 85025; 99281; 99284; Q9967

== ENCOUNTER 2020-09-13 15:15 | Emergency (ER) | payer MEDICARE, MEDICAID, SELFPAY ==
[2020-09-13 15:15] VITALS: BP 176/75; PULSE 85; RESP 18; TEMP 36.1; O2SAT 100; BMI 35.9
--- NOTE | 2020-09-13 16:27 | ED_ITS ---
HPI - Neck Pain/Injury General Chief Complaint: Neck Pain/Injury Stated Complaint: left shoulder and neck pain Time Seen by Provider: 09/13/20 16:18 Source: patient and old records reviewed Mode of arrival: Ambulatory Limitations: no limitations History of Present Illness HPI Narrative: This is a 65-year-old male comes to the emergency department with complaint of neck and left shoulder pain that is been present for several years. He states about a month ago he had a fall and landed him on his side/neck. He states since then he has had pain. He states initially he had tingling down his right arm and then pain moved more to the left arm. He states it is mostly in the left shoulder, it is increased with movement and radiates down the arm. He states movement of his neck does not necessarily increased pain but sometimes his neck will pop in that improved his symptoms. Patient denies any numbness tingling or weakness he states his thumbs have not worked for a very long time and so he does sometimes have trouble grasping things. Patient has not had any swelling, no redness or skin changes. He denies any lightheadedness or passing out, no chest pain, no shortness of breath, no nausea or vomiting. No loss of bowel or bladder control. 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 States he had lower lumbar surgery in the past. Denies any prior cervical surgery or interventions. Patient states he does not tolerate opioids at all. Has had so which has been helpful in the past and he finds Toradol helpful. He does have Mobic and states it somewhat helpful. Related Data Home Medications Medication Instructions Recorded Confirmed lisinopril 20 mg PO DAILY #0 10/19/17 06/21/20 gabapentin 800 mg PO 06/21/20 Previous Rx's Medication Instructions Recorded carisoprodol 250 mg PO TID PRN #10 tab 09/13/20 ketorolac 10 mg PO Q6H PRN 5 Days #10 tab 09/13/20 Allergies Allergy/AdvReac Type Severity Reaction Status Date / Time Opioids - Morphine Analogues AdvReac Severe very sick Verified 08/09/20 10:33 [OPIOIDS - MORPHINE ANALOGUES] tramadol [TRAMADOL] AdvReac Severe Weakness Verified 08/09/20 10:33 levofloxacin [From Levaquin] AdvReac Intermediate Numbness Verified 08/09/20 10:33 metronidazole [From Flagyl] AdvReac Intermediate Vomiting Verified 08/09/20 10:33 Review of Systems Review of Systems ROS Unobtainable: All systems reviewed & are unremarkable except as noted in HPI and below Patient History Medical History Asthma with exacerbation Diverticulitis Flu Pneumonia Pulmonary nodule Surgical History History of back surgery Hx of arthroscopic knee surgery No pertinent past surgical history Social History marital status: household members: children occupational status: previously employed Smoking Status: Former smoker alcohol intake: never substance use type: does not use Smoking Status: Former smoker alcohol intake frequency: other Substance Use Type: does not use Exam Narrative Exam Narrative: GEN: well nourished, well appearing male, alert and oriented x 3, patient appears to be in moderate distress. HEENT: Atraumatic, pupils are equal round reactive to light, extraocular movements are intact. HEART: Regular rate and rhythm without murmur, clicks, rubs. No carotid bruits, pulses are equal in upper and lower extremities LUNGS:Lungs clear to auscultation, no wheezes, rales, crackles, chest moves symmetrically ABD:bowel sounds normal, soft, non-tender, no guarding, rebound, rigidity, no ma sses noted, no hepatosplenomegaly BACK: No cervical, thoracic or lumbar vertebral point tenderness. Patient has normal range of motion. Patient's gait is [antalgic/normal]. Rectal exam is deferred. Muscle strength is 5/5 in upper extremities. 2+ radial pulses bilaterally. Sensation is intact in the upper extremities. Oncology Consultant is equal bilaterally. MSCL: Non-tender, no muscle atrophy. Patient has increased pain with rotation of the shoulder no pain at the elbow were wrist. Negative Spurling NEURO:CN 2-12 intact, sensation normal SKIN: no erythema, rash or other changes noted. Initial Vital Signs Initial Vital Signs: Vital Signs Temperature 96.9 F L 09/13/20 15:15 Pulse Rate 85 09/13/20 15:15 Respiratory Rate 18 09/13/20 15:15 Blood Pressure 176/75 H 09/13/20 15:15 Pulse Oximetry 100 09/13/20 15:15 Course Orders Ordered: Discontinued Medications Cyclobenzaprine HCl (Cyclobenzaprine 10 Mg Prepack) 1 bottle MISC SEEINSTR ONE Stop: 09/13/20 16:51 Last Admin: 09/13/20 17:04 Dose: 1 bottle Documented by: Ketorolac Tromethamine (Ketorolac 60 Mg/2 Ml Vial) 30 mg IM NOW ONE Stop: 09/13/20 16:39 Last Admin: 09/13/20 17:04 Dose: 30 mg Documented by: Ketorolac Tromethamine (Ketorolac 10mg Prepack) 1 bottle MISC SEEINSTR ONE Stop: 09/13/20 16:51 Last Admin: 09/13/20 17:05 Dose: 1 bottle Documented by: Vital Signs Vital signs: Vital Signs - 8 hr 09/13/20 15:15 Temperature 96.9 F L Pulse Rate 85 Respiratory Rate 18 Blood Pressure 176/75 H Pulse Oximetry 100 MDM - Neck Pain/Injury MDM Narrative Medical decision making narrative: Patient has an MRI scheduled for the very beginning of September. He came today requesting MRI. Patient and I discussed it is unavailable today it is not being currently staffed by technicians. He does not have any red flag symptoms that would cause me to feel we need transfer for MRI. Patient defers imaging such as CT although would give us some information about bony changes in impingement he defers secondary to radiation does not have red flag symptoms that would cause me to encouraged him to obtain at this time. Patient does follow up primary care. Given a short prescription for ketorolac he is aware he should not take it for more than 5 days. Patient has also taken soma which has also been helpful. Discharge Plan Departure Patient Disposition: Home Clinical Impression: Cervical radiculopathy Instructions: DI for Cervical Radiculopathy Activity Restrictions/Additional Instructions: Follow-up with your physician for recheck and for your MRI imaging in September. You may take Toradol, 1 tablet every 6 hours as needed for pain. You may take Tylenol with this medication if you find it helpful 1000 mg every 8 hours as needed. Take muscle relaxers as prescribed, this medication can make you sleepy do not drive, perform hazardous activities or make any major decisions while taking it. Return to the ER for fevers, new weakness, loss of sensation, inability to blood bank technologist, lightheadedness or passing out, new chest pain or shortness of breath, per sistent vomiting, loss of bowel or bladder control or other new or concerning symptoms. Prescriptions: New carisoprodol 250 mg tablet 250 mg PO TID PRN (Reason: muscle pain) Qty: 10 RF: 0 ketorolac 10 mg tablet 10 mg PO Q6H PRN (Reason: pain) 5 Days Qty: 10 RF: 0 No Action lisinopril 20 MG tablet 20 mg PO DAILY Qty: 0 RF: 0 gabapentin 800 mg tablet 800 mg PO RF: 0 Referrals: Alva Rogers MD [Primary Care Provider] -
[2020-09-13] MEDS: CYCLOBENZAPRINE 10 MG PREPACK 1 BOTTLE MISC (17:04)
[2020-09-13] MEDS: KETOROLAC 60 MG/2 ML VIAL 30 MG IM (17:04)
[2020-09-13] MEDS: KETOROLAC 10MG PREPACK 1 BOTTLE MISC (17:05)
[2020-09-13 17:16] VITALS: BP 175/99; PULSE 74; RESP 14; O2SAT 97
== END 2020-09-13 17:18 | disposition home or self-care (01) ==
PROVIDERS: Emergency Provider Emergency Medicine; PCP Family Medicine
DX: M54.12 Radiculopathy, cervical region (principal); M25.512 Pain in left shoulder; R91.1 Solitary pulmonary nodule
CPT/HCPCS: 96372; 99281; 99283; J1885

== ENCOUNTER → 2020-10-09 07:07 | Outpatient (CLI) | payer MEDICARE, MEDICAID, SELFPAY | PROVIDERS: PCP Family Medicine; Referring Provider Family Medicine; Visit Provider Family Medicine | DX: M54.12 Radiculopathy, cervical region (principal); Z53.20 Procedure and treatment not carried out because of patient's decision for unspecified reasons ==

== ENCOUNTER 2020-10-10 11:10 | Emergency (ER) | payer MEDICARE, MEDICAID, SELFPAY ==
[2020-10-10] VITALS (10 sets, daily range): BP systolic 202–233; BP diastolic 111–150; PULSE 76–95; RESP 16–34; TEMP 36.9; O2SAT 94–100; BMI 37.2
--- NOTE | 2020-10-10 11:12 | DI.RAD.S_ITS ---
PROCEDURE: XR CHEST 1V INDICATIONS: chest pain TECHNIQUE: One view of the chest was acquired. COMPARISON: [facility], CR, XR CHEST 1V, 08/11/2019, 13:09. [facility], CR, XR CHEST 1V, 04/28/2019, 19:26. FINDINGS: Surgical changes and devices: None. Lungs and pleura: Lungs are clear. No pleural effusions or pneumothorax. Mediastinum: Mediastinal contours appear normal. Heart size is normal. Bones and chest wall: No suspicious bony lesions. Overlying soft tissues appear unremarkable. IMPRESSION: Normal for age, source of current chest pain symptoms is not seen. Dictated by: Guilherme Contreras M.D. on 10/10/2020 at 12:03 Approved by: Guilherme Contreras M.D. on 10/10/2020 at 12:08
--- NOTE | 2020-10-10 11:25 | ED_ITS ---
HPI - Chest Pain General Chief Complaint: Chest Pain Stated Complaint: chest pain this am Time Seen by Provider: 10/10/20 11:13 Source: patient Mode of arrival: Ambulatory Limitations: no limitations History of Present Illness HPI narrative: Patient is a 65-year-old male here for evaluation of left-sided chest discomfort. He was seen in outside facility a couple days ago for the same symptoms. He states he was given fentanyl and ketorolac. His symptoms resolved it returned again this morning. During that visit he states he was diagnosed with pancreatitis based on labs. He was not having any abdominal pain . He has not tried anything for his current symptoms. Not worse with palpation or movement or breathing or eating. Related Data Home Medications Medication Instructions Recorded Confirmed lisinopril 20 mg PO DAILY #0 10/19/17 09/17/20 gabapentin 800 mg PO 06/21/20 09/17/20 Previous Rx's Medication Instructions Recorded carisoprodol 250 mg PO TID PRN #10 tab 09/13/20 tadalafil 5 mg tablet 5 mg PO DAILY #90 tab 09/17/20 Allergies Allergy/AdvReac Type Severity Reaction Status Date / Time Opioids - Morphine Analogues AdvReac Severe very sick Verified 09/17/20 10:08 [OPIOIDS - MORPHINE ANALOGUES] tramadol [TRAMADOL] AdvReac Severe Weakness Verified 09/17/20 10:08 levofloxacin [From Levaquin] AdvReac Intermediate Numbness Verified 09/17/20 10:08 metronidazole [From Flagyl] AdvReac Intermediate Vomiting Verified 09/17/20 10:08 Review of Systems Constitutional Constitutional: Denies fever(s) Cardiovascular Cardiovascular: Reports chest pain and Denies dyspnea Respiratory Respiratory: Denies cough and Denies dyspnea Gastrointestinal Gastrointestinal: Denies abdominal pain, Denies nausea and Denies vomiting Genitourinary Genitourinary: Denies dysuria Genitourinary: Denies dysuria Musculoskeletal Musculoskeletal: Denies myalgias Integumentary/Breasts Skin/Breast: Denies rash Neurologic Neurologic: Denies behavioral changes Psychiatric Psychiatric: Denies behavioral changes Hematologic/Lymphatic Hematologic/Lymphatic: Denies easy bleeding and Denies easy bruising Allergic/Immunologic Allergic/Immunologic: Denies urticaria Patient History Medical History Arthritis Asthma Asthma with exacerbation Bilateral inguinal hernia without obstruction or gangrene Diverticulitis Erectile dysfunction Flu History of migraine headaches Hypertension Kidney stones Lower urinary tract symptoms (LUTS) Pneumonia Pulmonary nodule Umbilical hernia without obstruction and without gangrene Surgical History History of back surgery Hx of arthroscopic knee surgery No pertinent past surgical history Family History Father Coronary artery disease Kidney stones Mother Migraines Social History marital status: number of children: 7 household members: children occupational status: previously employed Smoking Status: Former smoker alcohol intake: former substance use type: does not use caffeine: Yes Smoking Status: Former smoker alcohol intake frequency: other Substance Use Type: does not use Exam Initial Vital Signs Initial Vital Signs: Vital Signs Temperature 98.4 F 10/10/20 11:18 Pulse Rate 95 H 10/10/20 11:18 Respiratory Rate 16 10/10/20 11:18 Blood Pressure 202/111 H 10/10/20 11:18 Pulse Oximetry 100 10/10/20 11:18 Const General: cooperative and comfortable Limitations: mental status not altered HENMT Head: normal to inspection and normocephalic Chest Chest: No crepitus and No tenderness Resp Effort & Inspection: normal respiratory effort Auscultation: clear to auscultation bilaterally Cardio Rate: regular rate Rhythm: regular rhythm GI Inspection: non-distended Palpation: soft and No tender Skin Lesions: no lesions Rashes: no rashes Neuro General: patient alert and patient awake Cognition: normal cognition Speech: speech normal Extrem General: capillary refill normal Psych Appearance: grossly normal and well kempt Course Orders Ordered: ED Orders 10/10/20 11:12 XR chest 1V Stat EKG-12 Lead Stat 10/10/20 11:43 Complete Blood Count AUTO DIFF Stat Comprehensive Metabolic Panel Stat Lipase Stat Partial Thromboplastin Time Stat Prothrombin Time INR Stat Troponin & CK Cardiac Panel Stat Discontinued Medications Ketorolac Tromethamine (Ketorolac 60 Mg/2 Ml Vial) 30 mg IM NOW ONE Stop: 10/10/20 13:20 Vital Signs Vital signs: Vital Signs - 8 hr 10/10/20 11:18 10/10/20 11:26 10/10/20 11:30 Temperature 98.4 F Pulse Rate 95 H 92 H 91 H Respiratory Rate 16 23 34 H Blood Pressure 202/111 H Pulse Oximetry 100 96 97 10/10/20 12:00 10/10/20 12:30 10/10/20 13:00 Temperature Pulse Rate 90 85 76 Respiratory Rate Blood Pressure Pulse Oximetry 96 96 94 MDM - Chest Pain Lab Data Attestation: I reviewed the patient's lab results. Result diagrams: 10/10/20 11:43 10/10/20 11:43 Labs: Lab Results 10/10/20 10/10/20 10/10/20 Range/Units 11:43 11:43 11:43 WBC 5.7 (4.5-11.0) X10^3/uL RBC 5.10 (4.5-5.9) X10^6/uL Hgb 15.2 (13.5-17.5) g/dL Hct 44.8 (41-53) % MCV 87.8 (80-100) fL MCH 29.7 (26-34) PG MCHC 33.9 (30-36) % RDW 13.7 (11.6-14.8) % Plt Count 197 (150-400) X10^3/uL Neut % (Auto) 55.4 (50-75) % Lymph % (Auto) 34.4 (25-40) % Clinton % (Auto) 8.4 (3-14) % Eos % (Auto) 1.2 L (2-4) % Baso % (Auto) 0.6 (0-2) % Neut # (Auto) 3100 (4486-1898) /uL Lymph # (Auto) 2000 (2100-8438) /uL Clinton # (Auto) 500 (0-900) /uL Eos # (Auto) 100 (0-450) /uL Baso # (Auto) 0 (0-100) /uL PT 11.4 (10.1-12.7) SECONDS INR 1.0 (0.9-1.3) APTT 26 L (26.4-36.2) SECONDS Sodium 135 L (137-145) mmol/L Potassium 4.0 (3.4-5.1) mmol/L Chloride 101 (98-107) mmol/L Carbon Dioxide 26 (22-32) mmol/L BUN 23 H (9-20) mg/dL Creatinine 0.94 (0.66-1.25) mg/dL Estimated GFR > 60.0 (>60) mL/min BUN/Creatinine Ratio 24.5 H (6-22) Glucose 130 H (80-110) mg/dL Calcium 9.1 (8.4-10.2) mg/dL Total Bilirubin 0.5 (0.2-1.3) mg/dL AST 100 H (17-59) IU/L ALT 227 H (<50) IU/L Alkaline Phosphatase 51 (38-126) U/L Total Creatine Kinase 49 L (55-170) U/L CK-MB (CK-2) TNP CK-MB (CK-2) Rel Index TNP Troponin I < 0.012 (0.01-0.034) ng/mL Total Protein 7.7 (6.3-8.2) g/dL Albumin 4.6 (3.5-5.0) g/dL Globulin 3.1 (1.7-4.1) g/dL Albumin/Globulin Ratio 1.5 (1.0-2.8) Lipase 142 (23-300) U/L Imaging Data Chest x-ray: Radiologist's Impression: [address] [id number] ReportSigned Patient: Lonnie Finch [facility]#: [id number]: 5Acct:[id number]/Sex: 65 / MDate of Service: 10/10/20Loc: EDAccession Number: [id number] Procedure: XR chest 1V Ordering Provider: Jose Espinoza D.O. PROCEDURE: XR CHEST 1V INDICATIONS: chest pain TECHNIQUE: One view of the chest was acquired. COMPARISON: [facility], CR, XR CHEST 1V, 08/11/2019, 13:09. [facility], CR, XR CHEST 1V, 04/28/2019, 19:26. FINDINGS: Surgical changes and devices: None. Lungs and pleura: Lungs are clear. No pleural effusions or pneumothorax. Mediastinum: Mediastinal contours appear normal. Heart size is normal. Bones and chest wall: No suspicious bony lesions. Overlying soft tissues appear unremarkable. IMPRESSION: Normal for age, source of current chest pain symptoms is not seen. Dictated by: Guilherme Contreras M.D. on 10/10/2020 at 12:03 Approved by: Guilherme Contreras M.D. on 10/10/2020 at 12:08 ECG Data Attestation: I personally reviewed and interpreted this ECG as follows: Prior ECG tracings: not available for review Interpretation: Sinus rhythm Ventricular rate 90 Normal axis Normal QRS Normal QTC No ST T wave changes MDM Narrative Medical decision making narrative: We attempted to obtain records from [facility] however none had been received by the time of the patient's discharge. His workup here for cardiovascular issues is unremarkable. I do have a low suspicion for ACS. Informed him that for any MRI of his cervical spine need to talk with his primary doctor about setting up any sedation prior to an MRI because he was ?unable to tolerate it ?patient's symptoms today are the same that he had a couple days ago. He states he had a CT scan of his chest at that time that was negative for any blood clot or problems with his aorta. Patient stated that he needed refill of his Soma however I informed him that he needed to contact his primary doctor for this. He also stated that he needed a refill of his Valium and again informed him that he needed to contact his primary doctor for this. Will discharge home and have him contact his primary for further evaluation and treatment. He was given return precautions. Discharge Plan Departure Patient Disposition: Home Clinical Impression: Atypical chest pain Instructions: DI for Atypical Chest Pain Activity Restrictions/Additional Instructions: You do need to talk with her primary doctor about any refills of medications that you might need. I also recommend that you talk with your primary doctor about any potential sedation for future MRIs. Return to the emergency department for any new symptoms Prescriptions: No Action lisinopril 20 MG tablet 20 mg PO DAILY Qty: 0 RF: 0 gabapentin 800 mg tablet 800 mg PO RF: 0 carisoprodol 250 mg tablet 250 mg PO TID PRN (Reason: muscle pain) Qty: 10 RF: 0 tadalafil 5 mg tablet 5 mg PO DAILY Qty: 90 RF: 3 Referrals: Alva Rogers MD [Primary Care Provider] -
[2020-10-10 12:21] LABS: Add Manual Diff / Slide Review NO; Basophils Absolute Auto 0 /uL (0-100); Basophils Percent Auto 0.6 % (0-2); Eosinophils Absolute Auto 100 /uL (0-450); Eosinophils Percent Auto 1.2 % (2-4); Hematocrit 44.8 % (41-53); Hemoglobin 15.2 g/dL (13.5-17.5); Lymphocytes Absolute Auto 2000 /uL (1100-4500); Lymphocytes Percent Auto 34.4 % (25-40); Mean Corpuscular HGB Conc 33.9 % (30-36); Mean Corpuscular Hemoglobin 29.7 PG (26-34); Mean Corpuscular Volume 87.8 fL (80-100); Monocytes Absolute Auto 500 /uL (0-900); Monocytes Percent Auto 8.4 % (3-14); Neutrophils Absolute Auto 3100 /uL (1500-7000); Neutrophils Percent Auto 55.4 % (50-75); Platelet Count 197 X10^3/uL (150-400); Red Cell Distribution Width 13.7 % (11.6-14.8); White Blood Cell Count 5.7 X10^3/uL (4.5-11.0)
[2020-10-10 12:26] LABS: Prothrombin Time 11.4 SECONDS (10.1-12.7)
[2020-10-10 12:28] LABS: PTT Partial Thromboplastin Tim 26 SECONDS (26.4-36.2)
[2020-10-10 12:30] LABS: Alanine Aminotransferase 227 IU/L (<50); Albumin 4.6 g/dL (3.5-5.0); Albumin Globulin Ratio 1.5 (1.0-2.8); Alkaline Phosphatase 51 U/L (38-126); Aspartate Aminotransferase 100 IU/L (17-59); BUN Creatinine Ratio 24.5 (6-22); Bilirubin Total 0.5 mg/dL (0.2-1.3); Blood Urea Nitrogen 23 mg/dL (9-20); Calcium 9.1 mg/dL (8.4-10.2); Carbon Dioxide 26 mmol/L (22-32); Chloride 101 mmol/L (98-107); Creatine Kinase 49 U/L (55-170); Estimated Glomerular Filt Rate > 60.0 mL/min (>60); Globulin 3.1 g/dL (1.7-4.1); Glucose 130 mg/dL (80-110); HEMOLYSIS < 15 (0-50); Lipase 142 U/L (23-300); Sodium 135 mmol/L (137-145); Total Protein 7.7 g/dL (6.3-8.2)
[2020-10-10 12:42] LABS: Troponin I < 0.012 ng/mL (0.01-0.034)
[2020-10-10] MEDS: KETOROLAC 60 MG/2 ML VIAL 30 MG IM (13:39)
== END 2020-10-10 13:39 | disposition home or self-care (01) ==
PROVIDERS: Emergency Provider Emergency Medicine; PCP Family Medicine
DX: R07.89 Other chest pain (principal); K85.90 Acute pancreatitis without necrosis or infection, unspecified
CPT/HCPCS: 36415; 71045; 80053; 82550; 83690; 84484; 85025; 85610; 85730; 93005; 93010; 96372; 99284; J1885

== ENCOUNTER 2020-10-15 13:14 | Emergency (ER) | payer MEDICARE, MEDICAID, SELFPAY ==
[2020-10-15 13:21] VITALS: BP 215/109; PULSE 22; RESP 18; TEMP 36.7; O2SAT 99
--- NOTE | 2020-10-15 14:12 | DI.RAD.S_ITS ---
PROCEDURE: XR CHEST 1V INDICATIONS: Chest pain TECHNIQUE: One view of the chest was acquired. COMPARISON: [facility], CR, XR CHEST 1V, 08/11/2019, 13:09. [facility], CR, XR CHEST 1V, 10/10/2020, 11:40. FINDINGS: Surgical changes and devices: None. Lungs and pleura: Lungs are clear. No pleural effusions or pneumothorax. Mediastinum: Mediastinal contours appear normal. Heart size is normal. Bones and chest wall: No suspicious bony lesions. Overlying soft tissues appear unremarkable. IMPRESSION: No acute cardiopulmonary process demonstrated radiographically. Dictated by: Max Marquez M.D. on 10/15/2020 at 14:50 Approved by: Max Marquez M.D. on 10/15/2020 at 14:50
[2020-10-15] MEDS: ACETAMINOPHEN 325 MG TABLET 650 MG PO (14:22)
[2020-10-15] MEDS: KETOROLAC 60 MG/2 ML VIAL 30 MG IM (14:23)
[2020-10-15 14:37] LABS: Add Manual Diff / Slide Review NO; Basophils Absolute Auto 0 /uL (0-100); Basophils Percent Auto 0.8 % (0-2); Eosinophils Absolute Auto 100 /uL (0-450); Hematocrit 45.2 % (41-53); Hemoglobin 14.9 g/dL (13.5-17.5); Lymphocytes Absolute Auto 1600 /uL (1100-4500); Lymphocytes Percent Auto 31.9 % (25-40); Mean Corpuscular HGB Conc 32.9 % (30-36); Mean Corpuscular Hemoglobin 29.2 PG (26-34); Mean Corpuscular Volume 88.9 fL (80-100); Monocytes Absolute Auto 400 /uL (0-900); Monocytes Percent Auto 8.7 % (3-14); Neutrophils Absolute Auto 2800 /uL (1500-7000); Neutrophils Percent Auto 56.6 % (50-75); Platelet Count 188 X10^3/uL (150-400); Red Blood Cell Count 5.09 X10^6/uL (4.5-5.9); Red Cell Distribution Width 13.9 % (11.6-14.8)
[2020-10-15 14:47] LABS: Prothrombin Time 11.3 SECONDS (10.1-12.7)
[2020-10-15 14:49] LABS: PTT Partial Thromboplastin Tim 29 SECONDS (26.4-36.2)
[2020-10-15 14:53] LABS: Alanine Aminotransferase 211 IU/L (<50); Albumin 4.5 g/dL (3.5-5.0); Albumin Globulin Ratio 1.4 (1.0-2.8); Alkaline Phosphatase 58 U/L (38-126); Aspartate Aminotransferase 107 IU/L (17-59); BUN Creatinine Ratio 22.7 (6-22); Bilirubin Total 0.5 mg/dL (0.2-1.3); Blood Urea Nitrogen 17 mg/dL (9-20); Calcium 8.8 mg/dL (8.4-10.2); Carbon Dioxide 27 mmol/L (22-32); Chloride 100 mmol/L (98-107); Creatine Kinase 66 U/L (55-170); Estimated Glomerular Filt Rate > 60.0 mL/min (>60); Globulin 3.2 g/dL (1.7-4.1); Glucose 130 mg/dL (80-110); HEMOLYSIS 18 (0-50); Lipase 136 U/L (23-300); Potassium 4.2 mmol/L (3.4-5.1); Sodium 133 mmol/L (137-145); Total Protein 7.7 g/dL (6.3-8.2)
[2020-10-15 15:04] LABS: Troponin I < 0.012 ng/mL (0.01-0.034)
[2020-10-15 15:23] VITALS: BP 169/95; PULSE 87; RESP 16; O2SAT 98
--- NOTE | 2020-10-15 15:54 | ED_ITS ---
HPI - Recheck/Abnormal Lab/Rx <KIARRA Brizuela - Last Filed: 10/15/20 17:53> General Chief Complaint: Recheck/Abnormal Lab/Rx Stated Complaint: Chest Pains, Rash Time Seen by Provider: 10/15/20 13:58 Source: patient Mode of arrival: Ambulatory Limitations: no limitations History of Present Illness HPI narrative: This is a 65 year male, former smoker, who has past medical history significant for hypertension and currently getting starting done for cervical radiculopathy presents to ED with chief complain of left side chest pain for last 2 weeks which had recurred 2:00 a.m. this morning and noticed rash 2 days ago. Patient was evaluated in emergency room with chest negative cardiac workup done and received Toradol which improved the pain and was discharged to home to follow-up with primary care physician. Patient contributes left chest rash to cardiac sticky leads and states having an allergic reaction. Patient denies dyspnea, fever, cold sweats, nausea or vomiting. He denies abdominal pain. Patient is a really on gabapentin for radiculopathy pain. Patient also r eports had started blood pressure lisinopril and unknown name of other hypertensive medication 2 days ago. Patient states he is not infectious and denies had a history of chicken pox. Related Data Home Medications Medication Instructions Recorded Confirmed lisinopril 20 mg PO DAILY #0 10/19/17 09/17/20 gabapentin 800 mg PO 06/21/20 09/17/20 Previous Rx's Medication Instructions Recorded carisoprodol 250 mg PO TID PRN #10 tab 09/13/20 tadalafil 5 mg tablet 5 mg PO DAILY #90 tab 09/17/20 valacyclovir 1,000 mg PO TID 7 Days #21 tab 10/15/20 Allergies Allergy/AdvReac Type Severity Reaction Status Date / Time Opioids - Morphine Analogues AdvReac Severe very sick Verified 10/15/20 13:26 [OPIOIDS - MORPHINE ANALOGUES] tramadol [TRAMADOL] AdvReac Severe Weakness Verified 10/15/20 13:26 levofloxacin [From Levaquin] AdvReac Intermediate Numbness Verified 10/15/20 13:26 metronidazole [From Flagyl] AdvReac Intermediate Vomiting Verified 10/15/20 13:26 Review of Systems <KIARRA Brizuela - Last Filed: 10/15/20 17:53> Review of Systems Narrative: General: Denies fever, chills, fatigue, malaise, sweats. Respiratory: Denies dyspnea, cough, wheezing, hemoptysis, sputum. Cardiovascular: See HPI Gastrointestinal: Denies nausea, vomiting, abdominal pain, diarrhea, constipation, melena. : Denies dysuria, frequency, incontinence, hematuria, urinary retention. Musculoskeletal: Denies weakness, joint pain or bony pain. Skin: See HPI Neurologic: Denies weakness, headache, numbness, change in speech, confusion, seizures, incoordination. Patient History <KIARRA Brizuela - Last Filed: 10/15/20 17:53> Medical History Arthritis Asthma Asthma with exacerbation Bilateral inguinal hernia without obstruction or gangrene Diverticulitis Erectile dysfunction Flu History of migraine headaches Hypertension Kidney stones Lower urinary tract symptoms (LUTS) Pneumonia Pulmonary nodule Umbilical hernia without obstruction and without gangrene Surgical History History of back surgery Hx of arthroscopic knee surgery No pertinent past surgical history Family History Father Coronary artery disease Kidney stones Mother Migraines Social History marital status: number of children: 7 household members: children occupational status: previously employed Smoking Status: Former smoker alcohol intake: former substance use type: does not use caffeine: Yes Smoking Status: Former smoker alcohol intake frequency: other Substance Use Type: does not use Exam <KIARRA Brizuela - Last Filed: 10/15/20 17:53> Narrative Exam Narrative: GEN: Alert, oriented x 3, well appearing and nourished, and in no acute distress. Head: Normal cephalic, atraumatic. No scalp or temporal tenderness, palpable mass or rash. EYES: Pupils are equal, round, and reactive to light and accommodation. Extraocular muscles are intact bilaterally. There is no subconjunctival hemorrhage, exudate and sclera non-icteric. ENT: Hearing grossly intact. Nose without bleeding, purulent discharge or deviation. Mucous membrane moist, no mucosal lesion. Throat without erythema, tonsillar hypertrophy or exudate. Uvula in midline, airway patent. Neck: Trachea in midline. No JVD, non-tender without lymphadenopathy. No masses or thyroid megaly. Supple, non-tender and no meningeal signs. CARDIAC: Normal regular rate and rhythm without murmurs, gallops, or rubs. No chest wall tenderness. No peripheral edema, cyanosis or pallor. Capillary refill is less than 2 seconds. RESPIRATORY: Lungs are clear to auscultate bilaterally. No cough, wheezes, rales, or rhonchi. No stridor, respiratory distress, increase work of breathing, or accessary muscle used. ABD: Abdomen soft, obese, non-distended. No guarding or rebound tenderness to palpate. Bowel sounds are normal in all 4 quadrants. There is no palpable masses or organomegaly. EXT: Full painless ROM of all extremities with no loss of sensation, strength, effusion or edema. SKIN: Warm, dry, normal color for patient. Several scattered scabbed skin lesions on left upper anterior chest extending near to axilla without warm, erythema or edema adjacent area. No drainage. BACK: Nontender without deformity or crepitance. No flank tenderness. NEUROLOGICAL: Alert and oriented to place, time and person. Sensation and motor function intact bilaterally. No facial droops, dysphasia. Initial Vital Signs Initial Vital Signs: Vital Signs Temperature 98.1 F 10/15/20 13:21 Pulse Rate 22 L 10/15/20 13:21 Respiratory Rate 18 10/15/20 13:21 Blood Pressure 215/109 H 10/15/20 13:21 Pulse Oximetry 99 10/15/20 13:21 Psych Speech and Movement: speech and movement normal Mood: expansive Attitude: other (declined wear mask properly after several requests from RNs) Thought Process: normal Thought Content: no hallucinations and no homicidality Judgment: fair <Soniya Caballero, - Last Filed: 10/16/20 10:23> Initial Vital Signs Initial Vital Signs: Vital Signs Temperature 98.1 F 10/15/20 13:21 Pulse Rate 22 L 10/15/20 13:21 Respiratory Rate 18 10/15/20 13:21 Blood Pressure 215/109 H 10/15/20 13:21 Pulse Oximetry 99 10/15/20 13:21 Scores <KIESHA BrizuelaP - Last Filed: 10/15/20 17:53> GCS Jazmin coma scale eye opening: Spontaneous Jazmin coma scale verbal response: Orientated [place] coma scale motor response: Obey commands [place] coma scale total score: 15 HEART Score Heart Score history: Slightly Suspicious Heart Score EKG: Normal Heart Score Age: > or = 65 years old Heart Score risk factors: 1-2 risk factors Heart Score troponin: < or = to normal limit Heart Score Total: 3 Course <Luis Daniel Riggs DISTANCE LEARNING ADMINISTRATOR - Last Filed: 10/15/20 17:53> Orders Ordered: Discontinued Medications Acetaminophen (Acetaminophen 325 Mg Tablet) 650 mg PO NOW ONE Stop: 10/15/20 14:15 Last Admin: 10/15/20 14:22 Dose: 650 mg Documented by: ROCIO Ketorolac Tromethamine (Ketorolac 60 Mg/2 Ml Vial) 30 mg IM NOW ONE Stop: 10/15/20 14:15 Last Admin: 10/15/20 14:23 Dose: 30 mg Documented by: ROCIO Valacyclovir HCl (Valacyclovir 500 Mg Tablet) 1,000 mg PO NOW ONE Stop: 10/15/20 15:44 Last Admin: 10/15/20 15:59 Dose: 1,000 mg Documented by: MATHIEU Vital Signs Vital signs: Vital Signs - 8 hr 10/15/20 13:21 10/15/20 15:23 Temperature 98.1 F Pulse Rate 22 L 87 Respiratory Rate 18 16 Blood Pressure 215/109 H 169/95 H Pulse Oximetry 99 98 <Soniya Caballero DO - Last Filed: 10/16/20 10:23> Orders Ordered: Discontinued Medications Acetaminophen (Acetaminophen 325 Mg Tablet) 650 mg PO NOW ONE Stop: 10/15/20 14:15 Last Admin: 10/15/20 14:22 Dose: 650 mg Documented by: ROCIO Ketorolac Tromethamine (Ketorolac 60 Mg/2 Ml Vial) 30 mg IM NOW ONE Stop: 10/15/20 14:15 Last Admin: 10/15/20 14:23 Dose: 30 mg Documented by: ROCIO Valacyclovir HCl (Valacyclovir 500 Mg Tablet) 1,000 mg PO NOW ONE Stop: 10/15/20 15:44 Last Admin: 10/15/20 15:59 Dose: 1,000 mg Documented by: MATHIEU Vital Signs Vital signs: Vital Signs - 8 hr 10/15/20 13:21 10/15/20 15:23 Temperature 98.1 F Pulse Rate 22 L 87 Respiratory Rate 18 16 Blood Pressure 215/109 H 169/95 H Pulse Oximetry 99 98 MDM - Recheck/Abnormal Lab/Rx <KIARRA Brizuela - Last Filed: 10/15/20 17:53> Differential Diagnosis Differential diagnosis: Likely other (ACS, allergic reaction, shingles, costochondritis) Medical Records Attestation: I reviewed the patient's medical records. Lab Data Attestation: I reviewed the patient's lab results. Result diagrams: 10/15/20 14:29 10/15/20 14:29 Labs: Lab Results 10/15/20 10/15/20 10/15/20 Range/Units 14:29 14:29 14:29 WBC 5.0 (4.5-11.0) X10^3/uL RBC 5.09 (4.5-5.9) X10^6/uL Hgb 14.9 (13.5-17.5) g/dL Hct 45.2 (41-53) % MCV 88.9 (80-100) fL MCH 29.2 (26-34) PG MCHC 32.9 (30-36) % RDW 13.9 (11.6-14.8) % Plt Count 188 (150-400) X10^3/uL Neut % (Auto) 56.6 (50-75) % Lymph % (Auto) 31.9 (25-40) % [place] % (Auto) 8.7 (3-14) % Eos % (Auto) 2.0 (2-4) % Baso % (Auto) 0.8 (0-2) % Neut # (Auto) 2800 (4093-6114) /uL Lymph # (Auto) 1600 (7255-9795) /uL [place] # (Auto) 400 (0-900) /uL Eos # (Auto) 100 (0-450) /uL Baso # (Auto) 0 (0-100) /uL PT 11.3 (10.1-12.7) SECONDS INR 1.0 (0.9-1.3) APTT 29 (26.4-36.2) SECONDS Sodium 133 L (137-145) mmol/L Potassium 4.2 (3.4-5.1) mmol/L Chloride 100 (98-107) mmol/L Carbon Dioxide 27 (22-32) mmol/L BUN 17 (9-20) mg/dL Creatinine 0.75 (0.66-1.25) mg/dL Estimated GFR > 60.0 (>60) mL/min BUN/Creatinine Ratio 22.7 H (6-22) Glucose 130 H (80-110) mg/dL Calcium 8.8 (8.4-10.2) mg/dL Total Bilirubin 0.5 (0.2-1.3) mg/dL AST 107 H (17-59) IU/L ALT 211 H (<50) IU/L Alkaline Phosphatase 58 (38-126) U/L Total Creatine Kinase 66 (55-170) U/L CK-MB (CK-2) TNP CK-MB (CK-2) Rel Index TNP Troponin I < 0.012 (0.01-0.034) ng/mL Total Protein 7.7 (6.3-8.2) g/dL Albumin 4.5 (3.5-5.0) g/dL Globulin 3.2 (1.7-4.1) g/dL Albumin/Globulin Ratio 1.4 (1.0-2.8) Lipase 136 (23-300) U/L Imaging Data Chest x-ray: Radiologist's Impression: [address] [id number] ReportSigned Patient: Lonnie Finch [facility]#: [id number]: 5Acct:[id number]/Sex: 65 / MDate of Service: 10/15/20Loc: EDAccession Number: [id number] Procedure: XR chest 1V Ordering Provider: Luis Daniel Riggs PROCEDURE: XR CHEST 1V INDICATIONS: Chest pain TECHNIQUE: One view of the chest was acquired. COMPARISON: [facility], CR, XR CHEST 1V, 08/11/2019, 13:09. [facility], , XR CHEST 1V, 10/10/2020, 11:40. FINDINGS: Surgical changes and devices: None. Lungs and pleura: Lungs are clear. No pleural effusions or pneumothorax. Mediastinum: Mediastinal contours appear normal. Heart size is normal. Bones and chest wall: No suspicious bony lesions. Overlying soft tissues appear unremarkable. IMPRESSION: No acute cardiopulmonary process demonstrated radiographically. Dictated by: Max Marquez M.D. on 10/15/2020 at 14:50 Approved by: Max Marquez M.D. on 10/15/2020 at 14:50 ECG Data Attestation: I personally reviewed and interpreted this ECG as follows: Prior ECG tracings: available for review Interpretation: Sinus rhythm rate at 84. Normal [place]. VT interval 84, QRS duration, QT/QTC 375/[address] changes Similar to previous EKGs MDM Narrative Medical decision making narrative: This is a 65-year-old male who has past medical history significant for hypertension presents to ED with chief complain of ongoing chest pain for last 2 weeks with now developing rash on anterior left chest wall. Patient was evaluated 5 days ago for chest pain which was similar w ithout the rash with negative cardiac workup. Patient was hypertensive upon arrival to ED but states is in severe discomfort and usually he has elevated blood pressure with this. EKG sinus rhythm without acute ST changes. Chest x- ray no acute findings. Cardiac enzymes were negative. Unremarkable CBC and coagulation. Mild hyponatremia of 133. Mild elevated glucose of 130 and AST (107) and ALT (211) which is similar to 5 days ago. Heart score 3. Patient has been having similar pain ongoing for last 2 weeks with multiple cardiac workup done from [facility] and [facility] ED, repeat cardiac enzyme deferred at this time. Patient was medicated with IM Toradol and Tylenol which improved pain and it also reflected in improved blood pressure. Although, patient denies previous history of chickenpox, not quite sure if this is accurate finding. Patient emphasizly stating I'm not infectious. I am suspicious for shingles this point with physical findings of of rash even though the rash does not appears to be the typical shingles like rash. Patient started on antiviral medication and discharged to home with 7 day course. Patient currently takes gabapentin for other neuropathic pain. Patient advised to add Tylenol and or Motrin as needed for discomfort and to continue with his high blood pressure medications. He has on initial appointment with a new PCP tomorrow that he is planning to follow-up. Return precautions were discussed with patient and patient verbalized understanding and agreement with treatment plan. <Soniya Caballero, DO - Last Filed: 10/16/20 10:23> Lab Data Labs: Lab Results 10/15/20 10/15/20 10/15/20 Range/Units 14:29 14:29 14:29 WBC 5.0 (4.5-11.0) X10^3/uL RBC 5.09 (4.5-5.9) X10^6/uL Hgb 14.9 (13.5-17.5) g/dL Hct 45.2 (41-53) % MCV 88.9 (80-100) fL MCH 29.2 (26-34) PG MCHC 32.9 (30-36) % RDW 13.9 (11.6-14.8) % Plt Count 188 (150-400) X10^3/uL Neut % (Auto) 56.6 (50-75) % Lymph % (Auto) 31.9 (25-40) % [place] % (Auto) 8.7 (3-14) % Eos % (Auto) 2.0 (2-4) % Baso % (Auto) 0.8 (0-2) % Neut # (Auto) 2800 (8917-1048) /uL Lymph # (Auto) 1600 (5847-9546) /uL [place] # (Auto) 400 (0-900) /uL Eos # (Auto) 100 (0-450) /uL Baso # (Auto) 0 (0-100) /uL PT 11.3 (10.1-12.7) SECONDS INR 1.0 (0.9-1.3) APTT 29 (26.4-36.2) SECONDS Sodium 133 L (137-145) mmol/L Potassium 4.2 (3.4-5.1) mmol/L Chloride 100 (98-107) mmol/L Carbon Dioxide 27 (22-32) mmol/L BUN 17 (9-20) mg/dL Creatinine 0.75 (0.66-1.25) mg/dL Estimated GFR > 60.0 (>60) mL/min BUN/Creatinine Ratio 22.7 H (6-22) Glucose 130 H (80-110) mg/dL Calcium 8.8 (8.4-10.2) mg/dL Total Bilirubin 0.5 (0.2-1.3) mg/dL AST 107 H (17-59) IU/L ALT 211 H (<50) IU/L Alkaline Phosphatase 58 (38-126) U/L Total Creatine Kinase 66 (55-170) U/L CK-MB (CK-2) TNP CK-MB (CK-2) Rel Index TNP Troponin I < 0.012 (0.01-0.034) ng/mL Total Protein 7.7 (6.3-8.2) g/dL Albumin 4.5 (3.5-5.0) g/dL Globulin 3.2 (1.7-4.1) g/dL Albumin/Globulin Ratio 1.4 (1.0-2.8) Lipase 136 (23-300) U/L Discharge Plan Departure Patient Disposition: Home Clinical Impression: Atypical chest pain Shingles Qualifiers: Herpes zoster complications: without complications Qualified Code(s): B02.9 - Zoster without complications Instructions: DI for Shingles, DI for Atypical Chest Pain Activity Restrictions/Additional Instructions: You have been diagnosed with [atypical chest pain. Cardiac enzymes negative. C hest pain associated with rash that developed 2 days ago likely shingles. You were treated 1st dose Valacycloir in ED. please take it 3 times a day for next 7 days. Continue to take your own gabapentin and you can add [id number] Tylenol and or Motrin as needed for discomfort.]. What to do: *Take your medications as directed. Please continue with your blood pressure medications. Your blood pressure has improved during ED stay. *Follow up with your primary care provider tomorrow as scheduled. Let them know you were seen in the ED and that we asked you to be seen in follow up. *Return to ED if you have any new, worsening, or concerning symptoms, such as [worsening pain, different type of chest pain, difficulty breathing, near syncope, fever, increasing redness/swelling/warmth around rash on the chest or any acute concerns.]. Prescriptions: New valacyclovir 1 gram tablet 1,000 mg PO TID 7 Days Qty: 21 RF: 0 No Action lisinopril 20 MG tablet 20 mg PO DAILY Qty: 0 RF: 0 gabapentin 800 mg tablet 800 mg PO RF: 0 carisoprodol 250 mg tablet 250 mg PO TID PRN (Reason: muscle pain) Qty: 10 RF: 0 tadalafil 5 mg tablet 5 mg PO DAILY Qty: 90 RF: 3 Referrals: Alva Rogers MD [Primary Care Provider] - <Soniya Caballero DO - Last Filed: 10/16/20 10:23> Cosign ED Attending Skyature Attestation: I was immediately available in the department for consultation. Documentation has been reviewed. I agree with assessment and plan.
[2020-10-15] MEDS: valACYclovir 500 MG TABLET 1000 MG PO (15:59)
== END 2020-10-15 16:09 | disposition home or self-care (01) ==
PROVIDERS: Emergency Provider Nurse Practitioner Family; PCP Family Medicine
DX: R07.89 Other chest pain (principal); B02.9 Zoster without complications; R21 Rash and other nonspecific skin eruption; I10 Essential (primary) hypertension; E87.1 Hypo-osmolality and hyponatremia
CPT/HCPCS: 36415; 71045; 80053; 82550; 83690; 84484; 85025; 85610; 85730; 93005; 96372; 99284; J1885

== ENCOUNTER 2020-11-05 11:00 | Emergency (ER) | payer OTHER, SELFPAY ==
[2020-11-05] VITALS (7 sets, daily range): BP systolic 156; BP diastolic 98; PULSE 80–88; RESP 11–22; TEMP 36.3; O2SAT 96–98; BMI 37.2
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
[2020-11-05 11:29] LABS: Add Manual Diff / Slide Review NO; Basophils Absolute Auto 0 /uL (0-100); Basophils Percent Auto 0.9 % (0-2); Eosinophils Absolute Auto 100 /uL (0-450); Eosinophils Percent Auto 2.9 % (2-4); Hematocrit 40.4 % (41-53); Hemoglobin 13.8 g/dL (13.5-17.5); Lymphocytes Absolute Auto 1100 /uL (1100-4500); Lymphocytes Percent Auto 34.7 % (25-40); Mean Corpuscular HGB Conc 34.2 % (30-36); Mean Corpuscular Hemoglobin 29.9 PG (26-34); Mean Corpuscular Volume 87.6 fL (80-100); Monocytes Absolute Auto 300 /uL (0-900); Monocytes Percent Auto 8.6 % (3-14); Neutrophils Absolute Auto 1700 /uL (1500-7000); Neutrophils Percent Auto 52.9 % (50-75); Platelet Count 168 X10^3/uL (150-400); Red Blood Cell Count 4.61 X10^6/uL (4.5-5.9); Red Cell Distribution Width 14.4 % (11.6-14.8); White Blood Cell Count 3.2 X10^3/uL (4.5-11.0)
--- NOTE | 2020-11-05 11:33 | PC.NURSE ---
real estate accountant at red phone to see patient. patient in x ray, nurse notified. [place] waiting in [facility] by red phone until appropriate to see patient
[2020-11-05 11:45] LABS: BUN Creatinine Ratio 14.5 (6-22); Blood Urea Nitrogen 9 mg/dL (9-20); Calcium 9.2 mg/dL (8.4-10.2); Carbon Dioxide 28 mmol/L (22-32); Chloride 99 mmol/L (98-107); Estimated Glomerular Filt Rate > 60.0 mL/min (>60); Glucose 189 mg/dL (80-110); HEMOLYSIS 34 (0-50); Potassium 4.3 mmol/L (3.4-5.1); Sodium 133 mmol/L (137-145)
[2020-11-05] MEDS: KETOROLAC 60 MG/2 ML VIAL 15 MG IV (12:44)
== END 2020-11-05 13:26 | disposition home or self-care (01) ==
PROVIDERS: Emergency Provider Emergency Medicine; PCP Family Medicine
DX: M25.512 Pain in left shoulder (principal); M54.2 Cervicalgia; S09.93XA Unspecified injury of face, initial encounter; M54.5 Low back pain; V89.2XXA Person injured in unspecified motor-vehicle accident, traffic, initial encounter
CPT/HCPCS: 36415; 71045; 72040; 73030; 80048; 85025; 93005; 93010; 96374; 99284; J1885

== ENCOUNTER → 2020-12-04 11:42 | Outpatient (CLI) | payer MEDICARE, MEDICAID, SELFPAY ==
[2020-12-04 12:33] LABS: Add Manual Diff / Slide Review NO; Basophils Absolute Auto 0 /uL (0-100); Basophils Percent Auto 0.7 % (0-2); Eosinophils Absolute Auto 100 /uL (0-450); Hematocrit 42.5 % (41-53); Hemoglobin 14.5 g/dL (13.5-17.5); Lymphocytes Absolute Auto 1300 /uL (1100-4500); Lymphocytes Percent Auto 29.1 % (25-40); Mean Corpuscular Hemoglobin 30.2 PG (26-34); Mean Corpuscular Volume 88.6 fL (80-100); Monocytes Absolute Auto 400 /uL (0-900); Monocytes Percent Auto 8.1 % (3-14); Neutrophils Absolute Auto 2700 /uL (1500-7000); Neutrophils Percent Auto 60.1 % (50-75); Platelet Count 174 X10^3/uL (150-400); Red Cell Distribution Width 15.2 % (11.6-14.8); White Blood Cell Count 4.5 X10^3/uL (4.5-11.0)
[2020-12-04 12:50] LABS: BUN Creatinine Ratio 18.6 (6-22); Blood Urea Nitrogen 13 mg/dL (9-20); Calcium 9.8 mg/dL (8.4-10.2); Carbon Dioxide 26 mmol/L (22-32); Chloride 98 mmol/L (98-107); Estimated Glomerular Filt Rate > 60.0 mL/min (>60); Glucose 115 mg/dL (80-110); HEMOLYSIS < 15 (0-50); Potassium 4.7 mmol/L (3.4-5.1); Sodium 133 mmol/L (137-145)
[2020-12-04 13:17] LABS: Prostate Specific Antigen 0.447 ng/mL (0.10-4.00)
== END ==
PROVIDERS: Specialist; PCP Family Medicine; Referring Provider Orthopaedic Surgery Orthopaedic Surgery of the Spine; Visit Provider Orthopaedic Surgery Orthopaedic Surgery of the Spine
DX: Z01.812 Encounter for preprocedural laboratory examination (principal); N40.0 Benign prostatic hyperplasia without lower urinary tract symptoms
CPT/HCPCS: 36415; 80048; 84153; 85025

== ENCOUNTER → 2020-12-13 12:20 | Outpatient (CLI) | payer MEDICARE, MEDICAID, SELFPAY ==
[2020-12-13 12:54] LABS: COVID19 -Nasal RAPID Negative (Negative)
== END ==
PROVIDERS: PCP Family Medicine; Visit Provider Physician Assistant
DX: Z20.822 Contact with and (suspected) exposure to COVID-19 (principal)
CPT/HCPCS: 87635

== ENCOUNTER 2020-12-14 10:55 | Day surgery (SDC) | payer MEDICARE, MEDICAID, SELFPAY ==
[2020-12-14] VITALS (14 sets, daily range): BP systolic 152–181; BP diastolic 88–107; PULSE 84–91; RESP 12–20; TEMP 36.1–36.8; O2SAT 94–99; BMI 37.2
--- NOTE | 2020-12-14 | DI.RAD.S_ITS ---
PROCEDURE: XR CERVICAL SPINE 2V OR 3V INDICATIONS: C5-6, C6-7 ACDF TECHNIQUE: 2 view(s) of the cervical spine were acquired. COMPARISON: [facility], , XR CERVICAL SPINE 2V OR 3V, 11/05/2020, 11:30. FINDINGS: Bones: Fluoroscopic intraoperative views ACDF were performed. Soft tissues: No prevertebral soft tissue swelling. IMPRESSION: Fluoroscopic intraoperative ACDF has been performed. Dictated by: Leland Davalos M.D. on 12/14/2020 at 16:52 Approved by: Leland Davalos M.D. on 12/14/2020 at 16:53
[2020-12-14] MEDS: LACTATED RINGERS 1,000 ML 100 ML IV ×2 (11:45→15:01)
[2020-12-14] MEDS: ACETAMINOPHEN 325 MG TABLET 975 MG PO (11:45)
--- NOTE | 2020-12-14 13:09 | PM.PREOP ---
Pre-operative Note COVID-19 COVID-19 status: Negative Result date/Date tested (Pos, Neg/Pending): 12/12/20 Interval Note History & Physical reviewed/Exam performed by Physician: Yes Changes to H&P: No
[2020-12-14] MEDS: CEFAZOLIN 2 GM/100 ML FROZ.PIGGY IV ×2 (13:37→21:46)
[2020-12-14] MEDS: BUPIVACAINE LIPOSOME 266 MG/20 ML VIAL INJ (14:02)
[2020-12-14] MEDS: BUPIVACAINE 0.25% W/ EPI (PF) 10 ML VIAL 20 ML INJ (14:03)
--- NOTE | 2020-12-14 14:07 | SUR.OPER ---
Supine, head on gel donut. Arms padded with gel pads, tucked at sides, towel roll under shoulders. Safety belt at thigh. Legs uncrossed.
--- NOTE | 2020-12-14 16:48 | PM.OP.1 ---
Operative Date/Time/Diagnoses Date of procedure: 12/12/20 Time of procedure: 13:48 Pre-op diagnosis: 1. C5-6, C6-7 spondylosis with radiculopathy 2. C5-6, C6-7 spinal stenosis Post-op diagnosis: same Procedure & Clinicians Procedure: 1. C5-6 C6-7 anterior cervical diskectomy and fusion 2. C5-6 C6-7 anterior interbody cage placement 3. C5-6 C6-7 anterior instrumentation with plate and screw placement in C5-C6 and C7 vertebrae 4. Utilization of microsurgical technique and operating microscope Same procedure as scheduled: Yes Indications: Patient has been having chronic neck pain and worsening cervical radiculopathy. Patient failed multiple conservative management with worsening pain weakness and numbness in her upper extremity. Patient has been having difficulty performing activity of daily living. After discussing risks benefits of treatment options, patient elected proceed with surgery. Surgeon: Iain Franklin Program Manager Environmental Planning: Guilherme Silva Click Yes if Unassisted: No Anesthesia Type: General Operative Notes Closure Type: primary Specimen(s): none sent Prosthetic devices, grafts, tissues, transplants, or devices: Globus Extend plate, PEEK cages Estimated Blood Loss (mL): 10 Blood products transfused: none Procedure in detail: Patient was seen in the preoperative area. Risks and benefits of the surgery was discussed with the patient. Operative consent was obtained and placed in the chart. Patient was then taken to the operative room. Prophylactic antibiotic was given less than 0.5 hr prior to skin incision. General anesthesia was administered. Patient was placed into a supine position on her radiolucent table. Bilateral shoulders were taped down to allow proper C-arm imaging. Anterior cervical area was prepped and draped in a sterile fashion. Time-out was performed at this time. Using lateral C-arm imaging, the level between C5 and C7 was identified and marked on patient's neck. A oblique incision from midline towards medial border of sternocleidomastoid muscle was made. The platysma muscle was incised in line with skin incision. Metzenbaum scissor was used to develop the plane between the medial border of sternocleidomastoid d and the strap muscles medially. The carotid sheath and its contents were identified and protected behind the hand-held retractor during the entire case. The plane between the carotid sheath and strap muscles was developed with Metzenbaum scissors. Dissection was made down to the level of the anterior cervical fascia. Longus colli muscle was incised on the anterior aspect of vertebral bodies bilaterally from C5-C7. Spinal needle was placed into the C5-6 disc space and confirmed with lateral C-arm imaging. Patient has large shoulders which made lateral x-ray imaging difficult to confirm the levels. Multiple images were taken with a spinal needle to confirm the C5-6 disc space prior to proceeding with the diskectomy and fusion surgery. Using microsurgical technique and operative microscope, anterior cervical diskectomy was performed at C5-6 and C6-7 level. This was done by removing the disc material, removing the anterior and posterior osteophytes posterior longitudinal ligaments along with performing bilateral foraminotomies at both levels. Patient was found to have severe central and foraminal stenosis at both levels. Patient's stenosis was fully decompressed after decompression was completed. After the diskectomy was completed, 2 anterior interbody cages were obtained. The cages were packed with globus via cell bone grafting material. One cage each along with the bone grafting material was then packed into the interbody spaces from C5-C7 with one cage into each interbody level. Patient has large anterior osteophytes the front aspect of vertebral bodies of C5-C6 and C7. Leksell rongeur was used to remove the anterior osteophytes prior to plate placement. After the cages were placed, the anterior cervical plate was stabilized to the C5-C7 vertebrae using 2 screws at each each level. Total 6 screws were placed. After confirming placement of the hardware with AP and lateral C-arm imaging, the screws were locked into the plate using the locking mechanism and torque limiting screwdriver. After the hardware was placed and confirmed with AP and lateral C-arm imaging, the wound was irrigated with sterile normal saline. The platysma muscle and the subcutaneous tissue was closed with 2-0 Vicryl. The skin was closed with 4-0Monocryl and Steri-Strips. Patient tolerated the procedure well. Patient was transferred recovery room in stable condition. There were no complications. Complications: none Post-operative Condition: stable Disposition: PACU Plan for aftercare: Admit to inpatient hospital
[2020-12-14] MEDS: OXYCODONE IR 5 MG TABLET PO ×2 (17:20→17:52)
[2020-12-14] MEDS: hydrOXYzine pamoate 25 MG CAPSULE PO (17:20)
[2020-12-14] MEDS: ONDANSETRON 4 MG/2 ML INJ IV (17:20)
[2020-12-14] MEDS: SODIUM CHLORIDE 0.9% 1,000 ML 100 ML IV (18:45)
[2020-12-14] MEDS: SENNOSIDES 8.6 MG TABLET 17.2 MG PO (20:53)
[2020-12-14] MEDS: HYDROCODONE/ACET 5/325 TABLET 2 TAB PO (20:53)
[2020-12-14] MEDS: GABAPENTIN 400 MG CAPSULE 800 MG PO (20:54)
[2020-12-14] MEDS: DOCUSATE 100 MG CAPSULE PO (20:54)
[2020-12-15 00:10] VITALS: BP 150/98; PULSE 89; RESP 18; TEMP 36.4; O2SAT 97
[2020-12-15 04:00] VITALS: BP 165/94; PULSE 96; RESP 18; TEMP 36.8; O2SAT 98
[2020-12-15] MEDS: CEFAZOLIN 2 GM/100 ML FROZ.PIGGY IV (05:30)
[2020-12-15] MEDS: HYDROMORPHONE 0.5 MG INJ IV (06:11)
[2020-12-15 08:00] VITALS: BP 162/98; PULSE 89; RESP 18; TEMP 36.4; O2SAT 97
[2020-12-15] MEDS: AMLODIPINE 5 MG TABLET PO (08:33)
[2020-12-15 08:34] VITALS: BP 162/98
[2020-12-15] MEDS: GABAPENTIN 400 MG CAPSULE 800 MG PO (08:34)
[2020-12-15] MEDS: DOCUSATE 100 MG CAPSULE PO (08:34)
[2020-12-15] MEDS: lisinopriL 20 MG TABLET PO (08:34)
[2020-12-15] MEDS: HYDROCODONE/ACET 5/325 TABLET 2 TAB PO (08:34)
--- NOTE | 2020-12-15 09:30 | PT.IIE ---
Current Diagnoses Other spondylosis with radiculopathy, cervical region (12/14/20) Spinal stenosis, cervical region (12/14/20) Surgery Performed Operation Date: 12/14/20 12:15 Actual Procedures p C5-6,C6-7 ACDF with anterior instrumentation - Iain Franklin MD Surgical History (Last Reviewed 12/15/20 @ 10:25 by Gary Genao PA-C) History of back surgery Hx of arthroscopic knee surgery No pertinent past surgical history Medical History (Last Reviewed 12/15/20 @ 10:25 by Gary Genao PA-C) Arthritis Asthma Asthma with exacerbation Bilateral inguinal hernia without obstruction or gangrene Diverticulitis Erectile dysfunction Flu History of migraine headaches Hypertension Kidney stones Lower urinary tract symptoms (LUTS) Pneumonia Pulmonary nodule Umbilical hernia without obstruction and without gangrene Physical Therapy Inpatient Evaluation/Re-Eval M1 PT/OT-IP Prior Functional Status Start: 12/15/20 13:18 Freq: NEEDED Status: Active Protocol: Document 12/15/20 09:30 AB (Rec: 12/15/20 13:30 [facility] Medical Review Prior Functional Status Medical History Reviewed Yes Communication able to make needs known Mobility and Gait pt stated that he is independent with all mobilities and ambualtion without AD Social History Household Members children Living Arrangements House Number of Floors (Floors) One Floor Number of Stairs To Enter/Railing? 3 steps R rail ascending Home Environment High Toilet,Tub/Shower Home Equipment Hand Held Shower,Grab Bars In Shower M2 PT-IP Current Condition Start: 12/15/20 13:18 Freq: NEEDED Status: Active Protocol: Document 12/15/20 09:30 AB (Rec: 12/15/20 13:30 [facility] Physical Therapy Current Condition Current Condition Evaluation Date 12/15/20 Treatment Diagnosis [id number]; difficulty in walking Precautions Cervical Spine Precautions Soft Collar for Comfort,No Heavy Lifting,Log Roll M3 PT-IP Subjective Start: 12/15/20 13:18 Freq: NEEDED Status: Active Protocol: Document 12/15/20 09:30 AB (Rec: 12/15/20 13:30 AB [id number]) Subjective Physical Therapy Visit Type Type Initial Evaluation Visit Start Time 09:30 Visit Stop Time 09:52 Total Visit Minutes 22 Number of PUBLIC HEALTH TECHNICIAN Visits 0 Physical Therapy Visit Comments Patient Comments pt is agreeable to do PT Therapy Pain Assessment Pain When Pain Assessed At Rest Pain Present Pain Present Pain Reported Location Anterior Neck Intensity 3 Scale Used Numeric (0 - 10) Pain Management Techniques Distraction,Modification of Treatment,Re-positioning, Timing of Activity with Medications M4 PT-IP Mobility and Gait Start: 12/15/20 13:18 Freq: NEEDED Status: Active Protocol: Document 12/15/20 09:30 AB (Rec: 12/15/20 13:30 AB [email or web address]) PT-Bed Mobility Assessment Rolling Type of Rolling Log Rolling Level of Assist Independent Supine to Sit Supine to Sit Independent Sit to Supine Sit to Supine Independent Scooting Scooting to Edge of Bed Independent Scooting Up and Down in Bed Independent PT-Transfer Assessment Sit to and From Stand Sit to and from Stand Independent Transfers Transfer Destination Bed,Chair Transfer Ability Level of Assist Independent Comments Mobility Comments pt sitting on chair. educated on cervical precautions and log roll bed mobility. pt sit to stand from chair mod I and ambulated to the bed initial supervision but able to complete without LOB without AD. completed log roll bed mobility supine<>sit mod I. educated on soft collar management and completed without assistance needed. pt agreed to ambulate in the hallway but refused use of mask. stated that he cannot breath well with mask and he gets anxious but agreed to have face shield. asked charge nurse and stated that pt can just use faceshield instead of mask. pt ambulated 125 ft to the stair without AD mod I. demonstrated up/down steps x 2 sets without use of rails mod I. pt ambulated in room mod I without AD. pt sat on chair. call light and table within reach. Gait Assessment Gait Gait Assistance Required: Independent Distance (Feet) 125 Assistive Devices Assistive Device None,Gait Belt Orthotic/Prosthetic Devices or Brace: Yes Factors Limiting Gait Function Factors Limiting Gait Function Limited Range of Motion,Pain Stair Climbing Assessment Evaluation Level of Assist On Stairs Independent Devices Stair Climbing Assistive Devices None Technique/Endurance Stair Climbing Direction Ascend and Descend Stair Climbing Technique Step to Step Number of Steps Climbed 3 Query Text: Stair Climbing Set # Repetitions (reps) 2 PT-Balance Assessment Sitting Balance and Reactions Static Sitting Balance Ability Normal Dynamic Sitting Balance Ability Normal Standing Balance and Reactions Static Standing Balance Ability Good Dynamic Standing Balance Ability Good Device Used without AD M5 PT-IP Objective Assessments Start: 12/15/20 13:18 Freq: NEEDED Status: Active Protocol: Document 12/15/20 09:30 AB (Rec: 12/15/20 13:30 AB [email or web address]) Orientation Orientation/Cognition Level of Alertness Alert Orientation Name,Age,Birthday,Month,Date, Year,Day of Week,Place, Situation Safety Awareness Understands Safety Issues Memory Description No Deficits Noted Gross Range of Motion Lower Extremity ROM Assessment Within Functional Limits Strength Lower Extremity Strength Assessment Within Functional Limits Coordination Assessment Gross Coordination Gross Coordination WNL Muscle Tone Muscle Tone WNL Yes M6 PT-IP Treatment Start: 12/15/20 13:18 Freq: NEEDED Status: Active Protocol: Document 12/15/20 09:30 AB (Rec: 12/15/20 13:30 AB [email or web address]) Physical Therapy Treatment Education Education Provided Precautions,Post-Op Packet, Safety M7 PT-IP Assessment and Plan Start: 12/15/20 13:18 Freq: NEEDED Status: Active Protocol: Document 12/15/20 09:30 AB (Rec: 12/15/20 13:30 AB [email or web address]) PT Summary Assessment and Plan Potential Rehabilitation Potential Good Status of Condition at Evaluation Stable Summary Impairments Pain,ROM,Strength,Balance, Coordination,Sensation,Tone, Cognition,Bed Mobility, Transfers,Gait,Activity Tolerance Progress Towards Goals Safe For Discharge Assessment Summary PT eval completed and is mod I with all mobilities. no further PT intervention indicated at this time. pt plans to go home and has his family at home to assist him as needed. pt safe to go home . Frequency of Treatment Frequency Of Treatment Discharge Precautions Cervical Spine Precautions Soft Collar for Comfort,No Heavy Lifting,Log Roll Recommendations To Nursing Amount of Assist Needed Independent Discharge Recommendations PT Discharge Recommendations Home Transportation Needs at Discharge Private Vehicle
--- NOTE | 2020-12-15 09:41 | PC.NURSE ---
Addendum entered by Rosana Bailey R.N. 12/15/20 11:02: Patient given discharge instructions regarding medication, f/u appointments, and activity. Patient verbalized understanding. IV removed. Patient discharged via wheelchair with aide assist. Original Note: Patient up to chair this morning, A/O x 4, eating breakfast and drinking fluid without difficulty. Saline locked at this time. Patient voiding. Reports 4-5/10 sternum burning that sometimes radiates to his L clavicle. Denies pain at site of wound. Dressing CDI. Neck brace intact. Patient ambulating independently through the halls. Denies further needs at this time.
--- NOTE | 2020-12-15 10:23 | PM.DS.1 ---
History of Present Illness History of Present Illness Date Patient Seen: 12/15/20 Time Patient Seen: 10:23 Chief complaint: *OPB* Narrative: Patient up walking in halls this morning. Denies fever or chills. No nausea or vomiting. No shortness of breath. Discharge Providers Provider Discharge Date: 12/15/20 Primary care physician: Alva Rogers MD Consults: 12/14/20 18:22 Consult to Occupational Therapy Evaluate & Treat Comment: Physician Instructions: Evaluate and treat Consult to Physical Therapy Evaluate & Treat Comment: Physician Instructions: Evaluate and Treat Discharge provider: Gary Genao PA-C Summary Hospital Course Discharge Diagnosis: C5-6, C6-7 spondylosis with radiculopathy 2. C5-6, C6-7 spinal stenosis Hospital Course: 1. C5-6 C6-7 anterior cervical diskectomy and fusion 2. C5-6 C6-7 anterior interbody cage placement 3. C5-6 C6-7 anterior instrumentation with plate and screw placement in C5-C6 and C7 vertebrae 4. Utilization of microsurgical technique and operating microscope Same procedure as scheduled: Yes Indications: Patient has been having chronic neck pain and worsening cervical radiculopathy. Patient failed multiple conservative management with worsening pain weakness and numbness in her upper extremity. Patient has been having difficulty performing activity of daily living. After discussing risks benefits of treatment options, patient elected proceed with surgery. Surgeon: Iain Franklin Paperhanger And Painter: Guilherme Silva Click Yes if Unassisted: No Anesthesia Type: General Operative Notes Closure Type: primary Specimen(s): none sent Prosthetic devices, grafts, tissues, transplants, or devices: Globus Extend plate, PEEK cages Estimated Blood Loss (mL): 10 Blood products transfused: none Patient admitted to the hospital yesterday for the above-mentioned procedure. Patient consented to the same. Patient taken the operating room underwent cervical fusion. Patient back in his room recovering well as in stable condition. Discharge home today Status at Discharge Cognitive/behavioral status at discharge: at baseline, oriented Functional status at discharge: independent ambulation Overall status at discharge: patient is progressing back to baseline Time Spent with Patient Time spent: Less than 30 minutes Exam Vital Signs (past 8 hours): - 12/15/20 04:00 12/15/20 08:00 12/15/20 08:34 Temperature 98.3 F 97.6 F Pulse Rate 96 H 89 Respiratory Rate 18 18 Blood Pressure 165/94 H 162/98 H 162/98 H Pulse Oximetry 98 97 Oxygen Delivery Method Room Air Narrative Exam Narrative: Patient walking in the cadena in no apparent distress. Cervical collar is in place. Dressing is Clean, dry, intact.. Neurovascular status is intact bilateral upper extremities. [facility] Medical History Arthritis Asthma Asthma with exacerbation Bilateral inguinal hernia without obstruction or gangrene Diverticulitis Erectile dysfunction Flu History of migraine headaches Hypertension Kidney stones Lower urinary tract symptoms (LUTS) Pneumonia Pulmonary nodule Umbilical hernia without obstruction and without gangrene Surgical History History of back surgery Hx of arthroscopic knee surgery No pertinent past surgical history Family History Father Coronary artery disease Kidney stones Mother Migraines Social History marital status: number of children: 7 household members: children occupational status: previously employed Smoking Status: Former smoker alcohol intake: former substance use type: does not use caffeine: Yes Discharge Assessment & Plan Assessment and Plan Assessment: Patient progressing as expected. Plan of Treatment: Discharge home today in stable condition. Discharge Plan Discharge Plan Patient Disposition: Home Discharge orders & Medications Discharge Orders: Discharge (Order); Ordered 12/15/20 Ordered By: Gary Genao Prescriptions: New acetaminophen 325 mg Tablet 650 mg PO Q6HR PRN (Reason: Pain, Mild (1-3)) Qty: 60 RF: 0 docusate sodium [DOK] 100 mg Capsule 100 mg PO BID Qty: 30 RF: 0 hydrocodone-acetaminophen 5-325 mg Tablet 2 tab PO Q4HR PRN (Reason: Pain, Severe (7-10)) Qty: 60 RF: 0 hydroxyzine pamoate 25 mg Capsule 25 mg PO Q4HR PRN (Reason: Nausea And Vomiting) Qty: 30 RF: 0 Continued lisinopril 20 MG tablet 20 mg PO DAILY Qty: 0 RF: 0 amlodipine 5 mg Tablet 5 mg PO DAILY RF: 0 amitriptyline 10 mg Tablet 10 mg PO BEDTIME RF: 0 carisoprodol 250 mg tablet 350 mg PO TID PRN (Reason: muscle pain) RF: 0 gabapentin 800 mg tablet 800 mg PO BID RF: 0 ketorolac 10 mg tablet 10 mg PO Q6H PRN (Reason: pain) Qty: 14 RF: 0 tadalafil 5 mg tablet 5 mg PO DAILY Qty: 90 RF: 3 Follow up/Referrals: Alva Rogers MD [Primary Care Provider] - Iain Franklin MD [Physician] - (2 weeks) Diet/Activity/Treatments Diet: Diet as Tolerated Activity: Limit bending, lifting, twisting. Soft collar for comfort Cold/Heat Therapy: Apply ice as needed Skin/Wound/Dressing Care Report to your healthcare provider any signs of infection, such as:: chills, fever, increased pain, unusual drainage and unusual redness Dressing: Keep clean and dry Visit Report/Discharge Packet Instructions: DI for Anterior Cervical Discectomy and Fusion Stand Alone Forms: Surgery Discharge Discharge Data Primary Care Provider: Alva Rogers Attending Provider: Iain Franklin
--- NOTE | 2020-12-15 10:59 | CM.DANOTE ---
DCP: Case received, EMR reviewed and met with patient. Introduced self and role. Was able to obtain information from patient regarding his baseline activity level prior to surgery, as well as his current living situation. DCP assessment completed with information currently available. Patient is a 65 year old male who admitted yesterday morning to the care of the orthopedic tea. PCP: Dr. Rogers. Payer: confirmed: Medicare/Medicaid. Patient came to the hospital via private vehicle for a surgical procedure. He had C5-6, C6-7 cervical surgery. Patient has history of neck and back pain secondary to spinal stenosis. Met with patient in his room. He was sitting in his chair next to his bed, neck collar in place. He is alert and oriented, pleasant and conversive. He resides in [place] with his son and grand children. He is independent, and retired. He is originally from [facility]. He has not used any DME prior to surgery. 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 P: Patient is to be discharged home today. He will work with P.T. before he goes home. Bertha Knight RN/Crew Leader
== END 2020-12-15 11:03 | disposition home or self-care (01) ==
LOC: OR 10:57 → AC 10:58
PROVIDERS: PCP Family Medicine; Referring Provider Orthopaedic Surgery Orthopaedic Surgery of the Spine; Visit Provider Orthopaedic Surgery Orthopaedic Surgery of the Spine
PROC: (CPT 22551; principal; 2020-12-14 12:15)
DX: M47.22 Other spondylosis with radiculopathy, cervical region (principal); M48.02 Spinal stenosis, cervical region; M25.78 Osteophyte, vertebrae; E66.9 Obesity, unspecified; J45.909 Unspecified asthma, uncomplicated; I10 Essential (primary) hypertension; G43.909 Migraine, unspecified, not intractable, without status migrainosus; Z68.37 Body mass index [BMI] 37.0-37.9, adult
CPT/HCPCS: 22551; 22552; 22853 ×2; 72040; 76000; 82962; 97161; C1776; C9290; J0690; J1100; J1170; J2250; J2274; J2405; J2704; J3010

== ENCOUNTER → 2021-06-05 12:59 | Outpatient (CLI) | payer MEDICARE, MEDICAID, SELFPAY ==
[2020-12-14 19:03] VITALS: BMI 37.2
== END ==
PROVIDERS: PCP Family Medicine; Referring Provider Orthopaedic Surgery Orthopaedic Surgery of the Spine; Visit Provider Orthopaedic Surgery Orthopaedic Surgery of the Spine
DX: M67.912 Unspecified disorder of synovium and tendon, left shoulder (principal); Z53.20 Procedure and treatment not carried out because of patient's decision for unspecified reasons

== ENCOUNTER 2021-09-23 16:10 | Emergency (ER) | payer MEDICARE, MEDICAID, SELFPAY ==
[2020-12-14 19:03] VITALS: BMI 37.2
[2021-09-23 16:16] VITALS: BP 187/105; PULSE 90; RESP 22; TEMP 36.6; O2SAT 96; BMI 27.7
--- NOTE | 2021-09-23 16:29 | PC.NURSE ---
Pt states he can not wear a mask under any circumstances r/t anxiety. He has easy work of breathing, pink/warm/dry, and able to speak in full sentences. Agreeable to waiting in car. Challenged by authority to ask him to wear mask but decided that waiting in the car was preferable. Encoruaged to come back into ED if his shortness/ any other symptoms of breath worsened.
[2021-09-23 17:29] LABS: Adenovirus Not Detected (Not Detect); B. parapertussis Not Detected (Not Detecte); Bordetella pertussis Not Detected (Not Detecte); Chlamydophila pneumoniae Not Detected (Not Detect); Coronavirus 229E Not Detected (Not Detect); Coronavirus HKU1 Not Detected (Not Detect); Coronavirus NL 63 Not Detected (Not Detect); Coronavirus OC43 Not Detected (Not Detect); Human Metapneumovirus Not Detected (Not Detect); Human Rhinovirus/Enterovirus Not Detected (Not Detect); Influenza A Not Detected (Not Detect); Influenza B Not Detected (Not Detect); Mycoplasma pneumoniae Not Detected (Not Detect); Parainfluenza Virus 1 Not Detected (Not Detect); Parainfluenza Virus 2 Not Detected (Not Detect); Parainfluenza Virus 3 Not Detected (Not Detect); Parainfluenza Virus 4 Not Detected (Not Detect); Respiratory Syncytial Virus Not Detected (Not Detect); SARS- CoV-2 Not Detected (Not Detecte)
--- NOTE | 2021-09-23 18:00 | ED_ITS ---
HPI - General Adult General Chief complaint: Shortness of Breath/Dyspnea Stated complaint: COUGH SOB IRREGULAR HEART BEAT Time Seen by Provider: 09/23/21 18:00 Source: patient Mode of arrival: Ambulatory History of Present Illness HPI narrative: 66-year-old gentleman with a history hypertension who presents to the emergency room requesting help with cough and dyspnea but refuses to wear a mask for further evaluation. Related Data Home Medications Medication Instructions Recorded Confirmed lisinopril 20 mg tablet 20 mg PO DAILY #0 10/19/17 12/14/20 gabapentin 800 mg tablet 800 mg PO BID 06/21/20 12/14/20 amitriptyline 10 mg tablet 10 mg PO BEDTIME 12/14/20 12/14/20 amlodipine 5 mg tablet 5 mg PO DAILY 12/14/20 12/14/20 carisoprodol 250 mg tablet 350 mg PO TID PRN 12/14/20 12/14/20 Previous Rx's Medication Instructions Recorded tadalafil 5 mg tablet 5 mg PO DAILY #90 tab 09/17/20 ketorolac 10 mg tablet 10 mg PO Q6H PRN #14 tab 11/05/20 acetaminophen 325 mg tablet 650 mg PO Q6HR PRN #60 tab 12/15/20 docusate sodium 100 mg capsule 100 mg PO BID #30 cap 12/15/20 (DOK) hydrocodone 5 mg-acetaminophen 325 2 tab PO Q4H PRN #60 tab 12/15/20 mg tablet hydrocodone 5 mg-acetaminophen 325 2 tab PO Q4HR PRN #60 tab 12/15/20 mg tablet hydroxyzine pamoate 25 mg capsule 25 mg PO Q4HR PRN #30 cap 12/15/20 Allergies Allergy/AdvReac Type Severity Reaction Status Date / Time Opioids - Morphine Analogues AdvReac Severe very sick Verified 10/15/20 13:26 [OPIOIDS - MORPHINE ANALOGUES] tramadol [TRAMADOL] AdvReac Severe Weakness Verified 10/15/20 13:26 levofloxacin [From Levaquin] AdvReac Intermediate Numbness Verified 10/15/20 13:26 metronidazole [From Flagyl] AdvReac Intermediate Vomiting Verified 10/15/20 13:26 Review of Systems Review of Systems Narrative: Not complaining of chest pain or palpitations. No lower extremity edema Patient History Medical History Arthritis Asthma Asthma with exacerbation Bilateral inguinal hernia without obstruction or gangrene Diverticulitis Erectile dysfunction Flu History of migraine headaches Hypertension Kidney stones Lower urinary tract symptoms (LUTS) Pneumonia Pulmonary nodule Umbilical hernia without obstruction and without gangrene Surgical History History of back surgery Hx of arthroscopic knee surgery No pertinent past surgical history Family History Father Coronary artery disease Kidney stones Mother Migraines Social History marital status: number of children: 7 household members: children occupational status: previously employed Smoking Status: Former smoker alcohol intake: former substance use type: does not use caffeine: Yes Smoking Status: Former smoker alcohol intake frequency: holidays/special occasions only Substance Use Type: does not use Exam Narrative Exam Narrative: Medical screening exam is done in triage He is alert and able to speak in full sentences with no audible wheezing or respiratory distress Blood pressure is elevated, oxygen saturations and heart rate are appropriate He is able to walk with an easy gait Initial Vital Signs Initial Vital Signs: Vital Signs Temperature 97.8 F 09/23/21 16:16 Pulse Rate 90 09/23/21 16:16 Respiratory Rate 22 09/23/21 16:16 Blood Pressure 187/105 H 09/23/21 16:16 Pulse Oximetry 96 09/23/21 16:16 Course Orders Ordered: ED Orders 09/23/21 16:29 Respiratory Panel (Film Array) Stat Vital Signs Vital signs: Vital Signs - 8 hr 09/23/21 16:16 Temperature 97.8 F Pulse Rate 90 Respiratory Rate 22 Blood Pressure 187/105 H Pulse Oximetry 96 Medical Decision Making Lab Data Labs: Lab Results 09/23/21 Range/Units 16:29 Chlamy pneumoniae PCR Not detected (Not Detect) Adenovirus (PCR) Not detected (Not Detect) B. pertussis DNA (PCR) Not detected (Not Detecte) B.parapertussis DNA PCR Not detected (Not Detecte) Coronavirus OC43 (PCR) Not detected (Not Detect) Coronavirus HKU1 (PCR) Not detected (Not Detect) Coronavirus 229E (PCR) Not detected (Not Detect) SARS-CoV-2 (PCR) Not detected (Not Detecte) Coronavirus NL63 (PCR) Not detected (Not Detect) Human Metapneumovir PCR Not detected (Not Detect) Influenza Type A (PCR) Not detected (Not Detect) Influenza Type B (PCR) Not detected (Not Detect) M. pneumoniae (PCR) Not detected (Not Detect) Parainfluenza 1 (PCR) Not detected (Not Detect) Parainfluenza 2 (PCR) Not detected (Not Detect) Parainfluenza 3 (PCR) Not detected (Not Detect) Parainfluenza 4 (PCR) Not detected (Not Detect) RSV (PCR) Not detected (Not Detect) Entero/Rhino (PCR) Not detected (Not Detect) MDM Narrative Medical decision making narrative: 66-year-old gentleman who complains of cough and dyspnea. He is seen in triage and then chooses to wait in his car. Respiratory panel is unremarkable he is COVID negative. He is given results of his respiratory panel and offered more complete exam with additional diagnostic studies if he chooses to wear mask can comply with hospital policy. He has been seen with previous ER visits with recommendations to follow-up for his blood pressure and it appears that he is chosen to not do so. Blood pr essure remains elevated today and discharge instructions suggest that he follow- up due to his blood pressure. He has had an appropriate medical screening and has been offered the opportunity for more complete evaluation if he chooses. He is safe to leave if he chooses Discharge Plan Departure Patient Disposition: Home Clinical Impression: Cough, Hypertension Instructions: DI for Cough -- Adult Activity Restrictions/Additional Instructions: You have had a medical screening exam in the emergency department Per hospital policy in the middle of a COVID pandemic is that all patients must be masked. If you are willing to wear mask we can do a more thorough evaluation in the emergency department. We did do a viral respiratory panel which looks for 20 different viruses. You do not have COVID, influenza, respiratory syncytial virus or any of the other viruses that can cause the common cold that we have been seeing in our community. Your blood pressure is elevated today I would recommend that you follow-up with your primary care physician Prescriptions: No Action lisinopril 20 MG tablet 20 mg PO DAILY Qty: 0 0RF amlodipine 5 mg Tablet 5 mg PO DAILY 0RF amitriptyline 10 mg Tablet 10 mg PO BEDTIME 0RF carisoprodol 250 mg tablet 350 mg PO TID PRN (Reason: muscle pain) 0RF acetaminophen 325 mg Tablet 650 mg PO Q6HR PRN (Reason: Pain, Mild (1-3)) Qty: 60 0RF docusate sodium [DOK] 100 mg Capsule 100 mg PO BID Qty: 30 0RF hydrocodone-acetaminophen 5-325 mg Tablet 2 tab PO Q4HR PRN (Reason: Pain, Severe (7-10)) Qty: 60 0RF hydroxyzine pamoate 25 mg Capsule 25 mg PO Q4HR PRN (Reason: Nausea And Vomiting) Qty: 30 0RF hydrocodone-acetaminophen 5-325 mg tablet 2 tab PO Q4H PRN (Reason: pain) Qty: 60 0RF gabapentin 800 mg tablet 800 mg PO BID 0RF ketorolac 10 mg tablet 10 mg PO Q6H PRN (Reason: pain) Qty: 14 0RF tadalafil 5 mg tablet 5 mg PO DAILY Qty: 90 3RF Label Comments: NEVER TAKEN Referrals: Alva Rogers MD [Primary Care Provider] -
--- NOTE | 2021-09-23 18:04 | PC.NURSE ---
attempted to call pt (number verified) and was sent to voice mail.
== END 2021-09-23 20:09 | disposition home or self-care (01) ==
PROVIDERS: Emergency Provider Emergency Medicine; PCP Family Medicine
DX: R05.9 Cough, unspecified (principal); R06.00 Dyspnea, unspecified
CPT/HCPCS: 87633; 99281; 99282

== ENCOUNTER → 2022-07-22 11:45 | Outpatient (CLI) | payer MEDICARE, MEDICAID, SELFPAY ==
[2020-12-14 19:03] VITALS: BMI 37.2
--- NOTE | 2022-07-22 | DI.CT.S_ITS ---
PROCEDURE: CT CERVICAL SPINE WO CON INDICATIONS: Spinal stenosis, cervical region TECHNIQUE: Noncontrast 3 mm thick sections acquired from the skull base to the T2-T3 level. Sagittal and coronal reformats were then constructed. For radiation dose reduction, the following was used: automated exposure control, adjustment of mA and/or kV according to patient size. COMPARISON: [facility], CR, XR CERVICAL SPINE 2 OR 3 VIEWS, 07/10/2022, 12:14. [facility], MR, MR CERVICAL SPINE WITHOUT CONTRAST, 10/29/2020, 10:05. FINDINGS: Image quality: Excellent. Bones: No fractures or dislocations. Visualized superior ribs are intact. Intact appearing anterior fixation hardware can be seen7 C5 through C7. The fusion plate appears well seated. Disc spacers are seen at C5-C6 and C6-C7. Focal degenerative change is seen involving the C1-C2 interface anteriorly. At least partially bridging anterior osteophytes are seen C2 through C5. Mild loss of disc height is seen at C4-C5. At C4-C5, there is prominent left-sided facet hypertrophy seen, with at least moderate bilateral neural foraminal narrowing at this level. Moderate to severe bilateral neural foraminal narrowing can be seen at C5-C6, with moderate central canal narrowing seen at this level. Bridging anterior osteophytes are also seen at C7-T1, T1-T2, and partially seen at T2-T3. Soft tissues: Prevertebral soft tissues are normal in thickness. No paravertebral hematomas. No apical pneumothoraces. Atherosclerotic calcification is noted. IMPRESSION: Intact appearing anterior fixation hardware seen C5 through C7. Multiple levels of cervical spine degenerative change are seen, including moderate to severe bilateral neural foraminal narrowing at C5-C6. Bridging anterior osteophytes are seen throughout the upper cervical spine and within the cervical thoracic junction. Dictated by: Quincy Peter M.D. on 07/22/2022 at 11:33 Approved by: Quincy Peter M.D. on 07/22/2022 at 11:37
== END ==
PROVIDERS: PCP Family Medicine; Referring Provider Orthopaedic Surgery Orthopaedic Surgery of the Spine; Visit Provider Orthopaedic Surgery Orthopaedic Surgery of the Spine
DX: M47.812 Spondylosis without myelopathy or radiculopathy, cervical region (principal); M48.02 Spinal stenosis, cervical region; Z98.1 Arthrodesis status
CPT/HCPCS: 72125

== ENCOUNTER → 2023-12-25 13:11 | Outpatient (CLI) | payer MEDICARE, MEDICAID, SELFPAY ==
[2020-12-14 19:03] VITALS: BMI 37.2
--- NOTE | 2023-12-25 | DI.MRI.S_ITS ---
PROCEDURE: MR LUMBAR SPINE WO CON INDICATIONS: Spinal stenosis, lumbar region TECHNIQUE: Noncontrast sagittal T1 spin echo and T2 fast echo, sagittal STIR, and T2 fast spin echo through the lumbar spine. In cases with scoliosis, additional coronal T2 fast spin echo may be performed. COMPARISON: None. FINDINGS: Image quality: Excellent. Alignment and Curvature: There is normal bony alignment. Bone Marrow: Marrow is of normal overall signal. Scattered foci are seen, which are hyperintense on T1-weighted and T2-weighted imaging, which are most consistent with benign vertebral body hemangiomas. The most prominent of these can be seen at the L3 level. No acute vertebral body compression fractures. Spinal Cord: Conus medullaris terminates at the L1 level. Visualized cord demonstrates normal signal and size. Paraspinous Soft Tissues: No paravertebral masses. T12-L1: Normal appearance. L1-L2: The disc height and disk signal are relatively well-preserved. Mild generalized disc bulge is seen. There is a superimposed central disc protrusion. Mild bilateral neural foraminal narrowing is seen. Mild to moderate central canal narrowing is seen. L2-L3: The disc height is well-preserved. Loss of disc signal is seen at this level. Mild generalized disc bulge is seen. Mild facet joint hypertrophy is seen. Minimal bilateral neural foraminal narrowing can be seen. Minimal central canal narrowing is seen. L3-L4: The disc height is well-preserved. Loss of disc signal is seen at this level. Moderate generalized disc bulge is seen. There is a superimposed central disc protrusion. Moderate facet joint hypertrophy is seen. Moderate bilateral neural foraminal narrowing is seen. Moderate central canal narrowing is seen. L4-L5: The disc height is well-preserved. Loss of disc signal is seen at this level. Mild generalized disc bulge is seen. Moderate facet joint hypertrophy is seen. Moderate bilateral neural foraminal narrowing is seen. Mild to moderate central canal narrowing is seen. L5-S1: Moderate loss of disc height is seen. Loss of disc signal is seen. Mild generalized disc bulge is seen. There is a superimposed central disc protrusion. There is a focal annular fissure seen posteriorly. Mild to moderate facet hypertrophy is seen. There is moderate left-sided and at least moderate right-sided neural foraminal narrowing. There is a degree of compression seen upon the exiting right L5 nerve root. Mild central canal narrowing is seen. IMPRESSION: Multiple levels of lumbar spine degenerative change can be seen, which are overall worst at the L5-S1 level. Dictated by: Quincy Peter M.D. on 12/25/2023 at 14:52 Approved by: Qiuncy Peter M.D. on 12/25/2023 at 14:56
== END ==
LOC: MRI 13:13
PROVIDERS: PCP Family Medicine; Referring Provider Orthopaedic Surgery Orthopaedic Surgery of the Spine; Visit Provider Orthopaedic Surgery Orthopaedic Surgery of the Spine
DX: M48.061 Spinal stenosis, lumbar region without neurogenic claudication (principal); M48.07 Spinal stenosis, lumbosacral region; M47.816 Spondylosis without myelopathy or radiculopathy, lumbar region; M47.817 Spondylosis without myelopathy or radiculopathy, lumbosacral region
CPT/HCPCS: 72148

== ENCOUNTER → 2024-01-19 08:38 | Outpatient (CLI) | payer MEDICARE, MEDICAID, SELFPAY ==
[2020-12-14 19:03] VITALS: BMI 37.2
[2024-01-19 09:09] LABS: Add Manual Diff / Slide Review NO; Basophils Absolute Auto 0 /uL (0-100); Basophils Percent Auto 0.4 % (0-2); Eosinophils Absolute Auto 100 /uL (0-450); Eosinophils Percent Auto 1.5 % (2-4); Hematocrit 43.4 % (41-53); Hemoglobin 14.9 g/dL (13.5-17.5); Lymphocytes Absolute Auto 1500 /uL (1100-4500); Mean Corpuscular HGB Conc 34.4 % (30-36); Mean Corpuscular Hemoglobin 29.9 PG (26-34); Monocytes Absolute Auto 500 /uL (0-900); Monocytes Percent Auto 8.3 % (3-14); Neutrophils Absolute Auto 3900 /uL (1500-7000); Neutrophils Percent Auto 64.8 % (50-75); Platelet Count 196 X10^3/uL (150-400); Red Blood Cell Count 4.99 X10^6/uL (4.5-5.9); Red Cell Distribution Width 14.1 % (11.6-14.8)
[2024-01-19 09:18] LABS: Hemoglobin A1C% w Est Avg Glu 7.3 % (4.0-6.0)
[2024-01-19 09:28] LABS: Alanine Aminotransferase 146 IU/L (<50); Albumin 4.7 g/dL (3.5-5.0); Albumin Globulin Ratio 1.7 (1.0-2.8); Alkaline Phosphatase 54 U/L (38-126); Aspartate Aminotransferase 66 IU/L (17-59); BUN Creatinine Ratio 23.1 (6-22); Bilirubin Total 0.7 mg/dL (0.2-1.3); Blood Urea Nitrogen 15 mg/dL (9-20); Calcium 9.8 mg/dL (8.4-10.2); Carbon Dioxide 29 mmol/L (22-32); Chloride 103 mmol/L (98-107); Estimated Glomerular Filt Rate > 60 mL/min (>60); Globulin 2.7 g/dL (1.7-4.1); Glucose 167 mg/dL (80-110); HEMOLYSIS < 15 (0-50); Potassium 4.3 mmol/L (3.4-5.1); Sodium 135 mmol/L (137-145); Total Protein 7.4 g/dL (6.3-8.2)
[2024-01-19 09:59] LABS: Prostate Specific Antigen Scrn 0.567 ng/mL (0.1-4.0)
[2024-01-19 16:44] LABS: Hep C Virus Ab w/Reflex Quant NEGATIVE s/c (NEGATIVE)
== END ==
PROVIDERS: PCP Family Medicine; Referring Provider Family Medicine; Visit Provider Family Medicine
DX: Z11.4 Encounter for screening for human immunodeficiency virus [HIV] (principal); G99.0 Autonomic neuropathy in diseases classified elsewhere; E66.9 Obesity, unspecified; Z12.5 Encounter for screening for malignant neoplasm of prostate; I10 Essential (primary) hypertension
CPT/HCPCS: 36415; 80053; 83036; 85025; 86803; G0103

== ENCOUNTER → 2024-01-22 08:30 | Outpatient (CLI) | payer MEDICARE, MEDICAID, SELFPAY ==
[2020-12-14 19:03] VITALS: BMI 37.2
--- NOTE | 2024-01-22 | DI.US.S_ITS ---
PROCEDURE: US ABD AORTA ANEURYSM SCREEN INDICATIONS: Essential (primary) hypertension TECHNIQUE: Real-time scanning was performed of the aorta and proximal common iliac arteries, with image documentation. COMPARISON: [facility], CT, CT ABDOMEN PELVIS W CON, 08/14/2020, 13:17. FINDINGS: Aorta: Proximal 2.5 cm Mid 1.7 cm Distal 1.7 cm Iliacs: Right KHALIF 1.1 cm Left KHALIF 1.2 cm IMPRESSION: No abdominal aortic aneurysm. Dictated by: Rohit Gan M.D. on 01/22/2024 at 9:45 Approved by: Rohit Gan M.D. on 01/22/2024 at 9:46
== END ==
PROVIDERS: PCP Family Medicine; Referring Provider Family Medicine; Visit Provider Family Medicine
DX: Z13.6 Encounter for screening for cardiovascular disorders (principal); I10 Essential (primary) hypertension
CPT/HCPCS: 76706

== ENCOUNTER 2024-03-24 15:39 | Emergency (ER) | payer MEDICARE, SELFPAY ==
[2020-12-14 19:03] VITALS: BMI 37.2
[2024-03-24 15:40] VITALS: BP 139/80; PULSE 93; RESP 15; TEMP 37.1; O2SAT 95; BMI 34.5
[2024-03-24 15:43] VITALS: O2SAT 91
[2024-03-24 15:44] VITALS: BP 139/80; PULSE 98; O2SAT 95
--- NOTE | 2024-03-24 15:48 | DI.RAD.S_ITS ---
PROCEDURE: XR CHEST 2V INDICATIONS: URI sx, pain with resp TECHNIQUE: 2 views of the chest were acquired. COMPARISON: [facility], CR, XR CHEST 1V, 11/05/2020, 11:30. [facility], CR, XR CHEST 1V, 10/15/2020, 14:34. FINDINGS: Surgical changes and devices: ACDF hardware. Lungs and pleura: Lungs are clear. No pleural effusions or pneumothorax. Mediastinum: Mediastinal contours are normal. Heart size is normal. Bones and chest wall: No suspicious bony abnormalities. Soft tissues appear unremarkable. IMPRESSION: No acute cardiopulmonary abnormality is seen. Dictated by: Gee Abreu M.D. on 03/24/2024 at 15:25 Approved by: Gee Abreu M.D. on 03/24/2024 at 15:26
--- NOTE | 2024-03-24 15:59 | EKG_ITS ---
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
[2024-03-24 16:45] LABS: Influenza A - CEPHEID Flu A NEGATIVE (NEGATIVE); Influenza B - CEPHEID Flu B NEGATIVE (NEGATIVE); Respiratory Syncytial Virus Negative (Negative)
[2024-03-24 16:51] LABS: COVID-19 CEPHEID 4-PLEX PCR POSITIVE (Negative)
--- NOTE | 2024-03-24 17:56 | ED.URI ---
HPI - URI/Sore Throat General Chief Complaint: Upper Respiratory Symptoms Stated Complaint: states he has pneumonia Time Seen by Provider: 03/24/24 16:46 Source: patient Mode of arrival: Ambulatory History of Present Illness HPI Narrative: Patient 68-year-old male history of hypertension presenting today with 3 days of upper respiratory like symptoms. He has had body aches cough cold chills. He continues to stay hydrated. He has no significant shortness of breath but he is I had a bit of phlegm. Related Data Home Medications Medication Instructions Recorded Confirmed carisoprodol 250 mg tablet 350 mg PO TID PRN muscle pain 12/14/20 02/03/24 Previous Rx's Medication Instructions Recorded tadalafil 5 mg tablet 5 mg PO DAILY #90 tabs 09/17/20 ketorolac 10 mg tablet 10 mg PO Q6H PRN pain #14 tabs 11/05/20 amlodipine 5 mg tablet 5 mg PO DAILY #90 tabs 01/07/24 gabapentin 800 mg tablet 800 mg PO QID PRN pain #120 tabs 01/07/24 lisinopril 20 mg tablet 20 mg PO DAILY #90 tabs 01/07/24 dulaglutide 0.75 mg/0.5 mL 0.75 mg (0.5 mL) SUBCUT QWEEK #2 mL 02/04/24 [facility] Allergies Allergy/AdvReac Type Severity Reaction Status Date / Time Opioids - Morphine Analogues AdvReac Severe very sick Verified 03/24/24 15:46 [OPIOIDS - MORPHINE ANALOGUES] tramadol [TRAMADOL] AdvReac Severe Weakness Verified 03/24/24 15:46 levofloxacin [From Levaquin] AdvReac Intermediate Numbness Verified 03/24/24 15:46 metronidazole [From Flagyl] AdvReac Intermediate Vomiting Verified 03/24/24 15:46 Patient History Medical History Recurrent sinusitis (~1964) Elevated LFTs Type 2 diabetes mellitus without complication, with no history of insulin use Peripheral autonomic neuropathy due to underlying disease Obesity (BMI 35.0-39.9 without comorbidity) Benign essential HTN (~2007) Erectile dysfunction Umbilical hernia without obstruction and without gangrene Bilateral inguinal hernia without obstruction or gangrene Lower urinary tract symptoms (LUTS) History of migraine headaches Kidney stones (~1997) Hypertension Asthma Arthritis Diverticulitis Asthma with exacerbation Pulmonary nodule Pneumonia Flu Surgical History Anesthesia History of shoulder surgery (~2020) History of neck surgery (~2021) History of back surgery (~1995) Hx of arthroscopic knee surgery (~1986) No pertinent past surgical history Family History Father Coronary artery disease Kidney stones Mother Migraines Grandfather History of heart disease Grandmother Smoker Social History marital status: number of children: 7 household members: children occupational status: previously employed Smoking Status: Former smoker alcohol intake: former substance use type: does not use caffeine: Yes Smoking Status: Former smoker alcohol intake frequency: holidays/special occasions only Substance Use Type: does not use Exam Initial Vital Signs Initial Vital Signs: Vital Signs Temperature 98.7 F 03/24/24 15:40 Pulse Rate 93 H 03/24/24 15:40 Respiratory Rate 15 03/24/24 15:40 Blood Pressure 139/80 03/24/24 15:40 Pulse Oximetry 95 03/24/24 15:40 Oxygen Delivery Method Room Air 03/24/24 15:40 GENERAL: Alert well-appearing 60-year-old male and in no acute distress. HEENT: Head atraumatic,EOMI, pupils reactive, face symmetric, moist mucous membranes CARDIOVASCULAR: Regular rate and rhythm without murmurs, rubs or gallops. RESPIRATORY: Breath sounds equal bilaterally, no wheezes rales or rhonchi. Speaks in full sentences no respiratory distress ABDOMEN: Soft, nontender. Normoactive bowel sounds all 4 quadrants. No guarding or rebound. EXTREMITIES: Normal range of motion, no clubbing or edema. Neurovascularly intact NEUROLOGICAL: Alert and oriented x4.Normal gait and speech. SKIN: Warm, dry, no laceration, no petechiae, no rashes or lesions. Course Orders Ordered: ED Orders 03/24/24 15:48 XR chest 2V Stat EKG-12 Lead Stat 03/24/24 15:50 Covid-19 + FLU A/B + RSV - PCR Stat Vital Signs Vital signs: Vital Signs - 8 hr 03/24/24 15:40 03/24/24 15:43 03/24/24 15:44 Temperature 98.7 F Pulse Rate 93 H 98 H Respiratory Rate 15 Blood Pressure 139/80 Pulse Oximetry 95 91 95 Oxygen Delivery Method Room Air 03/24/24 15:44 03/24/24 18:00 03/24/24 18:05 Temperature Pulse Rate 91 H Respiratory Rate Blood Pressure 139/80 Pulse Oximetry 98 96 Oxygen Delivery Method 03/24/24 18:05 Temperature Pulse Rate Respiratory Rate Blood Pressure 134/74 Pulse Oximetry Oxygen Delivery Method MDM - URI/Sore Throat Lab Data Labs: Lab Results 03/24/24 Range/Units 15:50 SARS-CoV-2 (PCR) Positive H (Negative) Influenza A (RT-PCR) Flu a negative (NEGATIVE) Influenza B (RT-PCR) Flu b negative (NEGATIVE) RSV (PCR) Negative (Negative) Imaging Data Chest x-ray: Radiologist's Impression: PROCEDURE: XR CHEST 2V INDICATIONS: URI sx, pain with resp TECHNIQUE: 2 views of the chest were acquired. COMPARISON: [facility], CR, XR CHEST 1V, 11/05/2020, 11:30. [facility], CR, XR CHEST 1V, 10/15/2020, 14:34. FINDINGS: Surgical changes and devices: ACDF hardware. Lungs and pleura: Lungs are clear. No pleural effusions or pneumothorax. Mediastinum: Mediastinal contours are normal. Heart size is normal. Bones and chest wall: No suspicious bony abnormalities. Soft tissues appear unremarkable. IMPRESSION: No acute cardiopulmonary abnormality is seen. Dictated by: Gee Abreu M.D. on 03/24/2024 at 15:25 ECG Data Attestation: I personally reviewed and interpreted this ECG as follows: Interpretation: Normal sinus rhythm rate 90 SC interval 156 QRS [address] changes [place] Narrative Medical decision making narrative: Patient is 68-year-old male history of hypertension presenting today with upper respiratory like symptoms. His COVID test is positive x-ray is clear no evidence of pneumonia. His oxygen level is 98%. At this time no indication for admission. He continues to stay hydrated. No need for antibiotics. Strict return precautions discussed. Discharge Plan Departure Patient Disposition: Home Clinical Impression: COVID-19 Instructions: COVID-19 Activity Restrictions/Additional Instructions: *You have been diagnosed with COVID-19 *What to do: At this time no indication for antibiotics chest x-ray is clear. Expect to have body aches fever and chills ongoing for the next week or 2. Continue to stay hydrated with fluids. Monitor oxygen *Continue to take medications as directed Tylenol or Motrin as needed for pain and fever *Follow up with your primary care provider in 2-3 days or call [phone] *Return to ER if you should have increased shortness of breath increased confusion decreasing fluid intake oxygen level less than 90% or any new, worsening or concerning symptoms Prescriptions: No Action lisinopril 20 mg tablet 20 mg PO DAILY Qty: 90 3RF amlodipine 5 mg tablet 5 mg PO DAILY Qty: 90 3RF gabapentin 800 mg tablet 800 mg PO QID PRN (Reason: pain) Qty: 120 11RF Trulicity 0.75 mg/0.5 mL pen injector 0.75 mg SUBCUT QWEEK Qty: 2 11RF carisoprodol 250 mg tablet 350 mg PO TID PRN (Reason: muscle pain) ketorolac 10 mg tablet 10 mg PO Q6H PRN (Reason: pain) Qty: 14 0RF tadalafil 5 mg tablet 5 mg PO DAILY Qty: 90 3RF Patient Comments: NEVER TAKEN Referrals: Annette Joy DO [Primary Care Provider] - Stand Alone Forms: Patient Portal/API
[2024-03-24 18:00] VITALS: O2SAT 98
[2024-03-24 18:05] VITALS: BP 134/74; PULSE 91; O2SAT 96
== END 2024-03-24 18:10 | disposition home or self-care (01) ==
PROVIDERS: Emergency Medicine; Emergency Provider Emergency Medicine; PCP Family Medicine
DX: U07.1 COVID-19 (principal)
CPT/HCPCS: 0241U; 71046; 93005; 99282; 99284

== ENCOUNTER → 2024-05-05 11:15 | Outpatient (CLI) | payer MEDICARE, SELFPAY ==
[2020-12-14 19:03] VITALS: BMI 37.2
[2024-05-05 12:36] LABS: HEMOLYSIS < 15 (0-50); Iron 101 ug/dL (49-181)
[2024-05-05 12:38] LABS: Alanine Aminotransferase 62 IU/L (<50); Albumin 4.6 g/dL (3.5-5.0); Albumin Globulin Ratio 1.7 (1.0-2.8); Alkaline Phosphatase 57 U/L (38-126); Aspartate Aminotransferase 42 IU/L (17-59); Bilirubin Total 0.7 mg/dL (0.2-1.3); Bilirubin Unconjugated 0.2 mg/dL (0.0-1.1); Cholesterol 247 mg/dL (140-199); Creatine Kinase 127 U/L (55-170); Globulin 2.7 g/dL (1.7-4.1); HDL Cholesterol 48 mg/dL (40-60); HEMOLYSIS < 15 (0-50); LDL Cholesterol Calculated 156 mg/dL (<100); Total Protein 7.3 g/dL (6.3-8.2); Triglycerides 216 mg/dL (35-150)
[2024-05-05 12:44] LABS: Transferrin 296 mg/dL (206-381)
[2024-05-05 12:59] LABS: Hemoglobin A1C% w Est Avg Glu 5.6 % (4.0-6.0)
[2024-05-05 16:54] LABS: Hepatitis B Surface Antigen NEGATIVE s/c (NEGATIVE)
[2024-05-06 03:41] LABS: Ceruloplasmin 23.4 mg/dL (16.0-31.0)
[2024-05-06 07:36] LABS: Hepatitis B Surf Ab Qualitativ Non Reactive (.)
[2024-05-07 03:33] LABS: Percent Iron Saturation 29 % (20-50); Total Iron Binding Capacity 344 ug/dL (261-462)
== END ==
PROVIDERS: PCP Family Medicine; Referring Provider Family Medicine; Visit Provider Family Medicine
DX: R79.89 Other specified abnormal findings of blood chemistry (principal); E11.9 Type 2 diabetes mellitus without complications; I10 Essential (primary) hypertension
CPT/HCPCS: 36415; 80061; 80076; 82390; 82550; 83036; 83540; 83550; 84443; 86706; 87340

== ENCOUNTER → 2024-08-25 09:19 | Outpatient (CLI) | payer MEDICARE, SELFPAY ==
[2020-12-14 19:03] VITALS: BMI 37.2
--- NOTE | 2024-08-25 | DI.MRI.S_ITS ---
PROCEDURE: MR CERVICAL SPINE WO CON INDICATIONS: Spinal stenosis, cervical region TECHNIQUE: Noncontrast sagittal T1 spin echo and T2 fast spin echo, sagittal STIR, foraminal oblique sagittal T2 fast spin echo, and axial gradient echo or T2 fast spin echo through the cervical spine. COMPARISON: [facility] [place], CR, XR CERVICAL SPINE 2 OR 3 VIEWS, 12/22/2023, 8:41. [facility], CT, CT CERVICAL SPINE WO CON, 07/22/2022, 11:51. [facility], RF, CERVICAL SPINE INTERLAMINAR, 07/25/2024, 14:50. [facility], MR, MR CERVICAL SPINE WITHOUT CONTRAST, 10/29/2020, 10:05 (images only, no report). FINDINGS: Image quality: There is artifact associated with the metallic hardware. Alignment and Curvature: There is straightening of the normal cervical lordosis. There is minimal retrolisthesis seen at the C3-C4 level. Bone Marrow: Marrow demonstrates normal overall signal. Spinal Cord: Visualized spinal cord has normal size and signal. No cerebellar tonsillar herniation. Paraspinous Soft Tissues: No paravertebral masses. Prevertebral soft tissues are normal in thickness. Anterior fixation hardware can be seen C5 through C7. C2-C3: The disc height and disk signal are relatively well-preserved. Mild to moderate disc osteophyte complex is seen, which is eccentric to the left. Moderate facet joint hypertrophy is seen. There is moderate left-sided and mild right-sided neural foraminal narrowing. Mild central canal narrowing is seen. When comparison is made with the prior images, these findings are similar. C3-C4: The disc height is well-preserved. Loss of disc signal is seen at this level. Moderate disc osteophyte complex is seen, which is eccentric to the right. There is at least moderate facet hypertrophy on both sides. There is severe right-sided and moderate to severe left-sided neural foraminal narrowing. Mild to moderate central canal narrowing is seen, with minimal mass effect upon the ventral spinal cord. These imaging findings have progressed compared to the prior study. C4-C5: Mild loss of disc height is seen. Loss of disc signal is seen. Mild to moderate disc osteophyte complex is seen. There is at least moderate facet hypertrophy, left worse than right. There is moderate left-sided and mild right-sided neural foraminal narrowing. Mild central canal narrowing is seen. When comparison is made with the prior images, these findings are similar. C5-C6: Postoperative changes are seen at this level. At least moderate disc osteophyte complex is seen. Uncovertebral joint hypertrophy is seen at this level. At least moderate facet hypertrophy is seen. Moderate to severe bilateral neural foraminal narrowing can be seen. Mild central canal narrowing is seen. The degree of central canal narrowing is clearly improved compared to the prior. C6-C7: There are postoperative changes seen at this level. Moderate disc osteophyte complex is seen, which is eccentric to the right. Moderate facet joint hypertrophy is seen. There is moderate to severe bilateral neural foraminal narrowing seen. Minimal to mild central canal narrowing is seen. The degree of central canal narrowing at this level is improved compared to the preoperative MRI. C7-T1: Mild loss of disc height is seen. Loss of disc signal is seen. A mild degree of generalized disc osteophyte complex is seen. Mild to moderate facet hypertrophy is seen. No neural foraminal narrowing or central canal narrowing can be seen. When comparison is made with the prior images, these findings are similar. IMPRESSION: Since the prior MRI, there is been fusion change C5 through C7. The degrees of central canal narrowing at C5-C6 and C6-C7 are improved compared to 2021. There is progression of degenerative change at C3-C4 compared to the 202 MRI. Dictated by: Quincy Peter M.D. on 08/25/2024 at 13:27 Approved by: Quincy Peter M.D. on 08/25/2024 at 13:34
== END ==
PROVIDERS: PCP Family Medicine; Referring Provider Physical Medicine & Rehabilitation; Visit Provider Physical Medicine & Rehabilitation
DX: M48.02 Spinal stenosis, cervical region (principal); M47.812 Spondylosis without myelopathy or radiculopathy, cervical region; Z98.1 Arthrodesis status
CPT/HCPCS: 72141

== ENCOUNTER 2024-11-01 09:19 | Emergency (ER) | payer MEDICARE, SELFPAY ==
[2020-12-14 19:03] VITALS: BMI 37.2
[2024-11-01 10:05] VITALS: BP 168/102; PULSE 86; RESP 19; TEMP 36.6; O2SAT 97; BMI 29.0
--- NOTE | 2024-11-01 10:12 | DI.RAD.S_ITS ---
PROCEDURE: XR HAND RT MIN 3V INDICATIONS: pain s/p right hand carpal tunnel surgery 3 weeks. TECHNIQUE: 3 views of the hand(s) acquired. COMPARISON: None. FINDINGS: Bones: No fractures or dislocations. Carpal bones are normally aligned. No suspicious bony lesions. Moderate 1st CMC joint and triscaphe joint osteoarthritis. Mild 2nd through 5th interphalangeal joint osteoarthritis. Soft tissues: No suspicious soft tissue calcifications. Small, linear, metallic density foreign body in the soft tissues of the tip of the 2nd finger. IMPRESSION: No acute bony abnormality. Dictated by: Adelita Oneal MD, PhD on 11/01/2024 at 10:51 Approved by: Adelita Oneal MD, PhD on 11/01/2024 at 10:52
--- NOTE | 2024-11-01 12:02 | ED.EXTPRO ---
HPI - Extremity Problem <Gentry Kennedy PA-C - Last Filed: 11/01/24 13:39> General Chief complaint: Extremity Problem,Nontraumatic Stated complaint: swelling R hand, had carpal tunnel surgery Time Seen by Provider: 11/01/24 11:33 Source: patient Mode of arrival: Family Vehicle History of Present Illness HPI Narrative: 69-year-old male with past medical history type 2 diabetes, peripheral neuropathy, hypertension presents to the ED with a right hand injury sustained yesterday. Patient states that he had carpal tunnel surgery performed by Dr. Somers 3 weeks ago, was doing really well and his wrist was feeling much better than before. However, yesterday patient tried to catch an object with his right hand slipped and fell and struck his right hand on the floor. Since then, patient states that he has had pain in the hand and wrist and forearm as well as swelling. Pain is not controlled with Advil. Patient called Dr. Somers's office who were willing to see him at the [place] office. Patient states that he did not want to drive down to [place], therefore came to the ED. no numbness, tingling, weakness. Related Data Home Medications Medication Instructions Recorded Confirmed carisoprodol 250 mg tablet 350 mg PO TID PRN muscle pain 12/14/20 05/04/24 Previous Rx's Medication Instructions Recorded tadalafil 5 mg tablet 5 mg PO DAILY #90 tabs 09/17/20 ketorolac 10 mg tablet 10 mg PO Q6H PRN pain #14 tabs 11/05/20 amlodipine 5 mg tablet 5 mg PO DAILY #90 tabs 01/07/24 gabapentin 800 mg tablet 800 mg PO QID PRN pain #120 tabs 01/07/24 lisinopril 20 mg tablet 20 mg PO DAILY #90 tabs 01/07/24 lidocaine 5 % topical ointment 1 applic topical BID PRN for pain 05/30/24 #30 caps dulaglutide 3 mg/0.5 mL 3 mg (0.5 mL) SUBCUT QWEEK #6 mL 09/06/24 subcutaneous pen injector ([facility] [address]) albuterol sulfate 90 mcg/actuation 1 - 2 inh inhalation Q4-6H PRN 09/12/24 aerosol inhaler shortness of breath or wheezing #8.5 grams ketorolac 10 mg tablet 10 mg PO Q6H PRN pain #20 tabs 11/01/24 Allergies Allergy/AdvReac Type Severity Reaction Status Date / Time Opioids - Morphine Analogues AdvReac Severe very sick Verified 11/01/24 10:14 [OPIOIDS - MORPHINE ANALOGUES] tramadol [TRAMADOL] AdvReac Severe Weakness Verified 11/01/24 10:14 levofloxacin [From Levaquin] AdvReac Intermediate Numbness Verified 11/01/24 10:14 metronidazole [From Flagyl] AdvReac Intermediate Vomiting Verified 05/04/24 10:11 Review of Systems <Gentry Kennedy PA-C - Last Filed: 11/01/24 13:39> Constitutional Constitutional: Denies chills, Denies fatigue, Denies fever(s), Denies frequent falls, Denies lethargy and Denies weakness Eyes Eyes: Denies change in vision, Denies eye discharge, Denies irritation and Denies loss of vision ENT Ears, Nose, Mouth, and Throat: Denies change in voice, Denies dizziness, Denies neck pain, Denies sore throat and Denies throat swelling Cardiovascular Cardiovascular: Denies chest pain, Denies irregular heart rhythm, Denies lightheadedness, Denies palpitations, Denies dyspnea, Denies dyspnea on exertion and Denies orthopnea Respiratory Respiratory: Denies cough, Denies dyspnea, Denies dyspnea on exertion and Denies wheezing Gastrointestinal Gastrointestinal: Denies abdominal pain, Denies change in bowel habits, Denies diarrhea, Denies nausea and Denies vomiting Musculoskeletal Musculoskeletal: Denies neck pain and Denies numbness Comments: Right hand, wrist, fore arm swelling, pain Integumentary/Breasts Skin/Breast: Denies pruritus, Denies erythema, Denies rash and Denies wounds Neurologic Neurologic: Denies behavioral changes, Denies confusion, Denies dizziness, Denies frequent falls, Denies loss of vision, Denies numbness and Denies weakness Psychiatric Psychiatric: Denies anxiety, Denies behavioral changes, Denies confusion, Denies depression, Denies homicidal ideation and Denies suicidal ideation Endocrine Endocrine: Denies fatigue, Denies flushing and Denies palpitations Hematologic/Lymphatic Hematologic/Lymphatic: Denies easy bruising Allergic/Immunologic Allergic/Immunologic: Denies urticaria, Denies throat swelling and Denies wheezing Patient History <Gentry Kennedy PA-C - Last Filed: 11/01/24 13:39> Medical History Mixed hyperlipidemia Recurrent sinusitis (~1964) Elevated LFTs Type 2 diabetes mellitus without complication, with no history of insulin use Peripheral autonomic neuropathy due to underlying disease Obesity (BMI 35.0-39.9 without comorbidity) Benign essential HTN (~2007) Erectile dysfunction Umbilical hernia without obstruction and without gangrene Bilateral inguinal hernia without obstruction or gangrene Lower urinary tract symptoms (LUTS) History of migraine headaches Kidney stones (~1997) Hypertension Asthma Arthritis Diverticulitis Asthma with exacerbation Pulmonary nodule Pneumonia Flu Surgical History Anesthesia History of shoulder surgery (~2020) History of neck surgery (~2021) History of back surgery (~1995) Hx of arthroscopic knee surgery (~1986) No pertinent past surgical history Family History Father Coronary artery disease Kidney stones Mother Migraines Grandfather History of heart disease Grandmother Smoker Social History marital status: number of children: 7 household members: children occupational status: previously employed Smoking Status: Former smoker alcohol intake: former substance use type: does not use caffeine: Yes Smoking Status: Former smoker tobacco type: cigarettes alcohol intake frequency: holidays/special occasions only Exam <Gentry Kennedy PA-C - Last Filed: 11/01/24 13:39> Narrative Exam Narrative: Const General:?cooperative, healthy appearing and comfortable [facility] Head:?normal to inspection Ears:?hearing grossly normal bilaterally Nose:?external nose normal Face and sinus:?normal facial exam and sinuses nontender Mouth:?oral mucosae normal Throat:?posterior oropharynx normal Eyes General:?appearance normal, both eyes and all related structures Neck Neck:?normal visual inspection and no lymphadenopathy noted Resp Effort & Inspection:?normal respiratory effort Auscultation:?clear to auscultation bilaterally Cardio Rate:?regular rate Rhythm:?regular rhythm Musculoskeletal Right hand, wrist appears swollen, tender to touch. Neurovascularly intact. The surgical incision from the carpal tunnel surgery appears to be healing without signs of infection. There is however some wound dehiscence, which patient said that his surgeon said to expect. Neuro General:?patient alert, patient awake and patient oriented x3 Initial Vital Signs Initial Vital Signs: Vital Signs Temperature 97.9 F 11/01/24 10:05 Pulse Rate 86 11/01/24 10:05 Respiratory Rate 19 11/01/24 10:05 Blood Pressure 168/102 H 11/01/24 10:05 Pulse Oximetry 97 11/01/24 10:05 Oxygen Delivery Method Room Air 11/01/24 10:05 <Chance Argueta MD - Last Filed: 11/01/24 22:09> Initial Vital Signs Initial Vital Signs: Vital Signs Temperature 97.9 F 11/01/24 10:05 Pulse Rate 86 11/01/24 10:05 Respiratory Rate 19 11/01/24 10:05 Blood Pressure 168/102 H 11/01/24 10:05 Pulse Oximetry 97 11/01/24 10:05 Oxygen Delivery Method Room Air 11/01/24 10:05 Course <Gentry Kennedy PA-C - Last Filed: 11/01/24 13:39> Orders Ordered: Discontinued Medications Ketorolac Tromethamine (Ketorolac 30 Mg/Ml Vial) 30 mg IM NOW ONE Stop: 11/01/24 12:14 Last Admin: 11/01/24 12:24 Dose: 30 mg Documented By: DIANNA Vital Signs Vital signs: Vital Signs - 8 hr 11/01/24 10:05 11/01/24 13:05 Temperature 97.9 F Pulse Rate 86 76 Respiratory Rate 19 18 Blood Pressure 168/102 H 162/99 H Pulse Oximetry 97 98 Oxygen Delivery Method Room Air Room Air <Chance Argueta MD - Last Filed: 11/01/24 22:09> Orders Ordered: Discontinued Medications Ketorolac Tromethamine (Ketorolac 30 Mg/Ml Vial) 30 mg IM NOW ONE Stop: 11/01/24 12:14 Last Admin: 11/01/24 12:24 Dose: 30 mg Documented By: DIANNA Vital Signs Vital signs: Vital Signs - 8 hr 11/01/24 10:05 11/01/24 13:05 Temperature 97.9 F Pulse Rate 86 76 Respiratory Rate 19 18 Blood Pressure 168/102 H 162/99 H Pulse Oximetry 97 98 Oxygen Delivery Method Room Air Room Air MDM - Extremity (Nontraumatic) <Gentry Kennedy PA-C - Last Filed: 11/01/24 13:39> MDM Narrative Medical decision making narrative: 69-year-old male with past medical history type 2 diabetes, peripheral neuropathy, hypertension presents to the ED with a right hand injury sustained yesterday. Concern for fracture/dislocation versus musculoskeletal sprain/strain versus other. Will obtain x-rays. Will give Toradol. Will reassess. Symptoms improved with Toradol. X-rays without acute findings. Discussed findings with patient, recommend he follow-up with Dr. Somers's office as soon as possible for further evaluation. ED return precautions were discussed with patient. Patient verbalized understanding. Medical records reviewed: Yes Discharge Plan Departure Patient Disposition: Home Clinical Impression: Hand injury Qualifiers: Encounter type: initial encounter Laterality: right Qualified Code(s): S69.91XA - Unspecified injury of right wrist, hand and finger(s), initial encounter Instructions: DI for Hand Injury Activity Restrictions/Additional Instructions: Were evaluated in the emergency department for a right hand injury. Your x-ray was normal with no evidence of fractures or dislocations. It is likely that you have sprained the hand. You were given an injection of Toradol for the pain and swelling. You may continue to take Toradol at home as prescribed. Please follow-up with your ortho surgeon Dr. Somers as soon as possible for further evaluation. Return to the ED if you have worsening symptoms, numbness, tingling, weakness. Prescriptions: New ketorolac 10 mg tablet 10 mg PO Q6H PRN (Reason: pain) Qty: 20 0RF Rx Instructions: maximum total duration of 5 days from all oral, intranasal, or parenteral formulations; not to exceed 40mg total per day No Action lidocaine 5 % ointment 1 applic topical BID PRN (Reason: for pain) Qty: 30 10RF albuterol sulfate 90 mcg/actuation HFA aerosol inhaler 1 - 2 inh inhalation Q4-6H PRN (Reason: shortness of breath or wheezing) Qty: 8.5 11RF lisinopril 20 mg tablet 20 mg PO DAILY Qty: 90 3RF amlodipine 5 mg tablet 5 mg PO DAILY Qty: 90 3RF gabapentin 800 mg tablet 800 mg PO QID PRN (Reason: pain) Qty: 120 11RF Trulicity 3 mg/0.5 mL pen injector 3 mg SUBCUT QWEEK Qty: 6 3RF Hold Instructions: See call notes; pt d/c and will discuss in Oct carisoprodol 250 mg tablet 350 mg PO TID PRN (Reason: muscle pain) ketorolac 10 mg tablet 10 mg PO Q6H PRN (Reason: pain) Qty: 14 0RF tadalafil 5 mg tablet 5 mg PO DAILY Qty: 90 3RF Patient Comments: NEVER TAKEN Referrals: Annette Joy DO [Primary Care Provider] - Stand Alone Forms: Patient Portal/API/Survey ED Sign-out <Chance Argueta MD - Last Filed: 11/01/24 22:09> Cosign ED Attending Ruby Attestation: I was immediately available in the department for consultation. This documentation has been reviewed and I agree with assessment and plan. Supervised by Chance Argueta MD
--- NOTE | 2024-11-01 12:18 | DI.RAD.S_ITS ---
PROCEDURE: XR WRIST RT MIN 3V INDICATIONS: injury s/p carpel tunnel surgery TECHNIQUE: 4 views of the wrist were acquired. COMPARISON: None. FINDINGS: Bones: No fractures or dislocations. Osteoarthritic changes along radial aspect of right wrist are seen most notably involving 1st CMC joint and triscaphe joint. No suspicious bony lesions. Soft tissues: No suspicious soft tissue calcifications. IMPRESSION: No acute fracture or dislocation. Moderate wrist joint osteoarthritis most notably involving 1st CMC joint and triscaphe joint. Dictated by: Clay Guy M.D. on 11/01/2024 at 12:47 Approved by: Clay Guy M.D. on 11/01/2024 at 12:48
[2024-11-01] MEDS: KETOROLAC 30 MG/ML VIAL IM (12:24)
[2024-11-01 13:05] VITALS: BP 162/99; PULSE 76; RESP 18; O2SAT 98
== END 2024-11-01 13:05 | disposition home or self-care (01) ==
PROVIDERS: Emergency Provider Student in an Organized Health Care Education/Training Program; PCP Family Medicine
DX: S69.91XA Unspecified injury of right wrist, hand and finger(s), initial encounter (principal); Z98.890 Other specified postprocedural states; E11.42 Type 2 diabetes mellitus with diabetic polyneuropathy; W18.30XA Fall on same level, unspecified, initial encounter
CPT/HCPCS: 73110; 73130; 96372; 99283; 99284; J1885

== ENCOUNTER → 2024-11-09 08:46 | Outpatient (CLI) | payer MEDICARE, SELFPAY ==
[2020-12-14 19:03] VITALS: BMI 37.2
[2024-11-09 09:46] LABS: Alanine Aminotransferase 36 IU/L (<50); Albumin 4.6 g/dL (3.5-5.0); Albumin Globulin Ratio 1.6 (1.0-2.8); Alkaline Phosphatase 53 U/L (38-126); Aspartate Aminotransferase 32 IU/L (17-59); BUN Creatinine Ratio 18.1 (6-22); Bilirubin Total 0.5 mg/dL (0.2-1.3); Blood Urea Nitrogen 13 mg/dL (9-20); Calcium 9.4 mg/dL (8.4-10.2); Carbon Dioxide 20 mmol/L (22-32); Chloride 101 mmol/L (98-107); Cholesterol 280 mg/dL (140-199); Estimated Glomerular Filt Rate > 60 mL/min (>60); Globulin 2.8 g/dL (1.7-4.1); Glucose 121 mg/dL (80-110); HDL Cholesterol 64 mg/dL (40-60); HEMOLYSIS < 15 (0-50); LDL Cholesterol Calculated 196 mg/dL (<100); Potassium 4.5 mmol/L (3.4-5.1); Sodium 135 mmol/L (137-145); Total Protein 7.4 g/dL (6.3-8.2); Triglycerides 100 mg/dL (35-150)
[2024-11-09 10:27] LABS: Hemoglobin A1C% w Est Avg Glu 5.2 % (4.0-6.0)
== END ==
PROVIDERS: PCP Family Medicine; Referring Provider Family Medicine; Visit Provider Family Medicine
DX: E11.9 Type 2 diabetes mellitus without complications (principal); I10 Essential (primary) hypertension; E78.2 Mixed hyperlipidemia
CPT/HCPCS: 36415; 80053; 80061; 83036

== ENCOUNTER → 2024-11-14 15:49 | Outpatient (CLI) | payer MEDICARE, MEDICAID, SELFPAY ==
[2020-12-14 19:03] VITALS: BMI 37.2
--- NOTE | 2024-11-14 15:51 | DI.MRI.S_ITS ---
PROCEDURE: MR WRIST RT WO CON INDICATIONS: r/o torn ligament TECHNIQUE: Noncontrast coronal proton density fast spin echo and T2 fast spin echo with fat saturation; coronal 3-D gradient echo, axial T1 spin echo and T2 fast spin echo with fat saturation, sagittal T1 spin echo through the wrist. COMPARISON: [facility], CR, XR WRIST RT MIN 3V, 11/01/2024, 12:21. [facility] [place], CR, XR WRIST 3+ VIEWS RIGHT, 11/10/2024, 16:30. FINDINGS: Image quality: Excellent. Bones and cartilage: The carpal bones are normally aligned. Moderate osteoarthritic changes throughout wrist joints are seen most notably involving 1st CMC joint and triscaphe joint. Extensive subcortical cystic changes are noted involving 1st metacarpal base, trapezium, trapezoid, proximal capitate, lunate, scaphoid and triquetrum concerning for erosion secondary to inflammatory arthritis. No acute fracture or dislocation. No evidence of avascular necrosis. Carpal ligaments: The scapholunate ligament appears thickened with intrasubstance T2 hyperintense signal. The lunotriquetral ligament is intact. In the absence of intra-articular contrast, the extrinsic carpal ligaments are not well identified. On sagittal images, the pisohamate ligament appears intact. Triangular fibrocartilage complex: T2 hyperintense signal throughout triangular fibrocartilage is seen suggestive of myxoid degenerative changes. Focal area of full-thickness perforation cannot be excluded. The extensor carpi ulnaris tendon is thickened with intrasubstance T2 hyperintense signal. Tendons and soft tissues: Edema within carpal tunnel is seen . The flexor tendons and the median nerve are within normal limits. There is edema within the thenar muscles without full-thickness muscle rupture or drainable intramuscular fluid collection. The ulnar nerve appears normal within Guyon's canal. Rest of the extensor tendon compartments demonstrate normal morphology, without pathologic tendon sheath fluid. No soft tissue ganglion cysts. IMPRESSION: 1. Extensive osteoarthritic changes throughout right wrist joints most notably involving 1st CMC joint and triscaphe joint. No fracture or dislocation. Extensive subcortical cystic changes involving carpal bones and 1st metacarpal base as described above concerning for erosive changes secondary to inflammatory arthropathy suggest clinical correlation. No evidence of avascular necrosis. 2. Low-grade scaphoid ligament sprain. No full-thickness ligament rupture. 3. Myxoid degenerative changes are noted in triangular fibrocartilage with likely areas of full-thickness perforations. 4. Tendinosis and low-grade intrasubstance partial-thickness tear involving extensor carpi ulnaris tendon. Rest of the extensor tendons are intact. 5. Soft tissue edema within carpal tunnel concerning for synovitis. The flexor tendons are intact. No signal abnormality is seen in median nerve and ulnar nerve. 6. Edema involving thenar muscles concerning for muscle strain versus myositis. No intramuscular mass or fluid collection. Dictated by: Clay Guy M.D. on 11/15/2024 at 21:44 Approved by: Clay Guy M.D. on 11/15/2024 at 21:54
== END ==
PROVIDERS: PCP Family Medicine; Referring Provider Physician Assistant; Visit Provider Physician Assistant
DX: S63.301A Traumatic rupture of unspecified ligament of right wrist, initial encounter (principal); S63.591A Other specified sprain of right wrist, initial encounter; S66.811A Strain of other specified muscles, fascia and tendons at wrist and hand level, right hand, initial encounter; M25.431 Effusion, right wrist; X58.XXXA Exposure to other specified factors, initial encounter
CPT/HCPCS: 73221

== ENCOUNTER → 2025-03-21 09:11 | Outpatient (CLI) | payer MEDICARE, MEDICAID, SELFPAY ==
[2020-12-14 19:03] VITALS: BMI 37.2
[2025-03-21 10:10] LABS: Hemoglobin A1C% w Est Avg Glu 5.3 % (4.0-6.0)
[2025-03-21 10:18] LABS: Blood Urea Nitrogen 14 mg/dL (9-20); Calcium 9.8 mg/dL (8.4-10.2); Carbon Dioxide 24 mmol/L (22-32); Chloride 97 mmol/L (98-107); Estimated Glomerular Filt Rate > 60 mL/min (>60); Glucose 120 mg/dL (70-99); HEMOLYSIS < 15 (0-50); Potassium 4.1 mmol/L (3.4-5.1); Sodium 133 mmol/L (137-145)
[2025-04-02 23:36] LABS: Percent Free Testosterone 2.18 % (1.50-4.20)
== END ==
PROVIDERS: PCP Family Medicine; Referring Provider Family Medicine; Visit Provider Family Medicine
DX: Z00.00 Encounter for general adult medical examination without abnormal findings (principal); E11.9 Type 2 diabetes mellitus without complications; I10 Essential (primary) hypertension
CPT/HCPCS: 36415; 80048; 83036; 84402; 84403

== ENCOUNTER → 2025-08-04 11:02 | Outpatient (CLI) | payer OTHER, SELFPAY ==
[2020-12-14 19:03] VITALS: BMI 37.2
[2025-08-04 11:59] LABS: Hemoglobin A1C% w Est Avg Glu 5.5 % (4.0-6.0)
[2025-08-04 12:00] LABS: Alanine Aminotransferase 34 IU/L (<50); Albumin 4.7 g/dL (3.5-5.0); Albumin Globulin Ratio 1.7 (1.0-2.8); Alkaline Phosphatase 52 U/L (38-126); Blood Urea Nitrogen 20 mg/dL (9-20); Calcium 9.7 mg/dL (8.4-10.2); Carbon Dioxide 23 mmol/L (22-32); Chloride 103 mmol/L (98-107); Estimated Glomerular Filt Rate > 60 mL/min (>60); Globulin 2.8 g/dL (1.7-4.1); Glucose 114 mg/dL (70-99); HEMOLYSIS 20 (0-50); Potassium 4.4 mmol/L (3.4-5.1); Sodium 135 mmol/L (137-145); Total Protein 7.5 g/dL (6.3-8.2)
== END ==
PROVIDERS: PCP Family Medicine; Referring Provider Family Medicine; Visit Provider Family Medicine
DX: E11.9 Type 2 diabetes mellitus without complications (principal); E66.9 Obesity, unspecified; R79.89 Other specified abnormal findings of blood chemistry; E78.2 Mixed hyperlipidemia; I10 Essential (primary) hypertension
CPT/HCPCS: 36415; 80053; 83036